=== PATIENT | female | born 1970 | race Caucasian/White ===

== ENCOUNTER 2016-05-02 13:21 | Emergency (ER) | payer BC ==
[2016-05-02 14:56] VITALS: BP 153/98
--- NOTE | 2016-05-02 15:05 | UC ---
Respiratory Complaint HPI - HPI Summary HPI Summary: The patient comes in today for: 1. Sinus pressure--mostly on the left. Onset: Over the last 3 days--getting worse each day. Palliative/provocative: Nothing makes her symptoms better or worse. Quality: Pressure. Region: Left forehead and left maxillary sinus. Severity: 10/10 though she looks more like 5/10 Time: Constant. Associated symptoms: Fever: None Upper tooth pain: Negative--she has an upper plate. Rhinitis: She has only gotten material out in the morning and she has not looked at it. Cough: "Just a little bit." She has not inspected this material either. She states that taking her Percocet and Celebrex once a day does not help her sinus pain. * - History of Current Complaint Chief Complaint: UCGeneralIllness Stated Complaint: SINUS COMPLAINT Time Seen by Provider: 05/02/16 14:59 Hx Obtained From: Patient Hx Last Menstrual Period: 04/10/16 ?: No - Allergies/Home Medications Allergies/Adverse Reactions: Allergies Allergy/AdvReac Type Severity Reaction Status Date / Time No Known Allergies Allergy Verified 05/02/16 14:56 Home Medications: Home Medications Tizanidine HCl 4 - 8 mg PO BEDTIME 05/02/16 [History Confirmed 05/02/16] celeCOXIB CAP* [Celebrex CAP*] 200 mg PO DAILY 05/02/16 [History Confirmed 05/02] PMH/Surg Hx/FS Hx/Imm Hx Previously Healthy: No - Degenerative joint disease, restless legs Endocrine History Of: Denies: Diabetes, Thyroid Disease, Hyperthyroidism, Hypothyroidism, Dyslipidemia Cardiovascular History Of: Denies: Cardiac Disorders, Hypertension, Pacemaker/ICD, Myocardial Infarction , Congestive Heart Failure, Atrial Fibrillation, Deep Vein Thrombosis, Bleeding Disorders Respiratory History Of: Reports: Asthma - Uses inhalers infrequently and episodically. Denies: COPD, Bronchitis, Pneumonia, Pulmonary Embolism GI/ History Of: Denies: Gastroesophageal Reflux, Ulcer, Gastrointestinal Bleed, Gall Bladder Disease, Kidney Stones, Diverticulitis, Renal Disease, Urosepsis Neurological History Of: Denies: TIA, CVA, Dementia, Seizures, Migraine Psychological History Of: Denies: Anxiety, Depression, Bipolar Disorder, Schizophrenia, Post Traumatic Stress Disorder Cancer History Of: Denies: Lung Cancer, Colorectal Cancer, Breast Cancer, Prostate Cancer, Cervical Cancer Other History Of: Negative For: HIV, Hepatitis B, Hepatitis C, Anticoagulant Therapy - Surgical History Surgical History: Yes Surgery Procedure, Year, and Place: APPY - Family History Known Family History: Negative: Cardiac Disease, Diabetes - Social History Occupation: Employed Full-time Alcohol Use: None Substance Use Type: None Smoking Status (MU): Light Every Day Tobacco Smoker Type: Cigarettes Amount Used/How Often: 3/3 ppd - Immunization History Most Recent Influenza Vaccination: [id number] Review of Systems Constitutional: Negative Skin: Negative Eyes: Negative ENT: Sore Throat, Nasal Discharge Respiratory: Cough Cardiovascular: Negative Gastrointestinal: Negative Genitourinary: Negative All Other Systems Reviewed And Are Negative: Yes Physical Exam Triage Information Reviewed: Yes Appearance: Well-Appearing, No Pain Distress, Well-Nourished Vital Signs: Initial Vital Signs Temp 97.8 F 05/02/16 14:49 Pulse 65 05/02/16 14:49 Resp 16 05/02/16 14:49 BP 153/98 05/02/16 14:49 Pulse Ox 100 05/02/16 14:49 Vital Signs Reviewed: Yes Eyes: Positive: Conjunctiva Clear. Negative: Discharge ENT: Positive: Hearing grossly normal, Other: - Frontal and maxillary sinus tenderness to palpation.. Negative: Pharyngeal erythema, Nasal congestion, Nasal drainage, TM bulging, TM dull, TM red, Tonsillar swelling, Tonsillar exudate Dental: Negative: Gross Decay/Caries @, Dental Fracture @ Neck: Positive: Supple, Nontender, No Lymphadenopathy. Negative: Nuchal Rigidity Respiratory: Positive: Lungs clear, No respiratory distress, No accessory muscle use. Negative: Crackles, Wheezing Cardiovascular: Positive: RRR, No Murmur Abdomen Description: Positive: Nontender, No Organomegaly, Soft. Negative: Distended, Guarding Musculoskeletal: Positive: Strength Intact, ROM Intact Neurological: Positive: Alert, Muscle Tone Normal Psychological: Positive: Age Appropriate Behavior, Consolable Skin: Negative: rashes, breakdown UC Diagnostic Evaluation - Laboratory O2 Sat by Pulse Oximetry: 100 Respiratory Course/Dx - Differential Dx/Diagnosis Differential Diagnosis/HQI/PQRI: Bronchitis, Laryngitis, Sinusitis Provider Diagnoses: High blood pressure. Sinusitis Discharge - Discharge Plan Condition: Stable Disposition: HOME Patient Education Materials: Sinusitis (ED) Referrals: Norma Herrera MD [Primary Care Provider] - 1 Week (Please see your primary care provider next week to see how well you are doing and how your blood pressure is doing. If you get worse, please go to the ER. Please use over-the- counter Flonase to help reduce the swelling in the sinuses to allow better drainage. These steroid nasal sprays used to be prescription, but they are now [id number]. )
== END 2016-05-02 15:25 | disposition home or self-care (01) ==
LOC: UCCORT 13:21
DX: J32.9 Chronic sinusitis, unspecified (principal); R03.0 Elevated blood-pressure reading, without diagnosis of hypertension; F17.210 Nicotine dependence, cigarettes, uncomplicated
CPT/HCPCS: 99212; G0463

== ENCOUNTER 2016-05-06 12:48 | Emergency (ER) | payer BC ==
[2016-05-06 13:51] VITALS: BP 153/112
--- NOTE | 2016-05-06 14:01 | UC ---
Throat Pain/Nasal Kamari HPI - HPI Summary HPI Summary: complaint of nasal congestion and sinus pressure that started approx 1 week ago seen 05/02/16 and started augmentin feels like she isn't getting better with the augmentin sinus pressure has been incereasing constant headache, productive cough constantly blowing her nose still has sore throat tried several nettipot treatments without relief taking OTC severe sinus medication with minimal relief. the last few days was taking acetaminophen with some relief of headache hasn't needed her albuterol inhaler - History of Current Complaint Chief Complaint: UCRespiratory Stated Complaint: SINUS-SEEN 05/02 Time Seen by Provider: 05/06/16 13:49 Hx Obtained From: Patient Hx Last Menstrual Period: 04/12/16 - Allergies/Home Medications Allergies/Adverse Reactions: Allergies Allergy/AdvReac Type Severity Reaction Status Date / Time No Known Allergies Allergy Verified 05/06/16 13:51 PMH/Surg Hx/FS Hx/Imm Hx Previously Healthy: Yes Endocrine History Of: Denies: Diabetes, Thyroid Disease, Hyperthyroidism, Hypothyroidism, Dyslipidemia Cardiovascular History Of: Denies: Cardiac Disorders, Hypertension, Pacemaker/ICD, Myocardial Infarction , Congestive Heart Failure, Atrial Fibrillation, Deep Vein Thrombosis, Bleeding Disorders Respiratory History Of: Reports: Asthma, Bronchitis Denies: COPD, Pneumonia, Pulmonary Embolism GI/ History Of: Denies: Gastroesophageal Reflux, Ulcer, Gastrointestinal Bleed, Gall Bladder Disease, Kidney Stones, Diverticulitis, Renal Disease, Urosepsis Neurological History Of: Denies: TIA, CVA, Dementia, Seizures, Migraine Psychological History Of: Denies: Anxiety, Depression, Bipolar Disorder, Schizophrenia, Post Traumatic Stress Disorder Cancer History Of: Denies: Lung Cancer, Colorectal Cancer, Breast Cancer, Prostate Cancer, Cervical Cancer Other History Of: Negative For: HIV, Hepatitis B, Hepatitis C, Anticoagulant Therapy - Surgical History Surgical History: Yes Surgery Procedure, Year, and Place: APPY - Family History Known Family History: Negative: Cardiac Disease, Diabetes - Social History Occupation: Employed Full-time Lives: With Family Alcohol Use: None Substance Use Type: None Smoking Status (MU): Heavy Every Day Tobacco Smoker Type: Cigarettes Amount Used/How Often: 1 ppd Length of Time of Smoking/Using Tobacco: started at age 16 Have You Smoked in the Last Year: Yes - Immunization History Most Recent Influenza Vaccination: [id number] Review of Systems Constitutional: Negative Skin: Negative Eyes: Negative ENT: Ear Ache, Nasal Discharge Respiratory: Cough Cardiovascular: Negative Gastrointestinal: Negative Genitourinary: Negative Motor: Negative Neurovascular: Negative Musculoskeletal: Negative Neurological: Negative Psychological: Negative All Other Systems Reviewed And Are Negative: Yes Physical Exam Triage Information Reviewed: Yes Appearance: No Pain Distress, Well-Nourished, Ill-Appearing Vital Signs: Initial Vital Signs Temp 98 F 05/06/16 13:44 Pulse 85 05/06/16 13:44 Resp 16 05/06/16 13:44 BP 153/112 05/06/16 13:44 Pulse Ox 99 05/06/16 13:44 Vital Signs Reviewed: Yes Eyes: Positive: Conjunctiva Clear ENT: Positive: Pharyngeal erythema, Nasal congestion, Nasal drainage, TM bulging , Other: - frontal and mxillary sinus tenderness. Negative: TM red Neck: Positive: No Lymphadenopathy Respiratory: Positive: Lungs clear, Normal breath sounds, No respiratory distress Cardiovascular: Positive: RRR, No Murmur, Pulses Normal Abdomen Description: Positive: Nontender, Soft Bowel Sounds: Positive: Present Musculoskeletal: Positive: No Edema Neurological: Positive: Alert Psychological Exam: Normal Skin Exam: Normal Throat Pain/Nasal Course/Dx - Course Course Of Treatment: exam completed. will chnage from augmentin to doxycylcine. followup with PCP for elevated blood pressure - Differential Dx/Diagnosis Differential Diagnosis/HQI/PQRI: Sinusitis Provider Diagnoses: elevated blood pressure, sinusitis Discharge - Discharge Plan Condition: Stable Disposition: HOME Prescriptions: DOXYcycline CAP(*) [DOXYcycline 100MG CAP(*)] 100 mg PO BID #20 cap Patient Education Materials: Sinusitis (ED) Referrals: Norma Herrera MD [Primary Care Provider] - Additional Instructions: Your blood pressure is elevated. Please contact your primary care provider for further evaluation Stop taking augmentin and start doxycycline SINUSITIS What is Sinusitis? Sinusitis is inflammation or infection of the lining of the sinuses behind the bones in your cheeks or forehead. Sinusitis may occur following a common cold, flu, or other infection; allergies; a tooth infection that spreads to the sinuses; swimming in contaminated water; pressure changes in airplanes at high altitudes; violent sneezing or nose blowing or smoking or breathing other peoples smoke. Symptoms Might Include: Nasal Congestion Sneezing Watery eyes, eye irritation, or eye itching Headaches Pressure in the cheeks Wheezing Trouble smelling Sore throat and coughing may occur Treatment Recommendations: Take medicines as prescribed until completely gone. Drink plenty of fluids. Use saline nose spray to thin the mucous and help the sinuses drain. Use a vaporizer or humidifier. Apply warm compresses to the face or forehead several times a day for 10 to 20 minutes. Call Your Doctor or Return Here IF: Your pain increases during treatment. You develop a high temperature. You develop unusual swelling around the eyes. You have difficulty with your vision. You develop a severe headache, earache, or toothache. You develop increased fever or fever that does not respond to medication such as Tylenol?. You have difficulty breathing or catching your breath. You begin to have any other new symptoms that worry you.
== END 2016-05-06 14:19 | disposition home or self-care (01) ==
LOC: UCCORT 12:48
DX: J32.9 Chronic sinusitis, unspecified (principal); R03.0 Elevated blood-pressure reading, without diagnosis of hypertension; F17.210 Nicotine dependence, cigarettes, uncomplicated
CPT/HCPCS: 99212; G0463

== ENCOUNTER 2018-05-15 14:06 | Emergency (ER) | payer OTHER ==
--- OUTSIDE RECORDS SUMMARY | 2018-05-15 14:27 | XMS REPORT | Continuity of Care Document ---
:1970 External Reference #:[id number] Author Name Avel Martinez FNP Address [address] [place] [address] Care Team Providers Name Role Phone Avel Martinez, EROSION CONTROL SPECIALIST Care Team Information Personal Support Worker Unavailable Avel Martinez, EROSION CONTROL SPECIALIST Primary Care Physician Unavailable Payers Date Identification Numbers Payment Provider Subscriber Policy Number: [id number] [place] Chinyere Chong PayID: [id number] [address] [address] [place] [address] Expires: 2016 Policy Number: [id number] Medicaid Chinyere Chong PayID: [id number] [address] [place] [address] Advance Directives Description No Information Available Problems Date Description Provider Status Onset: 02/10/2012 Idiopathic scoliosis AND/OR Andrew Gallegos MD, FACS Active kyphoscoliosis Onset: 03/23/2012 Displacement of lumbar Andrew Gallegos MD, FACS Active intervertebral disc without myelopathy Onset: 03/23/2012 Lumbosacral spondylosis without Andrew Gallegos MD, FACS Active myelopathy Onset: 10/10/2016 Skin sensation disturbance Avel Martinez FNP Active Onset: 10/10/2016 Mild persistent asthma Avel Martinez FNP Active Onset: 10/10/2016 Enthesopathy of hip region Avel Martinez FNP Active Onset: 10/10/2016 Nicotine dependence, cigarettes, Avel Martinez FNP Active with other nicotine-induced disorders Onset: 07/15/2017 Thyroid nodule Avel Martinez FNP Active Note: Document: 06/17/17 - Consult ENT - Domingo Haywood M. Onset: 02/10/2012 Arthralgia of the pelvic Andrew Gallegos MD, FACS Resolved region and thigh Resolved: 10/10/2016 Onset: 02/10/2012 Low back pain Andrew Gallegos MD, FACS Resolved Resolved: 10/10/2016 Onset: 02/10/2012 Sciatica Andrew Gallegos MD, FACS Resolved Resolved: 10/10/2016 Family History Date Family Member(s) Observation Comments Father due to Unknown Causes () Mother due to Cervical Cancer () Paternal Grandfather Unknown Paternal Grandmother Unknown Maternal Grandfather due to Unknown Causes () Maternal Grandmother due to Unknown Causes () Maternal Grandmother Alcoholism Social History Type Date Description Comments Sex Unknown Lives With Alone Diet Patient follows no dietary restrictions Occupation [employer] Tobacco Use Start: Unknown Current Cigarette Smoker 1 Pack Daily ETOH Use Rarely consumes alcohol Tobacco Use Reviewed: 05/05/18 Heavy tobacco smoker (more 1/2 - 1 PPD started age than 10 cigarettes/day) 16. Smoking Status Reviewed: 05/05/18 Heavy tobacco smoker (more 1/2 - 1 PPD started age than 10 cigarettes/day) 16. Allergies, Adverse Reactions, Alerts Date Description Reaction Status Severity Comments 10/10/2016 Penicillin Active 02/10/2012 NKDA Inactive Medications Medication Date Status Form Strength Qnty SIG Indications Ordering Provider Naproxen 05/06/19 Active Tablets 500mg 60tab take one G56.01 Clune, 19 s tablet by Jenniferl mouth twice eigh, [employer] a day Splint Wrist 05/06/19 Active Misc 1unit use on rt G56.01 Clune, Brace/Left-Ri 19 s wrist at Jenniferl ght/Reversibl night and eigh, [employer] e as needed for work Tizanidine 07/29/19 Active Capsules 4mg 90cap 1 by mouth Clune, HCL 18 s three times Jenniferl a day as eigh, [employer] needed mdd 3 Wellbutrin SR 06/21/19 Active Tablets ER 150mg 60tab take one Z76.0 Clune, 18 12HR s tablet by Jenniferl mouth twice eigh, [employer] a day for mood Oxybutynin 05/23/19 Active Tablets 5mg 60tab Take One N39.46 Clune, Chloride 18 s Tablet By Jenniferl Mouth Every eigh, [employer] Day For Bladder Leakage Ventolin HFA 10/11/19 Active Aerosol 108(90Bas 8gm 2 puffs by J45.30 Clune, 17 e) mouth every Jenniferl mcg/Act 4 hours as eigh, [employer] needed Benadryl Active Capsules 25mg 30cap using otc Clune, Allergy 00 s Jenniferl eigh, [employer] Montelukast Active Tablets 10mg 1 by mouth Unknown Sodium 00 every day Omeprazole Active Capsules DR 40mg 1 by mouth Unknown 00 every day Oxycodone HCL Active Tablets 15mg 1q6h for Unknown 00 pain Gabapentin Active Capsules 400mg 1-2 by Unknown 00 mouth three times a day Fluticasone 07/16/19 Hx Suspension 50mcg/Act 48gm 1 spray J34.2 Clune, Propionate 18 - each Jenniferl 05/06/19 nostril eigh, [employer] 19 twice a day Nasonex 12/28/19 Hx Suspension 50mcg/Act 34gm one spray J34.2 Clune, 17 - each Jenniferl 07/16/19 nostril one eigh, [employer] 18 to two times a day Claritin D 12/27/19 Hx Solution 2Bott one spray J34.2 Clune, Nasal [place] 17 - les each Jenniferl 12/28/19 nostril eigh, [employer] 17 once a day Flagyl 12/27/19 Hx Tablets 500mg 14tab one by A59.9 Clune, 17 - s mouth twice Jenniferl 01/03/20 a day x 7 eigh, [employer] 17 days Butalbital/Ac 11/14/19 Hx Capsules 50-325-40 9caps one at R51 Clune, etaminophen/C 17 - mg onset of Jenniferl affeine 07/29/19 headache, eigh, [employer] 18 may repeat dose 2 hours later Amoxicillin/C 11/12/19 Hx Tablets 875-125mg 20tab one by J01.90 Juan, lavulanate 17 - s mouth twice Jenniferl Potassium 11/22/19 a day x 10 eigh, [employer] 17 days Prednisone 11/12/19 Hx Tablets 20mg 10tab 1 tab by J01.90 Clune, 17 - s mouth twice Jenniferl 11/17/19 a day x 5 eigh, [employer] 17 days Singulair 11/05/19 Hx Tablets 10mg 90tab 1 by mouth Juan, 17 - s every Jenniferl 12/27/19 evening eigh, [employer] 17 Tolterodine 11/01/19 Hx Tablets 1mg 60tab one tablet N39.46 Clune, Tartrate 17 - s by mouth Jenniferl 05/23/19 twice a day eigh, [employer] 18 Chantix 11/01/19 Hx Tablets 0.5mg X 1tabs as per F17.218 Juan, Starting 17 - 11 & 1 mg package [facility] Month Cipriano 12/27/19 X 42 directions eigh, [employer] 17 - Zyban 10/11/19 Hx Tablets ER 150mg 60tab one by Z71.6 Clune, 17 - 12HR s mouth every Jenniferl 11/01/19 day x 7 eigh, [employer] 17 days then increase to twice a day, 8 hours apart, try to avoid bedtime Percocet 04/01/19 Hx Tablets 5-325mg 30tab 1 tab q4h Rosy 13 - s prn Andrew Reese 10/11/19 , FACS 17 Naproxen Kit 02/07/20 Hx Tablets 500mg 60tab 1 po bid Sharon 12 - s prn with Norma 10/11/19 obi , 17 Amoxicillin 02/07/20 Hx Tablets 500mg 20tab 1 po bid Sharon 12 - s Norma 02/16/19 MD 13 Naproxen Hx Tablets 40tab 1 po bid Unknown 00 - s 10/11/19 17 Amoxicillin Hx Capsules 1 tab po qd Unknown 00 - times 3 Unknown days Flexeril Hx Tablets 1 po prn Unknown - 10/11/19 17 Percocet Hx Tablets 30tab 1 tab q4h Rosy 00 - shelia Reese, 04/01/19 , FACS 13 Oxycodone HCL Hx Tablets 10mg 1 by mouth Unknown 00 - every 4-6 07/29/19 hour as 18 needed Tizanidine Hx Tablets 4mg Take One Unknown HCL 00 - Tablet By 12/27/19 Mouth Three 17 Times A Day as Directed Celecoxib Hx Capsules 200mg Take 1- 2 Unknown 00 - Capsules By 05/06/19 Mouth Once 19 Daily as Directed Tramadol HCL Hx Tablets 50mg Take Two Unknown 00 - Tablet By 05/06/19 Mouth AT 19 Night as Needed Gabapentin Hx Capsules 100mg Esteban - MD Sorin 07/29/19 18 Fexofenadine Hx Tablets 180mg 1 by mouth Unknown HCL 00 - at night 05/06/19 19 Gabapentin Hx Capsules 300mg 1 by mouth Unknown 00 - three times 05/06/19 a day 19 Immunizations CPT Code Status Date Vaccine Lot # 31078 Given 01/06/2018 Influenza Virus Vaccine, Quadrivalent, 36 Mos+, .5ML 45101 Given 10/31/2016 Influenza Virus Vaccine, Quadrivalent, Slit Virus, [id number] Im Use 31757 Given 10/10/2016 Tdap injection [id number] Vital Signs Date Vital Result Comment 05/05/2018 11:22am BP Systolic Sitting Left Arm 122 mmHg BP Diastolic Sitting Left Arm 76 mmHg Heart Rate 88 /min Respiratory Rate 18 /min Height 63 inches 5'3" Weight 175.00 lb BMI (Body Mass Index) 31.0 kg/m2 BSA (Body Surface Area) 1.83 m2 [place] body weight in kilograms 52 kg 07/28/2017 2:19pm BP Systolic Sitting Left Arm 128 mmHg BP Diastolic Sitting Left Arm 76 mmHg Heart Rate 78 /min Respiratory Rate 18 /min Height 63 inches 5'3" Weight 182.12 lb BMI (Body Mass Index) 32.3 kg/m2 BSA (Body Surface Area) 1.86 m2 [place] body weight in kilograms 52 kg 12/26/2016 1:03pm BP Systolic 128 mmHg BP Diastolic 82 mmHg Heart Rate 68 /min Respiratory Rate 16 /min Height 63 inches 5'3" Weight 178.00 lb BMI (Body Mass Index) 31.5 kg/m2 BSA (Body Surface Area) 1.84 m2 [place] body weight in kilograms 52 kg 11/11/2016 2:44pm BP Systolic Sitting Left Arm 120 mmHg BP Diastolic Sitting Left Arm 74 mmHg Body Temperature 98.6 F Heart Rate 80 /min Respiratory Rate 18 /min Height 63 inches 5'3" Weight 171.00 lb BMI (Body Mass Index) 30.3 kg/m2 BSA (Body Surface Area) 1.81 m2 [place] body weight in kilograms 52 kg 10/31/2016 2:26pm BP Systolic Sitting Left Arm 124 mmHg BP Diastolic Sitting Left Arm 76 mmHg Body Temperature 97.8 F Heart Rate 80 /min Respiratory Rate 18 /min Height 63 inches 5'3" Weight 168.00 lb BMI (Body Mass Index) 29.8 kg/m2 BSA (Body Surface Area) 1.80 m2 [place] body weight in kilograms 52 kg 10/10/2016 9:44am BP Systolic Sitting Left Arm 136 mmHg BP Diastolic Sitting Left Arm 82 mmHg Heart Rate 88 /min Respiratory Rate 20 /min Height 63 inches 5'3" Weight 175.12 lb BMI (Body Mass Index) 31.0 kg/m2 BSA (Body Surface Area) 1.83 m2 [place] body weight in kilograms 52 kg Last Menstrual Period [id number] 02/10/2012 8:59am BP Systolic Sitting Right Arm 112 mmHg BP Diastolic Sitting Right Arm 62 mmHg Height 64.5 inches 5'4.50" Weight 161.00 lb BMI (Body Mass Index) 27.2 kg/m2 02/07/2012 9:17am BP Systolic 122 mmHg BP Diastolic 82 mmHg Heart Rate 68 /min Respiratory Rate 18 /min Height 63 inches 5'3" Weight 159.00 lb Results Test Date Facility Test Result H/L Range Note Urine Dipstick 05/05/2018 [facility] Ua Leuko - Negative Ua Nitrite - Negative Ua Urobilinogen .2 0.2 - 1.0 E.U./dL Ua Protein - Negative Ua PH 5 Low 6.5-7.5 Ua Blood - Negative Ua Specific [place] 1.020 1.010-1.030 Ua Ketones - Negative Ua Bilirubin - Negative Ua Glucose - Negative Allergens,Zone 1 01/19/2018 [facility] mRast Class (Text (SEE NOTE) 1, [address] Only) [place] [address] [phone] D Pteronyssinus <0.10 kU/L Class 0 D Farinae Mite <0.10 kU/L Class 0 Cat Hair/Dander <0.10 kU/L Class 0 Dog Hair/Dander <0.10 kU/L Class 0 Bluegrass,Kentwellspan healthy 0.12 kU/L Class 0/I Bermuda Grass <0.10 kU/L Class 0 Bahia Grass <0.10 kU/L Class 0 Cockroach,Russian <0.10 kU/L Class 0 Penicillium Not <0.10 kU/L Class 0 Cladosporium Herbarum <0.10 kU/L Class 0 Apergillis Fumigatus Ige <0.10 kU/L Class 0 Mucor Racemosus <0.10 kU/L Class 0 Alternaria Alternata <0.10 kU/L Class 0 Stemphylium Bot <0.10 kU/L Class 0 Birch,White <0.10 kU/L Class 0 Pledger,White <0.10 kU/L Class 0 Elm,Russian (White) <0.10 kU/L Class 0 Zheng,White <0.10 kU/L Class 0 Hazelnut Tree T004 Ige <0.10 kU/L Class 0 Davison,White <0.10 kU/L Class 0 [place],White <0.10 kU/L Class 0 [place],Mountain <0.10 kU/L Class 0 Ragweed,Short/ <0.10 kU/L Class 0 Mugwort <0.10 kU/L Class 0 Plantain,Andorran <0.10 kU/L Class 0 Pigweed,Rough <0.10 kU/L Class 0 Sheep [place] (DO <0.10 kU/L Class 0 Nettle <0.10 kU/L Class 0 3 Maple/[place] Ige T001 <0.10 kU/L Class 0 Urine Culture 10/31/[address] Urine NO GROWTH: 4, 5 [address] [facility] Culture FINAL <[place] [address] NOTE> [phone] Comprehensive 10/11/[address] [address] Glucose 78 mg/dL N 74-10 6 Metabolic Panel [address] [facility] 6 [place] [address] [phone] BUN 13 mg/dL N 7-18 Creatinine 0.9 mg/dL N 0.6-1.3 Glom Filtration Rate, Estimate >60 mL/min >60 If >60 mL/min >60 7 BUN/Creat 14.4 ratio Sodium 138 mmol/L N 136-145 Potassium 4.1 mmol/L N 3.5-5.1 Chloride 105 mmol/L N 98-107 Carbon Dioxide 30 mmol/L N 21-32 Anion Gap 3 mEq/L Low 8-16 Calcium 8.9 mg/dL N 8.5-10.1 Total Protein 7.7 g/dL N 6.4-8.2 Albumin 3.8 g/dL N 3.4-5.0 Globulin 3.9 g/dL N 1.9-4.3 Alb/Glob 1.0 ratio Bilirubin,Total 0.3 mg/dL N 0.2-1.0 Sgot/Ast 17 U/L N 15-37 SGPT/Alt 29 U/L N 12-78 Alkaline Phosphatase 86 U/L N 45-117 Glycohemoglobin A1c 10/11/[address] Glycohemoglobin 5.8 % N 4.2-6.[address] (A1c) [place], [place] [id number] [phone] eAG 120 mg/dL Laboratory test 10/11/[address] Thyroid Stim 1.16 N 0.30- 4.[address] Hormone uIU/mL [place], [place] [address] [phone] LDL Cholesterol 10/11/[address] Cholesterol 243 mg/dL High < 200 [address] [place], [place] [address] [phone] Triglycerides 182 mg/dL High <150 10 HDL Cholesterol 54 mg/dL >40 11 LDL-Cholesterol 153 mg/dL < 100 12 CBS W/Automated Diff 10/11/[address] White Blood 9.0 K/uL N 3.1-10.[address] Count [place], [place] [address] [phone] Red Blood Count 5.26 M/uL N 3.90-5.40 Hemoglobin 16.5 gm/dL High 11.6-15.8 Hematocrit 49.3 % High 36.0-46.1 Mean Cell Volume 93.7 fl N 80.9-99.0 Mean Corpuscular HGB 31.4 pg N 25.9-32.7 Mean Corpuscular HGB Conc 33.5 g/dL N 30.8-34.3 Platelet Count 262 K/uL N 150-400 Red Cell Distri Width SD 47.7 fl High 3-47 Red Cell Distri Width %CV 14.0 % N 11.7-14.4 Mean Platelet Volume 10.1 fL N 8.9-12.4 Neut% 61.6 % N 40.4-72.8 Lymph % 28.5 % N 20.0-42.0 Merrick % 8.6 % N 4.3-13.2 Eo% 1.1 % N 0.0-6.6 Bas% 0.2 % N 0.0-1.1 Neut# 5.54 K/uL N 1.8-7.0 Lymph # 2.56 K/uL N 1.0-4.0 Merrick # 0.77 K/uL N 0.3-0.9 Eos # 0.10 K/uL N 0.0-0.5 Baso # 0.02 K/uL N 0.0-0.1 Basic Metabolic Panel 04/19/2015 [facility] Glucose 100 mg/dL 74-106 [address] [place] [address] [phone] BUN 8 mg/dL 7-18 Creatinine 0.8 mg/dL 0.6-1.3 Glom Filtration Rate, Estimate >60 mL/min >60 If >60 mL/min >60 13 BUN/Creat 10.0 ratio Sodium 138 mmol/L 136-145 Potassium 3.7 mmol/L 3.5-5.1 Chloride 101 mmol/L 98-107 Carbon Dioxide 32 mmol/L 21-32 Anion Gap 5 mEq/L Low 8-16 Calcium 8.9 mg/dL 8.5-10.1 CBC 04/19/2015 [facility] White Blood Count 9.0 K/uL 3.1-10.7 [address] [place] [address] [phone] Red Blood Count 4.82 M/uL 3.90-5.40 Hemoglobin 15.5 gm/dL 11.6-15.8 Hematocrit 45.9 % 36.0-46.1 Mean Cell Volume 95.2 fl 80.9-99.0 Mean Corpuscular HGB 32.2 pg 25.9-32.7 Mean Corpuscular HGB Conc 33.8 g/dL 30.8-34.3 Platelet Count 239 K/uL 155-360 Red Cell Distri Width %CV 14.9 % High 11.7-14.4 Mean Platelet Volume 9.5 fL 8.9-12.4 Lipid Profile 02/07/2012 N2N/CCD Import Cholesterol 198 mg/dL Less than (Trig/Chol/HDL) 200 Cholesterol/HDL Ratio 4.2 Average 1-4.44 HDL Cholesterol 47 mg/dL 40-60 14 LDL Cholesterol 132.0 mg/dL High Less Than 100 15 Triglycerides 95 mg/dL 40-200 Basic Metabolic Panel 02/07/2012 N2N/CCD Import Anion Gap 5.0 mmol/L 2- 11 BUN/Creatinine Ratio 18.8 8-20 Blood Urea Nitrogen 15 mg/dL 6-24 Calcium 9.4 mg/dL 8.1-9.9 Chloride 104 mmol/L 101-111 Co2 Carbon Dioxide 31.0 mmol/L 22-32 Creatinine 0.80 mg/dL 0.50-1.40 Egfr 101.7 >60 16 Egfr Non- 79.0 >60 Glucose 96 mg/dL 70-100 Potassium 4.0 mmol/L 3.5-5.0 Sodium 140 mmol/L 133-145 Laboratory test 02/07/2012 N2N/CCD Import TSH (Thyroid 1.71 miu/mL 0.34- 5.60 finding Stimulating Horm) Laboratory test 02/06/2012 N2N/CCD Import Cytology Pap See Note 17 finding 1 J32.9 J31.0 2 Levels of Specific IgE Class Description of Class ----- < 0.10 0 Negative 0.10 - 0.31 0/I Equivocal/Low 0.32 - 0.55 I Low 0.56 - 1.40 II Moderate 1.41 - 3.90 III High 3.91 - 19.00 IV Very High 19.01 - 100.00 V Very High >100.00 Very High 3 Test(s) [id number]-ZhB Alison Box; [id number]- Y418-PsB Amber Pennington were developed and had performance characteristics determined by [employer]. These tests have not been cleared or approved by the U.S. Food and Drug Administration. The FDA has determined that such clearance or approval is not necessary. These tests are used for clinical purposes. These should not be regarded as investigational or for research. Performed at: - [facility] [id number] Electronic Repair Troubleshooter: Arnol Ellison MD, Phone: [phone] 4 N39.46 Z01.411 5 NO GROWTH: FINAL REPORT 6 Z13.6 R20.0 Z00.01 7 Note: Persistent reduction for 3 months or more in an eGFR <60 mL/min/1.73 m2 defines CKD. Patients with eGFR values >/=60 mL/min/1.73 m2 may also have CKD if evidence of persistent proteinuria is present. The original MDRD equation for estimated GFR is not valid for patients less than 18 years of age. Additional information may be found at www.kdoqi.org. 8 Elevated levels of HbA1c suggest the need for more aggressive treatment of glycemia. The [place] Diabetes Association recommends that a primary goal of therapy should be a HbA1c of <7% and that physicians should re-evaluate the treatment regimen in patients with HbA1c values consistently >8%. 9 Reference Guidelines*: Desirable: ........... < 200 mg/dL Borderline High: ..... 200-239 mg/dL High: ................ >=240 mg/dL * The National Cholesterol Education Program (NCEP) 10 Reference Guidelines*: Normal: ............. < 150 mg/dL Borderline High: .... 150-199 mg/dL High: ............... 200-499 mg/dL Very High: .......... > 500 mg/dL * Source: National Cholesterol Education Program (NCEP) 11 Reference Guidelines*: Low HDL: ..... < 40 mg/dL Normal: ..... 40-60 mg/dL Desirable: ... > 60 mg/dL *The National Cholesterol Education Program(NCEP) 12 Reference Guidelines*: Optimal:........... <100 mg/dL Near Optimal....... 100-129 mg/dL Borderline High.... 130-159 mg/dL High............... 160-189 mg/dL Very High.......... >=190 mg/dL * Source: National Cholesterol Education Program (NCEP) 13 Note: Persistent reduction for 3 months or more in an eGFR <60 mL/min/1.73 m2 defines CKD. Patients with eGFR values >/=60 mL/min/1.73 m2 may also have CKD if evidence of persistent proteinuria is present. The original MDRD equation for estimated GFR is not valid for patients less than 18 years of age. Additional information may be found at www.kdoqi.org. 14 HDL Interpretation: Undesirable: High Risk: Less than 40 MG/DL Desirable: Low Risk: Greater than 60 MG/DL 15 LDL Interpretation: Low Risk Optimal Level: LDL Less than 100 MG/DL Near or Above Optimal: LDL 100-129 MG/DL Borderline High Risk: LDL 130-159 MG/DL High Risk : LDL 160-189 MG/DL Very High Risk: LDL Greater than 189 MG/DL 16 Because ethnic data is not always readily available, this report includes an eGFR for both -Americans and non- Americans. The National Kidney Disease Education Program (NKDEP) does not endorse the use of the MDRD equation for patients that are not between the ages of 18 and 70, are , have extremes of body size, muscle mass, or nutritional status, or are non- or non-. According to the National Kidney Foundation, irrespective of diagnosis, the stage of the disease is based on the level of kidney function: Stage Description GFR(mL/min/1.73 m(2)) 1 Kidney damage with normal or decreased GFR 90 2 Kidney damage with mild decrease in GFR 60- 89 3 Moderate decrease in GFR 30-59 4 Severe decrease in GFR 15-29 5 Kidney failure <15 (or dialysis) 17 Cytology Laboratory [address] [place] [address] CYTOLOGY REPORT Name: Chinyere Chong Accession # : [id number] : 1970 (Age: 41) Sex: F Location: [facility] Med. Rec. # Date Collected: 02/06/2012 Billing #: [id number] Date Received: 02/06 Physician(s): NORMA BROWN MD Source of Specimen: ENDOCERVICAL/ ECTOCERVICAL THIN PREP Clinical Information: Date of Last Menstrual Period: 02/03/12 Menstrual History: Regular Specimen Adequacy: SATISFACTORY FOR EVALUATION. ADEQUATE ENDOCERVICAL/TRANSFORMATION ZONE. General Categorization: NEGATIVE FOR INTRAEPITHELIAL LESION OR MALIGNANCY. Descriptive Evaluation: SHIFT IN CHELE SUGGESTIVE OF BACTERIAL VAGINOSIS. [email or web address] Electronic Signature Jamie Villagran MD Reported: 02/10/2012 Also seen by: DILIA Coughlin (ASCP) Cytology Outreach [facility] ICD-9 Code(s) V72.31 A: 616.10 Procedures Date Code Description Status 10/30/2016 35060 Bronchospasm Provocation Evaluation Multi Spirometric Completed Determinati 10/30/2016 11324 Spirometry Completed 10/30/2016 [id number] Mammogram Completed 03/23/2012 51562 Radiology, L-S Spine Complete Completed 02/10/2012 49875 Radiology, Hip Complete 2 Views Completed 02/10/2012 74721 Radiology, Hip Complete 2 Views Completed 10/15/2006 86698 EKG-Tracing And Report Completed 21468 Mammography Unilateral Completed Encounters Type Date Location Provider Dx Diagnosis Office Visit 05/05/2018 [facility] Juan, Z00.01 Encounter for 11:[address]a [address] Avel, general adult SIZING SPONGER medical exam w abnormal findings Z12.31 Encntr screen mammogram for malignant neoplasm of breast Z76.0 Encounter for issue of repeat prescription G56.01 Carpal tunnel syndrome, right upper limb M65.311 Trigger thumb, right thumb Z13.6 Encounter for screening for cardiovascular disorders F17.210 Nicotine dependence, cigarettes, uncomplicated Z71.6 Tobacco abuse counseling Office Visit 07/28/2017 Family Martinez M54.16 Radiculopathy, 2:15p [facility] [place] CASSIA Vallecillo lumbar region RD Office Visit 12/26/2016 [facility] Juan, N39.46 Mixed incontinence 1:00p [facility] [place] [address] J34.2 Deviated nasal septum R51 Headache A59.9 Trichomoniasis, unspecified Z72.0 Tobacco use Office Visit 11/11/2016 Family Martinez N39.46 Mixed 2:15p [facility] [place] CASSIA Vallecillo incontinence RD F17.210 Nicotine dependence, cigarettes, uncomplicated J01.90 Acute sinusitis, unspecified Office Visit 10/31/2016 [facility] Juan, Z01.419 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 2: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 [facility] CASSIA Vallecillo exam (general) RD (routine) w/o abn findings F17.218 Nicotine dependence, cigarettes, w oth disorders N39.46 Mixed incontinence Z23 Encounter for immunization R10.814 Left lower quadrant abdominal tenderness Office Visit 10/10/2016 Family Martinez, M47.26 Other spondylosis 9:30a [facility] [place] CASSIA Vallecillo with radiculopathy, RD lumbar region M70.72 Other bursitis of hip, left hip N92.6 Irregular menstruation, unspecified R20.0 Anesthesia of skin Z13.6 Encounter for screening for cardiovascular disorders J45.30 Mild persistent asthma, uncomplicated F17.218 Nicotine dependence, cigarettes, w oth disorders Z71.6 Tobacco abuse counseling Z12.31 Encntr screen mammogram for malignant neoplasm of breast Z23 Encounter for immunization Office Visit 03/23/2012 8:45a Orthopaedic Office Andrew Gallegos, 724.2 Last MERCADO, FACS 722.10 Intervertebral Disc Displacement Lumbar W/O Myelopathy 724.3 Sciatica 721.3 Spondylosis Lumbar W/O Myelopathy Office Visit 02/10/2012 9:00a Orthopaedic Office Andrew Gallegos 719.45 Pain Joint MD Mary Ann, FACS Pelvic Region & Thigh 724.2 Lumbago 724.3 Sciatica 737.30 Scoliosis & Kyphoscoliosis Idiopathic Plan of Treatment Future Appointment(s):05/18/2018 3:00 pm - Avel Martinez FNP at [facility] RD05/05/2018 - Avel Martinez, FNPZ00.01 Encounter for general adult medical examination with abnormaComments:depression screening negative Immunizations reviewed - recommend pneumococcal Mammogram overdue, orderedPap not indicated as last in 2017 and normal. Needs next year.STI testing not indicated. Colonoscopy starting age 50. Low dose [address] scan for lung cancer screening beginning age 55Z12.31 Encounter for screening mammogram for malignant neoplasm ofNew Xrays:Mammography, Screening Bilateral Mammogram, Ordered: 05/05/18Comments:Clinical breast exam normal today. We encourage monthly self breast examsyearly mammogram to be eghkzegiZ46.0 Encounter for issue of repeat mzfokpikfrbtB96.01 Carpal tunnel syndrome, right upper limbNew Medication:Naproxen 500 mg - take one tablet by mouth twice a daySplint Wrist Brace/Left-Right/Reversible - use on rt wrist at night and as needed for workComments:Discussed use of wrist brace Start with NSAID useFollow up:2 - 3 weeks recheck RT wrist CTSM65.311 Trigger thumb, right thumbComments:as zljfeB98.6 Encounter for screening for cardiovascular disordersNew Labs: Comprehensive Metabolic Panel, Ordered: 05/05/18LDL Cholesterol Profile, Ordered : 05/05/18CBC W/Automated Diff, Ordered: 05/05/18Thyroid Stim Hormone, Ordered: 05/05/18F17.210 Nicotine dependence, cigarettes, uncomplicatedComments:Have tried Wellbutrin but not being as effectiveAs your readiness to quit is 5/10, no medication additions at this time. When your desire and readiness to quit becomes more set, please contact the office for an appointment and we cn discuss further options.Z71.6 Tobacco abuse counseling
--- OUTSIDE RECORDS SUMMARY | 2018-05-15 14:27 | XMS REPORT | Continuity of Care Document ---
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 Avel Martinez FNP Primary Care Physician Unavailable Payers Date Identification Numbers Payment Provider Subscriber Policy Number: [id number] Darrel Chong PayID: [id number] [place] [address] Expires: 2016 Policy Number: [id number] CRISTA Chinyere Chong PayID: [id number] [address] [address] [place] [address] Advance Directives Description No Information Available Problems Description No Information Family History Date Family Member(s) Observation Comments Mother due to Cervical Cancer () Social History Type Date Description Comments Sex Unknown Occupation [employer] Tobacco Use Start: Unknown currently smokes 1/2 Pack Daily ETOH Use Rare Use Of Alcohol Recreational Drug Use Never Used Drugs Allergies, Adverse Reactions, Alerts Description No Known Drug Allergies Medications Medication Date Status Form Strength Qnty SIG Indications Ordering Provider Proair HFA 11/14/ Active Aerosol 108(90Bas 17gm 2 puffs Yobany 2018 e) four times Domingo, mcg/Act a day as M.D. needed for sob Nasacort Allergy 06/17/ Active Aerosol 55mcg/Act 10.80 2 squirts Yobany , 24HR 2017 0ml each Domingo, nostril M.D. every day Omeprazole 06/17/ Active Capsules 40mg 60cap 1 by mouth [address] every day [address] Oxycodone HCL / Active Tablets 10mg 1 tab Unknown 0000 every 4 hours as needed for back pain Celebrex / Active Capsules Unknown 0000 Tizanidine HCL 0000/ Active Capsules 4mg 1 by mouth Unknown 0000 every 8 hours as needed Gabapentin 0000/ Active Capsules 100mg 1 by mouth Unknown 0000 twice daily for 15 days Singulair 0000/ Active Tablets 10mg 30tab 1 by mouth Haywood, 0000 s every day Domingo, M.D. Prednisone 04/01/ Hx Tablets 5mg 14tab 1 by mouth Yobany, 2018 - s every day Domingo, M.D. 2018 Augmentin 01/07/ Hx Tablets 875-125mg 20tab twice a Yobany, 2017 - s day 10 Domingo, days M.D. 2018 Dexamethasone 01/07/ Hx Tablets 4mg 5tabs one tab Yobany, 2017 - daily for Domingo, days M.D. 2018 Augmentin 11/14/ Hx Tablets 875-125mg 14tab twice a Yobany, 2017 - s day 1 week Domingo, M.D. 2018 Dexamethasone 11/14/ Hx Tablets 4mg 5tabs one tab Yobany, 2017 - daily for Domingo, days M.D. 2018 Fexofenadine HCL 07/02/ Hx Tablets 180mg 30tab 1 by mouth Yobany, 2017 - s every day Domingo, M.D. 2018 Dexamethasone 06/27/ Hx Tablets 4mg 5tabs one tab Yobany, 2017 - daily for Domingo, days M.D. 2018 Augmentin 15/ Hx Tablets 875-125mg 14tab twice a Yobany, 2017 - s day 1 week Domingo, M.D. 2018 Levocetirizine 06/17/ Hx Tablets 5mg 90tab 1 by mouth Yobany, Dihydrochloride 2017 - s every day Domingo, M.D. 2018 Augmentin 16/ Hx Tablets 875-125mg 14tab twice a Yobany, 2017 - s day 1 week Domingo, M.D. 2018 Prednisone 03/26/ Hx Tablets 10mg 3tabs 1 by mouth Yobany, 2018 - every Domingo, 06/16/ morning M.D. 2018 Dexamethasone 01/13/ Hx Tablets 4mg 3tabs one tab Yobany, 2017 - daily for Domingo, 02/25/ 3 days M.D. 2018 Celecoxib 01/13/ Hx Capsules 100mg 30cap 1 by mouth Yobany, 2017 - s twice a Domingo, 02/25/ day M.D. 2018 Azelastine HCL 01/13/ Hx Solution 0.15% 1unit 2 sprays Yobany, (Nasal) 2017 - s each Domingo, 06/16/ nostril M.D. 2018 once a day Cyclobenzaprine / Hx Tablets 10mg 1 by mouth Unknown HCL 0000 - every 8 11/13/ hours for 2018 sinus infection Tizanidine HCL / Hx Tablets 4mg 1 twice Unknown 0000 - daily as needed 2018 [place] Plus / Hx Capsules 5-6.25-10 Unknown Severe Sinus 0000 - -325mg Congestion/Allerg & Cough 2018 Singulair / Hx Tablets 10mg 90tab 1 by mouth Yobany, 0000 - s every day Domingo, 11/13/ M.D. 2018 Wellbutrin SR / Hx Tablets ER 100mg 1 by mouth Unknown 0000 - 12HR every day 2017 Immunizations Description No Information Available Vital Signs Date Vital Result Comment 04/29/2018 2:55pm Weight 175.00 lb Height 63 inches 5'3" BMI (Body Mass Index) 31.0 kg/m2 BP Systolic 150 mmHg BP Diastolic 91 mmHg Heart Rate 69 /min O2 % BldC Oximetry 100 % Body Temperature 97.4 F Pain Level 8 04/01/2018 3:09pm Weight 171.00 lb Height 63 inches 5'3" BMI (Body Mass Index) 30.3 kg/m2 BP Systolic 134 mmHg BP Diastolic 93 mmHg Heart Rate 76 /min O2 % BldC Oximetry 100 % Body Temperature 96.9 F Pain Level 8 01/07/2018 11:40am Weight 162.00 lb Height 63 inches 5'3" BMI (Body Mass Index) 28.7 kg/m2 BP Systolic 125 mmHg BP Diastolic 85 mmHg Heart Rate 87 /min O2 % BldC Oximetry 97 % Body Temperature 96.2 F Pain Level 8 11/14/2017 8:56am Weight 166.38 lb Height 63 inches 5'3" BMI (Body Mass Index) 29.5 kg/m2 BP Systolic 152 mmHg BP Diastolic 91 mmHg Heart Rate 88 /min O2 % BldC Oximetry 96 % Body Temperature 97.6 F Pain Level 0 08/07/2017 10:52am Weight 175.00 lb Height 63 inches 5'3" BMI (Body Mass Index) 31.0 kg/m2 BP Systolic 137 mmHg BP Diastolic 88 mmHg Heart Rate 81 /min O2 % BldC Oximetry 100 % Body Temperature 97.8 F Pain Level 0 06/17/2017 11:06am Weight 177.00 lb Height 63 inches 5'3" BMI (Body Mass Index) 31.4 kg/m2 BP Systolic 125 mmHg BP Diastolic 85 mmHg Heart Rate 84 /min O2 % BldC Oximetry 99 % Body Temperature 98.6 F Pain Level 0 05/14/2017 10:28am Weight 172.00 lb Height 63 inches 5'3" BMI (Body Mass Index) 30.5 kg/m2 BP Systolic 130 mmHg BP Diastolic 88 mmHg Heart Rate 82 /min O2 % BldC Oximetry 99 % Body Temperature 98.1 F Pain Level 5 right ear 03/26/2017 1:19pm Weight 173.00 lb Height 63 inches 5'3" BMI (Body Mass Index) 30.6 kg/m2 BP Systolic 148 mmHg right arm BP Diastolic 89 mmHg right arm Heart Rate 102 /min O2 % BldC Oximetry 98 % room air Body Temperature 98.6 F Pain Level 0 02/26/2017 10:51am Weight 176.25 lb Height 63 inches 5'3" BMI (Body Mass Index) 31.2 kg/m2 BP Systolic 110 mmHg BP Diastolic 72 mmHg Heart Rate 91 /min O2 % BldC Oximetry 97 % Body Temperature 96.3 F Pain Level 0 12/04/2016 2:21pm Weight 176.12 lb Height 63 inches 5'3" BMI (Body Mass Index) 31.2 kg/m2 BP Systolic 165 mmHg recheck was 140/85 BP Diastolic 114 mmHg recheck was 140/85 Heart Rate 79 /min O2 % BldC Oximetry 96 % Body Temperature 98.0 F Pain Level 0 04/21/2015 11:08am Weight 196.50 lb Height 63 inches 5'3" BMI (Body Mass Index) 34.8 kg/m2 BP Systolic 126 mmHg BP Diastolic 100 mmHg Heart Rate 73 /min O2 % BldC Oximetry 100 % Body Temperature 98.2 F Results Test Date Facility Test Result H/L Range Note Allergens,Zone 01/19/2018 [facility] mRast Class (SEE NOTE) 1, 2 1 [address] (Text Only) [place] [address] [phone] D Pteronyssinus <0.10 kU/L Class 0 D Farinae Mite <0.10 kU/L Class 0 Cat Hair/Dander <0.10 kU/L Class 0 Dog Hair/Dander <0.10 kU/L Class 0 Bluegrass,[place] 0.12 kU/L Class 0/I Bermuda Grass <0.10 kU/L Class 0 Bahia Grass <0.10 kU/L Class 0 Cockroach,Ecuadorean <0.10 kU/L Class 0 Penicillium Not <0.10 kU/L Class 0 Cladosporium Herbarum <0.10 kU/L Class 0 Apergillis Fumigatus Ige <0.10 kU/L Class 0 Mucor Racemosus <0.10 kU/L Class 0 Alternaria Alternata <0.10 kU/L Class 0 Stemphylium Bot <0.10 kU/L Class 0 Birch,White <0.10 kU/L Class 0 [place],White <0.10 kU/L Class 0 Elm,Ecuadorean (White) <0.10 kU/L Class 0 Zheng,White <0.10 kU/L Class 0 Hazelnut Tree T004 Ige <0.10 kU/L Class 0 Mcdonald,White <0.10 kU/L Class 0 [place],White <0.10 kU/L Class 0 [place]ountain <0.10 kU/L Class 0 Ragweed,Short/ <0.10 kU/L Class 0 Mugwort <0.10 kU/L Class 0 Plantain,Hebrew <0.10 kU/L Class 0 Pigweed,Rough <0.10 kU/L Class 0 Sheep [place] (DO <0.10 kU/L Class 0 Nettle <0.10 kU/L Class 0 3 Maple/[place] Ige T001 <0.10 kU/L Class 0 1 J32.9 J31.0 2 Levels of Specific IgE Class Description of Class ----- < 0.10 0 Negative 0.10 - 0.31 0/I Equivocal/Low 0.32 - 0.55 I Low 0.56 - 1.40 II Moderate 1.41 - 3.90 III High 3.91 - 19.00 IV Very High 19.01 - 100.00 V Very High >100.00 Very High 3 Test(s) [id number] Cockroach, Ecuadorean; [id number]- [id number] Amber Pen[place] were developed and had performance characteristics determined by [employer]. These tests have not been cleared or approved by the U.S. Food and Drug Administration. The FDA has determined that such clearance or approval is not necessary. These tests are used for clinical purposes. These should not be regarded as investigational or for research. Performed at: [address] [id number] Desk Director: Arnol Ellison MD, Phone: [phone] Procedures Date Code Description Status 04/01/2018 91161 Ultrasound Head/Neck Completed 04/01/2018 92189 Fiberoptic Laryngoscopy,Diag. Completed 01/16/2018 85319 Cat Scan Maxillofacial W/O Contrast,computed Completed tomography 01/16/2018 45489 Cat Scan Maxillofacial W/O Contrast,computed Completed tomography 01/07/2018 15097 Nasal Endoscopy, Diag. Completed 11/14/2017 55240 Fiberoptic Laryngoscopy,Diag. Completed 08/07/2017 14476 Ultrasound Head/Neck Completed 08/07/2017 91602 Fiberoptic Laryngoscopy,Diag. Completed 06/17/2017 68553 Ultrasound Head/Neck Completed 06/17/2017 48710 Fiberoptic Laryngoscopy,Diag. Completed 05/14/2017 43307 Fiberoptic Laryngoscopy,Diag. Completed 02/19/2017 17304 Anesthesia, Nose & Accessory Sinus Surgery Not Completed Otherwise Spec 02/19/2017 41098 Submucous Resect.Turb.Par Or Comp Completed 02/19/2017 64541 Septoplasty Completed 02/19/2017 75552 Nasal/Sinus Endo Inc Sphenoido Completed 02/19/2017 61605 Nasal/Sinus Endosc.W.Explor. Completed 02/19/2017 34402 Stereotactic Computer-Assisted, Cranial, Extradural Completed 12/04/2016 36646 Nasal Endoscopy, Diag. Completed 02/27/2016 [id number] Bone Mineral Density Test Completed 02/27/2016 [id number] Diabetic Retinal Eye Exam Completed 02/27/2016 [id number] Diabetic Foot Exam Completed 04/21/2015 65250 Fiberoptic Laryngoscopy,Diag. Completed 09/16/2011 [id number] Bone Mineral Density Test Completed 09/16/2011 [id number] Diabetic Retinal Eye Exam Completed 09/16/2011 [id number] Diabetic Foot Exam Completed Encounters Type Date Location Provider Dx Diagnosis Office Visit 04/01/2018 Main Office Domingo Haywood M.D. J32.9 Chronic sinusitis, 3:00p unspecified E04.1 Nontoxic single thyroid nodule K21.9 Gastro-esophageal reflux disease without esophagitis Office Visit 01/07/2018 11:30a Main Office Domingo Haywood J32.9 Chronic sinusitis, M.D. unspecified J35.01 Chronic tonsillitis J31.0 Chronic rhinitis Office Visit 11/14/2017 8:45a Main Office Domingo Haywood, R06.02 Shortness of breath M.D. J04.0 Acute laryngitis J02.9 Acute pharyngitis, unspecified Office Visit 08/07/2017 10:45a Main Office Domingo Haywood K21.9 Gastro- esophageal reflux M.D. disease without esophagitis R13.10 Dysphagia, unspecified E04.1 Nontoxic single thyroid nodule K11.20 Sialoadenitis, unspecified Office Visit 06/17/2017 10:45a Main Office Domingo Haywood K21.9 Gastro- esophageal reflux M.D. disease without esophagitis J31.0 Chronic rhinitis E04.1 Nontoxic single thyroid nodule Office Visit 05/14/2017 10:15a Main Office Domingo Haywood J02.9 Acute pharyngitis, M.D. unspecified J04.0 Acute laryngitis K21.9 Gastro-esophageal reflux disease without esophagitis Office Visit 03/26/2017 1:15p Main Office Safia Franco R07.0 Pain in throat Angel, OCCUP THER Office Visit 01/13/2017 8:00a Main Office Domingo Haywood J32.9 Chronic sinusitis, M.D. unspecified J34.2 Deviated nasal septum J34.3 Hypertrophy of nasal turbinates Office Visit 12/04/2016 2:30p Main Office Domingo Haywood J32.9 Chronic sinusitis, MMalcomDMalcom unspecified J34.2 Deviated nasal septum J34.3 Hypertrophy of nasal turbinates Office Visit 04/21/2015 11:15a Main Office Domingo Haywood M.D. R07.0 Pain in throat J04.0 Acute laryngitis K21.9 Gastro-esophageal reflux disease without esophagitis E66.9 Obesity, unspecified Z72.0 Tobacco use Plan of Treatment No Information Available
--- OUTSIDE RECORDS SUMMARY | 2018-05-15 14:27 | XMS REPORT | Continuity of Care Document ---
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 [address] [place] [address] Effective: 2017 Policy Number: [id number] Medicaid MAKENZIE Chong Expires: 2017 PayID: [id number] [address] [place] [id number] Effective: 2017 Policy Number: [id number] [facility] Chinyere Chong PayID: [id number] [address] [address] [place] [address] Advance Directives Description No Information Available Problems Description No Information Family History Date Family Member(s) Observation Comments Father due to Stroke () Mother due to Cervical Cancer () Children 1 Social History Type Date Description Comments Sex Unknown Marital Status Cigarette Use Current Cigarette Smoker 1 Pack Daily ETOH Use Occasionally consumes alcohol Recreational Drug Use Denies Drug Use Tobacco Use Start: Unknown Patient is a current smoker, smokes every day Smoking Status Reviewed: 05/08/18 Patient is a current smoker, smokes every day Allergies, Adverse Reactions, Alerts Date Description Reaction Status Severity Comments 06/26/2012 Penicillin Active Medications Medication Date Status Form Strength Qnty SIG Indications Ordering Provider Gabapentin 03/05/ Active Capsules 400mg 90cap si by Janice Orellana s mouth Sorin, every 8 as WALI HORNE directed chronic pain. Oxycodone HCL 12/22/ Active Tablets 15mg 120ta si by Dmitry Orellana bs mouth Sorin, every 4 to DO, MPH 6 hours as directed chronic pain patient Zanaflex 07/12/ Active Tablets 4mg 90tab si by Dmitry Orellana s mouth Sorin, three a DO, MPH day as directed chronic pain patient Aleve / Active Capsules 220mg Unknown 0000 Singulair / Active Tablets 10mg 1 by mouth Unknown 0000 every day Omeprazole / Active Capsules 20mg 1 by mouth Unknown 0000 DR every day Wellbutrin SR / Active Tablets ER 150mg si by Unknown 0000 12HR mouth twice a day as directed Oxybutynin / Active Tablets 5mg Unknown Chloride 0000 Ventolin HFA / Active Aerosol 108(90Bas 1-2 puffs Unknown 0000 e) as needed mcg/Act every 4-6 hours for shortness for breath Benadryl Allergy / Active Tablets 25mg 1/2-1 by Unknown 0000 mouth three times a day as directed Gabapentin 04/23/ Hx Capsules 300mg 90cap si by Esteban 2018 - s mouth Sorin, 03/05/ three DO, MPH 2019 times a day as directed Gabapentin 12/23/ Hx Capsules 100mg 60cap take 1-2 Esteban 2017 - s capsules Sorin, 04/23/ by mouth DO, MPH 2018 at night Celebrex 07/05/ Hx Capsules 200mg 60cap si-2 by Esteban 2017 - s mouth Sorin, 09/10/ daily as DO, MPH 2016 directed chronic pain patient Oxycodone HCL 06/10/ Hx Tablets 10mg 120ta si by Darci Orellana - bs mouth Sorin, 10/24/ every 4 to DO, MPH 2016 6 hours as directed chronic pain patient Oxycodone HCL 06/06/ Hx Tablets 5mg 150ta si by Darci Orellana - bs mouth Sorin, 06/10/ every 4 to DO, MPH 2017 6 hours as directed chronic pain patient Celebrex 03/08/ Hx Capsules 200mg 30cap si by Esteban 2017 - s mouth Sorin, 07/05/ daily as DO, MPH 2016 directed chronic pain patient take with food and water. Gabapentin 02/07/ Hx Capsules 100mg 90cap take 1 Esteban 2015 capsules Sorin, 03/08/ by mouth DO, MPH 2016 every 8 hours ud. chronic pain. Cane 02/07/ Hx Misc 1unit use as Esteban 2015 - s directed Sorin, 04/08/ DO, MPH 2016 Meloxicam 01/08/ Hx Tablets 7.5mg 30tab si by Esteban 2015 - mouth Sorin, 03/08/ every DO, MPH 2016 morning as directed chronic pain. take with food. Tramadol HCL 07/12/ Hx Tablets 50mg 30tab si by Esteban 2015 mouth Sorin, 10/23/ every 8 DO, MPH 2018 hours as needed pain Zanaflex 03/16/ Hx Tablets 4mg 60tab sig:-1 by Esteban 2015 s mouth Sorin, 07/12/ every 8 to DO, MPH 2015 12 hours as directed chronic pain patient dose increase Zanaflex 11/14/ Hx Tablets 4mg 30tab si/2-1 Esteban 2014 s by mouth Sorin, 03/16/ at night DO, MPH 2015 as directed chronic pain patient Tramadol HCL 09/15/ Hx Tablets 50mg 60tab si-2 Esteban 2014 s by mouth Sorin, 07/12/ every DO, MPH 2015 night at bedtime as directed chronic pain. Cyclobenzaprine 09/15/ Hx Tablets 10mg 45tab si by TIANA Orellana 2014 mouth Sorin, 10/08/ every 8 DO, MPH 2016 hours as directed chronic pain Tramadol HCL 08/01/ Hx Tablets 50mg 90tab si by Esteban 2014 - s mouth Sorin, 09/15/ every 6 to DO, MPH 2014 8 hours as directed dosage change Gralise 07/18/ Hx Tablets 300mg 30tab si by Esteban 2014 - s mouth Sorin, 08/01/ every at DO, MPH 2014 night. take with food. Gabapentin 06/21/ Hx Capsules 100mg 30cap take 1 Esteban 2014 s capsules Sorin, 02/07/ by mouth DO, MPH 2016 every evening ud. chronic pain. Oxycodone HCL 06/02/ Hx Tablets 10mg 120ta si by Esteban 2014 - bs mouth Sorin, 06/06/ every 4 to DO, MPH 2016 6 hours as directed chronic pain patient Oxycodone HCL 02/14/ Hx Tablets 5mg 180ta si-2 by Esteban 2014 - bs mouth Sorin, 06/02/ every 4 to DO, MPH 2014 6 hours as directed chronic pain patient Oxycodone HCL 12/16/ Hx Capsules 5mg 150ca si-2 Esteban, 2013 - ps po q4-6h Sorin, 02/14/ ud DO, MPH 2014 chronic pain patient Chlorzoxazone 10/18/ Hx Tablets 500mg 90tab si by Esteban, 2013 - s mouth Sorin, 06/21/ three DO, MPH 2015 times a day chronic pain patient Lorzone 10/14/ Hx Tablets 375mg 90tab 1 po tid Orellana, 2013 - s Sorin, DO, MPH 2013 Medrol Dosepak 08/09/ Hx Tablets 4mg 21tab sig: ud Orellana, 2013 - s Sorin, 11/11/ DO, MPH 2013 Ketamine 10% Vicente 08/09/ Hx Cream 240un sig: apply Orellana, 2% Cyclo 2% Diclo 2013 - 1-2 gm to Sorin, 3% Rock 6% 01/12/ affected DO, MPH Tetracaine 2% 2014 area 3-4 times daily Oxycodone HCL 04/12/ Hx Tablets 5mg 120ta si po Orellana, 2013 - bs q4h ud Sorin, 12/16/ DO, MPH 2013 chronic pain patient Flexeril 04/07/ Hx Tablets 10mg 60tab si po Orellana, 2013 - s bid ud Sorin, 04/07/ DO, MPH 2013 chronic pain patient Cyclobenzaprine 04/07/ Hx Tablets 5mg 90tab 1 po tid Orellana, HCL 2013 - s Sorin, DO, MPH 2013 Opana ER (Crush 04/07/ Hx T12a 10mg 60uni si po Orellana, Resistant) 2013 - ts q12h ud Sorin, DO, MPH 2013 Opana ER (Crush 03/09/ Hx T12a 5mg 60uni take 1 po Orellana, Resistant) 2014 - ts q 12 hrs Sorin, 04/07/ ud chronic DO, MPH 2013 pain patient Analgesic Cream 01/05/ Hx Cream BP1 1unit sig: apply Orellana, (Jim) 2012 - s 1-2 grams Sorin, 01/12/ to the DO, MPH 2014 affected area 3-4 times daily Amrix 12/15/ Hx Caps ER 15mg 30cap si po Orellana, 2012 - 24HR s qpm ud Sorin, 04/07/ DO, MPH 2013 Zanaflex 12/09/ Hx Capsules 4mg 60cap si/2-1 Orellana, 2012 - s po bid Sorin, 12/15/ ud DO, MPH 2012 brand medically necessary chronic pain patient Opana 09/09/ Hx Tablets 5mg 120ta si po Orellana, 2012 - bs q4-6h ud Sorin, 03/09/ DO, MPH 2013 chronic pain patient Morphine Sulfate 08/11/ Hx Tablets 15mg 60tab si/2-1 Orellana, Ir 2012 - s po bid ud Sorin, 09/09/ DO, MPH 2012 chronic pain patient Morphine Sulfate 07/14/ Hx Tablets 15mg 60tab si/2-1 Orellana, 2012 - s po bid ud Sorin, 08/11/ DO, MPH 2012 chronic pain patient Tramadol HCL 07/14/ Hx Tablets 50mg 60tab si-2 Orellana, 2012 - s by mouth Sorin, 08/01/ every DO, MPH 2015 night at bedtime as directed Oxycontin 07/10/ Hx Tablets ER 10mg 30tab si po Orellana, 2012 - 12HR s q12h ud Sorin, 07/14/ DO, MPH 2012 chronic pain patient Oxycodone HCL 06/26/ Hx Tablets 5mg 45tab si po Orellana, 2012 - s q8h ud Sorin, 07/10/ DO, MPH 2012 chronic pain patient Tramadol / Hx Tablets 37.5-325m Unknown Hydrochloride/Fer 0000 - g taminophen 2012 Cyclobenzaprine / Hx Tablets 10mg 90tab si po Unknown HCL 0000 - s tid ud 2012 Allergy & Sinus 00/ Hx Tablets 25-10-650 Unknown Intense Strength 0000 - mg 2018 Amitriptyline HCL / Hx Tablets 10mg si by Unknown 0000 - mouth 11/10/ every 2014 night Pramipexole / Hx Tablets 0.25mg Unknown Dihydrochloride 0000 - 2014 Potassimin / Hx Tablets 75mg 1 daily Unknown - 2016 Gabapentin / Hx Capsules 100mg take 1 Unknown 0000 - capsules 11/20/ by mouth 2016 every 8 hours ud. chronic pain. Celebrex / Hx Capsules 200mg 60cap si-2 by Esteban, 0000 - s mouth Sorin, 03/05/ daily as DO, MPH 2018 directed chronic pain patient Fioricet / Hx Capsules 50-300-40 si by Unknown 0000 - mg mouth every to 2018 6 hours as needed as directed chronic pain patient Tolterodine / Hx Tablets 1mg one a day Unknown Tartrate - 2018 Amoxicillin/Clavu / Hx Tablets 875-125mg 1 by mouth Unknown lanate Potassium 0000 - twice a 03/05/ day for 10 2018 days Albuterol / Hx Aerosol 90mcg/Dos Unknown Inhalation 0000 - e 2018 Tumeric / Hx Unknown - 2018 Immunizations Description No Information Available Vital Signs Date Vital Result Comment 05/08/2018 12:59pm BP Systolic 128 mmHg BP Diastolic 82 mmHg Heart Rate 84 /min Respiratory Rate 20 /min Height 63 inches 5'3" Weight 172.00 lb Pain Level 9 Pain at this time. Pain Level With Medicine 9 on average with meds Pain Level Without Medicine 10 11/19 without meds BMI (Body Mass Index) 30.5 kg/m2 04/21/2018 9:04am BP Systolic 128 mmHg BP Diastolic 84 mmHg Heart Rate 80 /min Respiratory Rate 20 /min Height 63 inches 5'3" Weight 172.00 lb Pain Level 8 Pain at this time. Pain Level With Medicine 7 on average with meds Pain Level Without Medicine 10 11/19 without meds BMI (Body Mass Index) 30.5 kg/m2 04/06/2018 9:56am BP Systolic 144 mmHg BP Diastolic 86 mmHg Heart Rate 82 /min Respiratory Rate 20 /min Height 63 inches 5'3" Weight 173.00 lb Pain Level 8 Pain at this time. Pain Level With Medicine 7 on average with meds Pain Level Without Medicine 10 11/19 without meds BMI (Body Mass Index) 30.6 kg/m2 03/05/2018 2:38pm BP Systolic 126 mmHg BP Diastolic 78 mmHg Heart Rate 74 /min Respiratory Rate 20 /min Height 63 inches 5'3" Weight 173.00 lb Pain Level 6 Pain at this time. Pain Level With Medicine 5 on average with meds Pain Level Without Medicine 10 11/19 without meds BMI (Body Mass Index) 30.6 kg/m2 02/05/2018 9:46am BP Systolic 130 mmHg BP Diastolic 84 mmHg Heart Rate 82 /min Respiratory Rate 20 /min Height 63 inches 5'3" Weight 164.00 lb Pain Level 7 Pain at this time. Pain Level With Medicine 6 on average with meds Pain Level Without Medicine 10 11/19 without meds BMI (Body Mass Index) 29.0 kg/m2 01/19/2018 3:16pm BP Systolic 144 mmHg BP Diastolic 82 mmHg Heart Rate 86 /min Respiratory Rate 20 /min Height 63 inches 5'3" Weight 162.00 lb Pain Level 8 Pain at this time. Pain Level With Medicine 7 on average with meds Pain Level Without Medicine 10 11/19 without meds Pain Level After Procedure 6 BP Systolic Recheck 136 mmHg Pulse: 84 BP Diastolic Recheck 82 mmHg Pulse: 84 BMI (Body Mass Index) 28.7 kg/m2 01/13/2018 3:18pm BP Systolic 148 mmHg BP Diastolic 86 mmHg Heart Rate 84 /min Body Temperature 20.0 F Height 63 inches 5'3" Weight 162.00 lb Pain Level 7 Pain at this time. Pain Level With Medicine 7 on average with meds Pain Level Without Medicine 10 11/19 without meds Pain Level After Procedure 5 BP Systolic Recheck 136 mmHg Pulse: 80 BP Diastolic Recheck 80 mmHg Pulse: 80 BMI (Body Mass Index) 28.7 kg/m2 01/06/2018 9:13am BP Systolic 128 mmHg BP Diastolic 84 mmHg Heart Rate 80 /min Respiratory Rate 20 /min Height 63 inches 5'3" Weight 162.00 lb Pain Level 7 Pain at this time. Pain Level With Medicine 6 on average with meds Pain Level Without Medicine 10 11/19 without meds BMI (Body Mass Index) 28.7 kg/m2 12/03/2017 11:16am BP Systolic 128 mmHg BP Diastolic 72 mmHg Heart Rate 74 /min Respiratory Rate 20 /min Height 63 inches 5'3" Weight 161.00 lb Pain Level 8 Pain at this time. Pain Level With Medicine 7 on average with meds Pain Level Without Medicine 10 11/19 without meds BMI (Body Mass Index) 28.5 kg/m2 11/06/2017 9:39am BP Systolic 128 mmHg BP Diastolic 80 mmHg Heart Rate 76 /min Respiratory Rate 20 /min Height 63 inches 5'3" Weight 168.00 lb Pain Level 8 Pain at this time. Pain Level With Medicine 7 on average with meds Pain Level Without Medicine 11/19 without meds BMI (Body Mass Index) 29.8 kg/m2 10/23/2017 10:35am BP Systolic 140 mmHg BP Diastolic 86 mmHg Heart Rate 84 /min Respiratory Rate 20 /min Height 63 inches 5'3" Weight 167.00 lb Pain Level 8 Pain at this time. Pain Level With Medicine 7 on average with meds Pain Level Without Medicine 11/19 without meds BMI (Body Mass Index) 29.6 kg/m2 09/23/2017 11:14am BP Systolic 144 mmHg BP Diastolic 86 mmHg Heart Rate 82 /min Respiratory Rate 20 /min Height 63 inches 5'3" Weight 167.00 lb Pain Level 8 Pain at this time. Pain Level With Medicine 7 on average with meds Pain Level Without Medicine 11/19 without meds BMI (Body Mass Index) 29.6 kg/m2 08/22/2017 2:08pm BP Systolic 134 mmHg BP Diastolic 84 mmHg Heart Rate 86 /min Respiratory Rate 20 /min Height 63 inches 5'3" Weight 175.00 lb Pain Level 7 Pain at this time. Pain Level With Medicine 6 on average with meds Pain Level Without Medicine 11/19 without meds BMI (Body Mass Index) 31.0 kg/m2 07/23/2017 10:50am BP Systolic 148 mmHg BP Diastolic 86 mmHg Heart Rate 84 /min Respiratory Rate 20 /min Height 63 inches 5'3" Weight 182.00 lb Pain Level 8 Pain at this time. Pain Level With Medicine 7 on average with meds Pain Level Without Medicine 10 11/19 without meds BMI (Body Mass Index) 32.2 kg/m2 06/23/2017 10:42am BP Systolic 144 mmHg BP Diastolic 96 mmHg Heart Rate 88 /min Respiratory Rate 20 /min Height 63 inches 5'3" Weight 176.00 lb Pain Level 8 Pain at this time. Pain Level With Medicine 7 on average with meds Pain Level Without Medicine 10 11/19 without meds Pain Level After Procedure 6 BP Systolic Recheck 140 mmHg Pulse: 112 BP Diastolic Recheck 86 mmHg Pulse: 112 BMI (Body Mass Index) 31.2 kg/m2 05/23/2017 11:08am BP Systolic 136 mmHg BP Diastolic 82 mmHg Heart Rate 80 /min Respiratory Rate 20 /min Height 63 inches 5'3" Weight 172.00 lb Pain Level 7 Pain at this time. Pain Level With Medicine 6 on average with meds Pain Level Without Medicine 10 11/19 without meds Pain Level After Procedure 3 BP Systolic Recheck 144 mmHg Pulse: 86 BP Diastolic Recheck 92 mmHg Pulse: 86 BMI (Body Mass Index) 30.5 kg/m2 05/06/2017 11:10am BP Systolic 122 mmHg BP Diastolic 82 mmHg Heart Rate 80 /min Respiratory Rate 20 /min Height 63 inches 5'3" Weight 172.00 lb Pain Level 7 Pain at this time. Pain Level With Medicine 7 on average with meds Pain Level Without Medicine 10 11/19 without meds Pain Level After Procedure 3 BP Systolic Recheck 124 mmHg Pulse: 78 BP Diastolic Recheck 76 mmHg Pulse: 78 BMI (Body Mass Index) 30.5 kg/m2 04/23/2017 3:14pm BP Systolic 128 mmHg BP Diastolic 84 mmHg Heart Rate 78 /min Respiratory Rate 20 /min Height 63 inches 5'3" Weight 172.00 lb Pain Level 8 Pain at this time. Pain Level With Medicine 7 on average with meds Pain Level Without Medicine 10 11/19 without meds BMI (Body Mass Index) 30.5 kg/m2 03/25/2017 10:22am BP Systolic 140 mmHg BP Diastolic 82 mmHg Heart Rate 84 /min Respiratory Rate 20 /min Height 63 inches 5'3" Weight 172.00 lb Pain Level 8 Pain at this time. Pain Level With Medicine 7 on average with meds Pain Level Without Medicine 10 11/19 without meds Pain Level After Procedure 6 BP Systolic Recheck 144 mmHg Pulse: 96 BP Diastolic Recheck 88 mmHg Pulse: 96 BMI (Body Mass Index) 30.5 kg/m2 02/18/2017 10:36am BP Systolic 130 mmHg BP Diastolic 84 mmHg Heart Rate 82 /min Respiratory Rate 20 /min Height 63 inches 5'3" Weight 175.00 lb Pain Level 8 Pain at this time. Pain Level With Medicine 7 on average with meds Pain Level Without Medicine 10 11/19 without meds BMI (Body Mass Index) 31.0 kg/m2 01/22/2017 2:03pm BP Systolic 128 mmHg BP Diastolic 74 mmHg Heart Rate 72 /min Respiratory Rate 20 /min Height 63 inches 5'3" Weight 182.00 lb Pain Level 5 Pain at this time. Pain Level With Medicine 4 on average with meds Pain Level Without Medicine 10 11/19 without meds BMI (Body Mass Index) 32.2 kg/m2 12/23/2016 2:11pm BP Systolic 128 mmHg BP Diastolic 86 mmHg Heart Rate 84 /min Respiratory Rate 20 /min Height 63 inches 5'3" Weight 177.00 lb Pain Level 8 Pain at this time. Pain Level With Medicine 7 on average with meds Pain Level Without Medicine 10 11/19 without meds Pain Level After Procedure 5 BP Systolic Recheck 128 mmHg Pulse: 80 BP Diastolic Recheck 72 mmHg Pulse: 80 BMI (Body Mass Index) 31.4 kg/m2 11/20/2016 4:04pm BP Systolic 132 mmHg BP Diastolic 84 mmHg Heart Rate 76 /min Respiratory Rate 20 /min Height 63 inches 5'3" Weight 171.00 lb Pain Level 6 Pain at this time. Pain Level With Medicine 5 on average with meds Pain Level Without Medicine 10 11/19 without meds BMI (Body Mass Index) 30.3 kg/m2 10/24/2016 10:37am BP Systolic 136 mmHg BP Diastolic 84 mmHg Heart Rate 80 /min Respiratory Rate 20 /min Height 63 inches 5'3" Weight 178.00 lb Pain Level 7 Pain at this time. Pain Level With Medicine 7 on average with meds Pain Level Without Medicine 10 11/19 without meds Pain Level After Procedure 3 BP Systolic Recheck 140 mmHg Pulse: 84 BP Diastolic Recheck 80 mmHg Pulse: 84 BMI (Body Mass Index) 31.5 kg/m2 09/24/2016 10:00am BP Systolic 136 mmHg BP Diastolic 80 mmHg Heart Rate 74 /min Respiratory Rate 20 /min Height 63 inches 5'3" Weight 183.00 lb Pain Level 8 Pain at this time. Pain Level With Medicine 7 on average with meds Pain Level Without Medicine 10 11/19 without meds Pain Level After Procedure 4 BP Systolic Recheck 146 mmHg Pulse: 88 BP Diastolic Recheck 90 mmHg Pulse: 88 BMI (Body Mass Index) 32.4 kg/m2 09/10/2016 10:36am BP Systolic 138 mmHg BP Diastolic 84 mmHg Heart Rate 80 /min Respiratory Rate 20 /min Height 63 inches 5'3" Weight 181.00 lb Pain Level 8 Pain at this time. Pain Level With Medicine 5 on average with meds Pain Level Without Medicine 11/19 without meds BMI (Body Mass Index) 32.1 kg/m2 08/05/2016 10:41am BP Systolic 130 mmHg BP Diastolic 72 mmHg Heart Rate 76 /min Respiratory Rate 18 /min Height 63 inches 5'3" Weight 181.00 lb Pain Level 5 Pain at this time. Pain Level With Medicine 4 on average with meds Pain Level Without Medicine 11/19 without meds BMI (Body Mass Index) 32.1 kg/m2 07/05/2016 10:42am BP Systolic 126 mmHg BP Diastolic 74 mmHg Heart Rate 72 /min Respiratory Rate 20 /min Height 63 inches 5'3" Weight 184.00 lb Pain Level 6 Pain at this time. Pain Level With Medicine 5 on average with meds Pain Level Without Medicine 11/19 without meds BMI (Body Mass Index) 32.6 kg/m2 06/06/2016 10:51am BP Systolic 128 mmHg BP Diastolic 80 mmHg Heart Rate 76 /min Respiratory Rate 20 /min Height 63 inches 5'3" Weight 184.00 lb Pain Level 5 Pain at this time. Pain Level With Medicine 5 on average with meds Pain Level Without Medicine 10 11/19 without meds BMI (Body Mass Index) 32.6 kg/m2 05/08/2016 10:28am BP Systolic 160 mmHg BP Diastolic 94 mmHg Heart Rate 112 /min Respiratory Rate 20 /min Height 63 inches 5'3" Weight 184.00 lb Pain Level 8 Pain at this time. Pain Level With Medicine 6 on average with meds Pain Level Without Medicine 10 11/19 without meds BMI (Body Mass Index) 32.6 kg/m2 04/08/2016 2:38pm BP Systolic 128 mmHg BP Diastolic 80 mmHg Heart Rate 76 /min Respiratory Rate 20 /min Height 63 inches 5'3" Weight 189.00 lb Pain Level 7 Pain at this time. Pain Level With Medicine 7 on average with meds Pain Level Without Medicine 10 10/10 without meds BMI (Body Mass Index) 33.5 kg/m2 03/08/2016 10:01am BP Systolic 128 mmHg BP Diastolic 80 mmHg Heart Rate 76 /min Respiratory Rate 16 /min Height 63 inches 5'3" Weight 179.00 lb Pain Level 9 9/10, Pain at this time. Pain Level With Medicine 6 6/10, on average with meds Pain Level Without Medicine 10 10/10 without meds Pain Level After Procedure 6 BP Systolic Recheck 132 mmHg Pulse: 88 BP Diastolic Recheck 84 mmHg Pulse: 88 BMI (Body Mass Index) 31.7 kg/m2 02/08/2016 10:11am BP Systolic 136 mmHg BP Diastolic 76 mmHg Heart Rate 80 /min Respiratory Rate 16 /min Height 63 inches 5'3" Weight 180.00 lb Pain Level 8 8/10, Pain at this time. Pain Level With Medicine 8 8/10, on average with meds Pain Level Without Medicine 10 1010 without meds BMI (Body Mass Index) 31.9 kg/m2 01/09/2016 10:06am BP Systolic 130 mmHg BP Diastolic 80 mmHg Heart Rate 82 /min Respiratory Rate 18 /min Height 63 inches 5'3" Weight 190.00 lb Pain Level 7 7/10, Pain at this time. Pain Level With Medicine 7 7/10, on average with meds Pain Level Without Medicine 10 10 without meds BMI (Body Mass Index) 33.7 kg/m2 12/07/2015 9:50am BP Systolic 134 mmHg BP Diastolic 80 mmHg Heart Rate 76 /min Respiratory Rate 18 /min Height 63 inches 5'3" Weight 184.00 lb Pain Level 8 8/10, Pain at this time. Pain Level With Medicine 8 8/10, on average with meds Pain Level Without Medicine 10 10 without meds BMI (Body Mass Index) 32.6 kg/m2 11/09/2015 10:42am BP Systolic 130 mmHg BP Diastolic 78 mmHg Heart Rate 82 /min Respiratory Rate 18 /min Height 63 inches 5'3" Weight 184.00 lb Pain Level 7 Pain at this time. Pain Level With Medicine 6 on average with meds Pain Level Without Medicine 10 10 without meds BMI (Body Mass Index) 32.6 kg/m2 10/23/2015 10:42am BP Systolic 128 mmHg BP Diastolic 76 mmHg Heart Rate 74 /min Respiratory Rate 18 /min Height 63 inches 5'3" Weight 184.00 lb Pain Level 7 Pain at this time. Pain Level With Medicine 6 on average with meds Pain Level Without Medicine 10 11/19 without meds Pain Level After Procedure 6 BP Systolic Recheck 122 mmHg Pulse:76 BP Diastolic Recheck 74 mmHg Pulse:76 BMI (Body Mass Index) 32.6 kg/m2 10/09/2015 10:05am BP Systolic 128 mmHg BP Diastolic 80 mmHg Heart Rate 76 /min Respiratory Rate 18 /min Height 63 inches 5'3" Weight 184.00 lb Pain Level 9 9/10, Pain at this time. Pain Level With Medicine 7 7/10, on average with meds Pain Level Without Medicine 10 1010 without meds BMI (Body Mass Index) 32.6 kg/m2 09/25/2015 2:23pm BP Systolic 134 mmHg BP Diastolic 80 mmHg Heart Rate 76 /min Respiratory Rate 18 /min Height 63 inches 5'3" Weight 186.00 lb Pain Level 9 9/10, Pain at this time. Pain Level With Medicine 7 7/10, on average with meds Pain Level Without Medicine 10 11/19 without meds BMI (Body Mass Index) 32.9 kg/m2 09/14/2015 8:23am BP Systolic 142 mmHg BP Diastolic 80 mmHg Heart Rate 82 /min Respiratory Rate 18 /min Height 63 inches 5'3" Weight 186.00 lb Pain Level 8 Pain at this time. Pain Level With Medicine 7 on average with meds Pain Level Without Medicine 10 11/19 without meds BMI (Body Mass Index) 32.9 kg/m2 08/25/2015 2:40pm BP Systolic 124 mmHg BP Diastolic 76 mmHg Heart Rate 76 /min Respiratory Rate 18 /min Height 63 inches 5'3" Weight 184.00 lb Pain Level 4 4/10, Pain at this time. Pain Level With Medicine 4 4/10, on average with meds Pain Level Without Medicine 10 1010 without meds BMI (Body Mass Index) 32.6 kg/m2 08/11/2015 2:22pm BP Systolic 128 mmHg BP Diastolic 80 mmHg Heart Rate 76 /min Respiratory Rate 18 /min Height 63 inches 5'3" Weight 184.00 lb Pain Level 8 8/10, Pain at this time. Pain Level With Medicine 5 5/10, on average with meds Pain Level Without Medicine 10 10/10 without meds BMI (Body Mass Index) 32.6 kg/m2 07/13/2015 10:25am BP Systolic 132 mmHg BP Diastolic 80 mmHg Heart Rate 78 /min Respiratory Rate 18 /min Height 63 inches 5'3" Weight 189.00 lb Pain Level 5 5/10, Pain at this time. Pain Level With Medicine 5 5/10, on average with meds Pain Level Without Medicine 10 10/10 without meds BMI (Body Mass Index) 33.5 kg/m2 06/15/2015 9:08am BP Systolic 140 mmHg BP Diastolic 84 mmHg Heart Rate 82 /min Respiratory Rate 18 /min Height 63 inches 5'3" Weight 189.00 lb Pain Level 8 Pain at this time. Pain Level With Medicine 7 on average with meds Pain Level Without Medicine 10 10 without meds Pain Level After Procedure 4 BP Systolic Recheck 126 mmHg Pulse: 80 BP Diastolic Recheck 74 mmHg Pulse: 80 BMI (Body Mass Index) 33.5 kg/m2 05/15/2015 10:19am BP Systolic 132 mmHg BP Diastolic 76 mmHg Heart Rate 76 /min Respiratory Rate 18 /min Height 63 inches 5'3" Weight 194.00 lb Pain Level 8 8/10, Pain at this time. Pain Level With Medicine 5 5/10, on average with meds Pain Level Without Medicine 10 10/10 without meds Pain Level After Procedure 5 BP Systolic Recheck 124 mmHg Pulse:82 BP Diastolic Recheck 72 mmHg Pulse:82 BMI (Body Mass Index) 34.4 kg/m2 04/13/2015 9:07am BP Systolic 132 mmHg BP Diastolic 80 mmHg Heart Rate 76 /min Respiratory Rate 18 /min Height 63 inches 5'3" Weight 194.00 lb Pain Level 7 7/10, Pain at this time. Pain Level With Medicine 7 7/10, on average with meds Pain Level Without Medicine 10 10/10 without meds BMI (Body Mass Index) 34.4 kg/m2 03/16/2015 11:19am BP Systolic 126 mmHg BP Diastolic 76 mmHg Respiratory Rate 18 /min Height 63 inches 5'3" Weight 194.00 lb Pain Level 5 5/10, Pain at this time. Pain Level With Medicine 5 5/10, on average with meds Pain Level Without Medicine 10 10/10 without meds BMI (Body Mass Index) 34.4 kg/m2 02/23/2015 3:38pm BP Systolic 130 mmHg BP Diastolic 78 mmHg Heart Rate 80 /min Respiratory Rate 20 /min Height 63 inches 5'3" Weight 194.00 lb Pain Level 7 Pain at this time. Pain Level With Medicine 6 on average with meds Pain Level Without Medicine 10 10/10 without meds Pain Level After Procedure 5 BP Systolic Recheck 128 mmHg Pulse: 88 BP Diastolic Recheck 82 mmHg Pulse: 88 BMI (Body Mass Index) 34.4 kg/m2 02/13/2015 10:06am BP Systolic 118 mmHg BP Diastolic 70 mmHg Heart Rate 74 /min Respiratory Rate 20 /min Height 63 inches 5'3" Weight 190.00 lb Pain Level 7 7/10, Pain at this time. Pain Level With Medicine 6 6/10, on average with meds Pain Level Without Medicine 10 10 without meds Pain Level After Procedure 5 BP Systolic Recheck 150 mmHg Pulse: 112 BP Diastolic Recheck 88 mmHg Pulse: 112 BMI (Body Mass Index) 33.7 kg/m2 01/25/2015 3:53pm BP Systolic 120 mmHg BP Diastolic 70 mmHg Heart Rate 74 /min Respiratory Rate 20 /min Height 63 inches 5'3" Weight 190.00 lb Pain Level 9 Pain at this time. Pain Level With Medicine 8 on average with meds Pain Level Without Medicine 10 10/10 without meds Pain Level After Procedure 4 BP Systolic Recheck 126 mmHg 80 BP Diastolic Recheck 78 mmHg 80 BMI (Body Mass Index) 33.7 kg/m2 01/12/2015 9:34am BP Systolic 114 mmHg BP Diastolic 76 mmHg Heart Rate 74 /min Respiratory Rate 18 /min Height 63 inches 5'3" Weight 179.00 lb Pain Level 7 7/10, Pain at this time. Pain Level With Medicine 5 5/10, on average with meds Pain Level Without Medicine 10 10/10 without meds BMI (Body Mass Index) 31.7 kg/m2 2014 9:45am BP Systolic 126 mmHg BP Diastolic 78 mmHg Heart Rate 84 /min Respiratory Rate 20 /min Height 63 inches 5'3" Weight 180.00 lb Pain Level 7 7/10, Pain at this time. Pain Level With Medicine 7 7/10, on average with meds Pain Level Without Medicine 10 10/10 without meds BMI (Body Mass Index) 31.9 kg/m2 11/10/2014 3:20pm BP Systolic 128 mmHg BP Diastolic 78 mmHg Heart Rate 74 /min Respiratory Rate 20 /min Height 63 inches 5'3" Weight 180.00 lb Pain Level 10 1010, Pain at this time. Pain Level With Medicine 5 5, on average with meds Pain Level Without Medicine 10 11/19 without meds Pain Level After Procedure 7 BP Systolic Recheck 136 mmHg Pulse:84 BP Diastolic Recheck 82 mmHg Pulse:84 BMI (Body Mass Index) 31.9 kg/m2 10/13/2014 9:50am BP Systolic 128 mmHg BP Diastolic 80 mmHg Heart Rate 84 /min Respiratory Rate 20 /min Height 63 inches 5'3" Weight 182.00 lb Pain Level 7 7, Pain at this time. Pain Level With Medicine 6 07/20, on average with meds Pain Level Without Medicine 10 11/19 without meds BMI (Body Mass Index) 32.2 kg/m2 09/15/2014 9:53am BP Systolic 126 mmHg BP Diastolic 72 mmHg Heart Rate 74 /min Respiratory Rate 18 /min Height 63 inches 5'3" Weight 182.00 lb Pain Level 6 610, Pain at this time. Pain Level With Medicine 6 10, on average with meds Pain Level Without Medicine 10 11/19 without meds BMI (Body Mass Index) 32.2 kg/m2 08/18/2014 9:36am BP Systolic 126 mmHg BP Diastolic 78 mmHg Heart Rate 74 /min Respiratory Rate 20 /min Height 63 inches 5'3" Weight 182.00 lb Pain Level 9 Pain at this time. Pain Level With Medicine 7 on average with meds Pain Level Without Medicine 10 11/19 without meds Pain Level After Procedure 7 BP Systolic Recheck 124 mmHg Pulse:80 BP Diastolic Recheck 76 mmHg Pulse:80 BMI (Body Mass Index) 32.2 kg/m2 08/01/2014 10:02am BP Systolic 122 mmHg BP Diastolic 74 mmHg Heart Rate 76 /min Respiratory Rate 18 /min Height 63 inches 5'3" Weight 189.00 lb Pain Level 8 810, Pain at this time. Pain Level With Medicine 7 08/19, on average with meds Pain Level Without Medicine 10 11/19 without meds BMI (Body Mass Index) 33.5 kg/m2 07/18/2014 3:15pm BP Systolic 138 mmHg BP Diastolic 82 mmHg Heart Rate 84 /min Respiratory Rate 20 /min Height 63 inches 5'3" Weight 189.00 lb Pain Level 8 Pain at this time. Pain Level With Medicine 7 on average with meds Pain Level Without Medicine 10 11/19 without meds BMI (Body Mass Index) 33.5 kg/m2 06/21/2014 10:20am BP Systolic 136 mmHg BP Diastolic 84 mmHg Heart Rate 80 /min Respiratory Rate 20 /min Height 63 inches 5'3" Weight 188.00 lb Pain Level 8 Pain at this time. Pain Level With Medicine 7 on average with meds Pain Level Without Medicine 10 11/19 without meds Pain Level After Procedure 6 BP Systolic Recheck 132 mmHg Pulse: 94 BP Diastolic Recheck 88 mmHg Pulse: 94 BMI (Body Mass Index) 33.3 kg/m2 06/02/2014 2:05pm BP Systolic 130 mmHg BP Diastolic 78 mmHg Heart Rate 76 /min Respiratory Rate 18 /min Height 63 inches 5'3" Weight 190.00 lb Pain Level 9 10/20, Pain at this time. Pain Level With Medicine 5 06/19, on average with meds Pain Level Without Medicine 10 11/19 without meds BMI (Body Mass Index) 33.7 kg/m2 05/13/2014 9:09am BP Systolic 142 mmHg BP Diastolic 86 mmHg Heart Rate 84 /min Respiratory Rate 20 /min Height 63 inches 5'3" Weight 192.00 lb Pain Level 5 Pain at this time. Pain Level With Medicine 4 on average with meds Pain Level Without Medicine 10 11/19 without meds BMI (Body Mass Index) 34.0 kg/m2 04/12/2014 9:06am BP Systolic 138 mmHg BP Diastolic 86 mmHg Heart Rate 110 /min Respiratory Rate 22 /min Height 63 inches 5'3" Weight 185.00 lb O2 % BldC Oximetry 100 % Pain Level 9 Pain at this time. Pain Level With Medicine 7 on average with meds Pain Level Without Medicine 10 11/19 without meds BMI (Body Mass Index) 32.8 kg/m2 03/17/2014 3:12pm BP Systolic 124 mmHg BP Diastolic 78 mmHg Heart Rate 76 /min Respiratory Rate 18 /min Height 63 inches 5'3" Weight 188.00 lb Pain Level 5-6 Pain at this time. Pain Level With Medicine 4 on average with meds Pain Level Without Medicine 10 11/19 without meds BMI (Body Mass Index) 33.3 kg/m2 02/14/2014 3:12pm BP Systolic 126 mmHg BP Diastolic 72 mmHg Heart Rate 74 /min Respiratory Rate 18 /min Height 63 inches 5'3" Weight 186.00 lb Pain Level 6 6/10, Pain at this time. Pain Level With Medicine 5 06/19, on average with meds Pain Level Without Medicine 10 11/19 without meds BMI (Body Mass Index) 32.9 kg/m2 01/14/2014 2:20pm BP Systolic 120 mmHg BP Diastolic 76 mmHg Heart Rate 74 /min Respiratory Rate 18 /min Height 63 inches 5'3" Weight 186.00 lb Pain Level 5 Pain at this time. Pain Level With Medicine 4 on average with meds Pain Level Without Medicine 11/19 without meds BMI (Body Mass Index) 32.9 kg/m2 12/16/2013 2:46pm BP Systolic 126 mmHg BP Diastolic 76 mmHg Heart Rate 74 /min Respiratory Rate 18 /min Height 63 inches 5'3" Weight 182.00 lb Pain Level 8 810, Pain at this time. Pain Level With Medicine 7 08/19, on average with meds Pain Level Without Medicine 10 11/19 without meds BMI (Body Mass Index) 32.2 kg/m2 11/11/2013 10:43am BP Systolic 124 mmHg BP Diastolic 76 mmHg Heart Rate 74 /min Respiratory Rate 18 /min Height 63 inches 5'3" Weight 180.00 lb Pain Level 7-8 Pain at this time. Pain Level With Medicine 6 on average with meds Pain Level Without Medicine 10 11/19 without meds BMI (Body Mass Index) 31.9 kg/m2 10/14/2013 1:35pm BP Systolic 128 mmHg BP Diastolic 72 mmHg Heart Rate 80 /min Respiratory Rate 18 /min Height 63 inches 5'3" Weight 183.00 lb Pain Level 8 8/10, Pain at this time. Pain Level With Medicine 4 410, on average with meds Pain Level Without Medicine 10 11/19 without meds BMI (Body Mass Index) 32.4 kg/m2 09/07/2013 3:17pm BP Systolic 128 mmHg BP Diastolic 70 mmHg Heart Rate 84 /min Respiratory Rate 18 /min Height 63 inches 5'3" Weight 189.00 lb Pain Level 9 10, Pain at this time. Pain Level With Medicine 6 6/10, on average with meds Pain Level Without Medicine 10 10 without meds BMI (Body Mass Index) 33.5 kg/m2 08/09/2013 3:24pm BP Systolic 126 mmHg BP Diastolic 78 mmHg Heart Rate 76 /min Respiratory Rate 18 /min Height 63 inches 5'3" Pain Level 8 8/10, Pain at this time. Pain Level With Medicine 4 4/10, on average with meds Pain Level Without Medicine 10 10 without meds 07/08/2013 4:18pm BP Systolic 124 mmHg BP Diastolic 78 mmHg Heart Rate 78 /min Respiratory Rate 20 /min Height 63 inches 5'3" Pain Level 5 5/10, Pain at this time. Pain Level With Medicine 3 310, on average with meds Pain Level Without Medicine 9 10/20 without meds 06/10/2013 2:43pm BP Systolic 132 mmHg BP Diastolic 78 mmHg Heart Rate 84 /min Respiratory Rate 18 /min Height 63 inches 5'3" Weight 180.00 lb Pain Level 8 8/10, Pain at this time. Pain Level With Medicine 8 8/10, on average with meds Pain Level Without Medicine 10 11/19 without meds BMI (Body Mass Index) 31.9 kg/m2 05/13/2013 9:51am BP Systolic 122 mmHg BP Diastolic 78 mmHg Heart Rate 74 /min Respiratory Rate 18 /min Height 63 inches 5'3" Weight 181.00 lb Pain Level 6-7 6-/10, Pain at this time. Pain Level With Medicine 5 510, on average with meds Pain Level Without Medicine 10 11/19 without meds BMI (Body Mass Index) 32.1 kg/m2 04/12/2013 2:30pm BP Systolic 128 mmHg BP Diastolic 76 mmHg Heart Rate 74 /min Respiratory Rate 18 /min Height 63 inches 5'3" Weight 178.00 lb Pain Level 8-9 8-9/10, Pain at this time. Pain Level With Medicine 7 7/10, on average with meds Pain Level Without Medicine 10 10 without meds BMI (Body Mass Index) 31.5 kg/m2 04/07/2013 3:37pm BP Systolic 122 mmHg BP Diastolic 78 mmHg Heart Rate 76 /min Respiratory Rate 18 /min Height 63 inches 5'3" Weight 176.00 lb Pain Level 7 Pain Level With Medicine 6 Pain Level Without Medicine 10 BMI (Body Mass Index) 31.2 kg/m2 03/08/2013 11:04am BP Systolic 118 mmHg BP Diastolic 72 mmHg Heart Rate 74 /min Respiratory Rate 18 /min Height 63 inches 5'3" Weight 176.00 lb Pain Level 7-8 7-8/10, Pain at this time. Pain Level With Medicine 4-5 4-5/10, on average with meds Pain Level Without Medicine 10 1010 without meds BMI (Body Mass Index) 31.2 kg/m2 02/05/2013 9:20am BP Systolic 128 mmHg BP Diastolic 84 mmHg Heart Rate 76 /min Respiratory Rate 18 /min Height 63 inches 5'3" Weight 178.00 lb Pain Level 8 8/10, Pain at this time. Pain Level With Medicine 7 7/10, on average with meds Pain Level Without Medicine 10 11/19 without meds Pain Level After Procedure 6 BP Systolic Recheck 122 mmHg Pulse:76 BP Diastolic Recheck 80 mmHg Pulse:76 BMI (Body Mass Index) 31.5 kg/m2 01/04/2013 9:53am BP Systolic 122 mmHg BP Diastolic 74 mmHg Heart Rate 72 /min Respiratory Rate 18 /min Height 63 inches 5'3" Weight 179.00 lb Pain Level 8 8/10, Pain at this time. Pain Level With Medicine 8 8/10, on average with meds Pain Level Without Medicine 10 1010 without meds BMI (Body Mass Index) 31.7 kg/m2 2012 9:29am BP Systolic 126 mmHg BP Diastolic 78 mmHg Heart Rate 84 /min Respiratory Rate 18 /min Height 63 inches 5'3" Weight 181.00 lb Pain Level 9 9/10, Pain at this time. Pain Level With Medicine 6 6/10, on average with meds Pain Level Without Medicine 10 10/10 without meds Pain Level After Procedure 7 BP Systolic Recheck 122 mmHg Pulse:80 BP Diastolic Recheck 76 mmHg Pulse:80 BMI (Body Mass Index) 32.1 kg/m2 12/09/2012 10:29am BP Systolic 120 mmHg BP Diastolic 76 mmHg Heart Rate 84 /min Respiratory Rate 18 /min Height 63 inches 5'3" Weight 181.00 lb Pain Level 8-9 8-9/10, Pain at this time. Pain Level With Medicine 8 8, on average with meds Pain Level Without Medicine 10 11/19 without meds BMI (Body Mass Index) 32.1 kg/m2 11/03/2012 3:38pm BP Systolic 118 mmHg BP Diastolic 74 mmHg Heart Rate 76 /min Respiratory Rate 18 /min Height 63 inches 5'3" Weight 182.00 lb Pain Level 5-6 5-10, Pain at this time. Pain Level With Medicine 4 05/20, on average with meds Pain Level Without Medicine 10 11/19 without meds BMI (Body Mass Index) 32.2 kg/m2 10/13/2012 3:33pm BP Systolic 118 mmHg BP Diastolic 60 mmHg Heart Rate 72 /min Respiratory Rate 18 /min Height 63 inches 5'3" Weight 173.00 lb Pain Level 7 08/19, Pain at this time. Pain Level With Medicine 3 04/19, on average with meds Pain Level Without Medicine 10 11/19 without meds BMI (Body Mass Index) 30.6 kg/m2 09/24/2012 2:45pm BP Systolic 118 mmHg BP Diastolic 70 mmHg Heart Rate 64 /min Respiratory Rate 18 /min Height 63 inches 5'3" Weight 175.00 lb Pain Level 3 04/19, Pain at this time. Pain Level With Medicine 4 05/20, on average with meds Pain Level Without Medicine 10 11/19 without meds BMI (Body Mass Index) 31.0 kg/m2 09/09/2012 3:18pm BP Systolic 130 mmHg BP Diastolic 68 mmHg Heart Rate 76 /min Respiratory Rate 18 /min Height 63 inches 5'3" Weight 169.00 lb Pain Level 8 09/19, Pain at this time. Pain Level With Medicine 7 08/19, on average with meds Pain Level Without Medicine 10 11/19 without meds BMI (Body Mass Index) 29.9 kg/m2 08/11/2012 2:49pm BP Systolic 134 mmHg BP Diastolic 82 mmHg Heart Rate 84 /min Respiratory Rate 18 /min Height 63 inches 5'3" Weight 168.00 lb Pain Level 4 410, Pain at this time. Pain Level With Medicine 3 310, on average with meds Pain Level Without Medicine 10 11/19 without meds BMI (Body Mass Index) 29.8 kg/m2 07/14/2012 4:19pm BP Systolic 130 mmHg BP Diastolic 80 mmHg Heart Rate 80 /min Respiratory Rate 18 /min Height 63 inches 5'3" Weight 168.00 lb Pain Level 9 9/10, Pain at this time. Pain Level Without Medicine 9 9/10 without meds BMI (Body Mass Index) 29.8 kg/m2 07/10/2012 2:59pm BP Systolic 118 mmHg BP Diastolic 80 mmHg Heart Rate 84 /min Respiratory Rate 18 /min Height 63 inches 5'3" Weight 168.00 lb Pain Level 7 7/10, Pain at this time. Pain Level With Medicine 4 4/10, on average with meds Pain Level Without Medicine 10 10/10 without meds BMI (Body Mass Index) 29.8 kg/m2 06/26/2012 9:16am BP Systolic 116 mmHg BP Diastolic 68 mmHg Heart Rate 84 /min Respiratory Rate 18 /min Height 63 inches 5'3" Weight 158.00 lb Pain Level 3 3/10, Pain at this time. Pain Level With Medicine 3 3/10, on average with meds Pain Level Without Medicine 10 11/19 without meds BMI (Body Mass Index) 28.0 kg/m2 Results Description No Information Available Procedures Date Code Description Status 04/06/2018 35602 Omt 3-4 Body Regions Completed 04/06/2018 83109 Therapeutic, Prophylactic Or Diagnostic Injection Subq/Im Completed 04/06/2018 39093 Brief Emotional/Behav Assessment W/ Scoring Doc Per Completed Standard Inst 04/06/2018 94893 Test Autonomic Nervous System, Sudomotor Completed 04/06/2018 99970 Test Autonomic Nervous System, Cardiovagal Innervation Completed 03/05/2018 39640 Therapeutic, Prophylactic Or Diagnostic Injection Subq/Im Completed 02/05/2018 15659 Therapeutic, Prophylactic Or Diagnostic Injection Subq/Im Completed 01/19/2018 Arthrocentesis/Aspiration/Inj Of Major Joint Or Bursa W/ Completed Ultra 01/19/201885183 Inject Tendon/Ligament Completed 01/19/201857930 Inject Tendon/Ligament Completed 01/13/201881460 Arthrocentesis Aspiration Inj, Small Joint/Bursa W US Completed Guidance 01/06/2018 69340 Therapeutic, Prophylactic Or Diagnostic Injection Subq/Im Completed 12/03/2017 09399 Omt 3-4 Body Regions Completed 12/03/2017 52638 Therapeutic, Prophylactic Or Diagnostic Injection Subq/Im Completed 10/23/2017 97243 Therapeutic, Prophylactic Or Diagnostic Injection Subq/Im Completed 09/23/2017 24239 Therapeutic, Prophylactic Or Diagnostic Injection Subq/Im Completed 09/23/201716587 Arthrocentesis/Aspiration/Inj Of Major Joint Or Bursa W/ Completed Ultra 08/22/2017 08386 Therapeutic, Prophylactic Or Diagnostic Injection Subq/Im Completed 07/23/2017 37649 Omt 1-2 Body Regions Completed 07/23/2017 23563 Therapeutic, Prophylactic Or Diagnostic Injection Subq/Im Completed 06/23/2017 74106 Therapeutic, Prophylactic Or Diagnostic Injection Subq/Im Completed 06/23/2017 49168 U/S Guidance For Needle Placement Completed 06/23/201759921 Inject Tendon/Ligament Completed 06/23/201776150 Inject Tendon/Ligament Completed 05/23/201753189 Arthrocentesis/Aspiration/Inj Of Major Joint Or Bursa W/ Completed Ultra 05/06/2017 73749 Therapeutic, Prophylactic Or Diagnostic Injection Subq/Im Completed 05/06/2017 79187 Inject Tendon/Ligament Completed 03/25/201784187 Arthrocentesis/Aspiration/Inj Of Major Joint Or Bursa W/ Completed Ultra 03/25/2017 27181 Therapeutic, Prophylactic Or Diagnostic Injection Subq/Im Completed 01/22/2017 62763 Omt 3-4 Body Regions Completed 01/22/2017 97952 Therapeutic, Prophylactic Or Diagnostic Injection Subq/Im Completed 12/23/2016 52994 Therapeutic, Prophylactic Or Diagnostic Injection Subq/Im Completed 12/23/201663893 Arthrocentesis/Aspiration/Inj Of Major Joint Or Bursa W/ Completed Ultra 12/23/201698028 Arthrocentesis/Aspiration/Inj Of Major Joint Or Bursa W/ Completed Ultra 12/23/201642672 Inject Tendon/Ligament Completed 12/23/201625917 Inject Tendon/Ligament Completed 12/23/201670576 Inject Tendon/Ligament Completed 12/23/201667581 Inject Tendon/Ligament Completed 11/20/2016 27680 Therapeutic, Prophylactic Or Diagnostic Injection Subq/Im Completed 11/20/2016 80407 Test Autonomic Nervous System, Sudomotor Completed 10/24/201677762 Inject Tendon/Ligament Completed 10/24/201643377 Inject Tendon/Ligament Completed 10/24/201661288 Inject Tendon/Ligament Completed 10/24/201661460 Inject Tendon/Ligament Completed 10/24/201663541 Arthrocentesis/Aspiration/Inj Of Major Joint Or Bursa W/ Completed Ultra 10/24/2016 Arthrocentesis/Aspiration/Inj Of Major Joint Or Bursa W/ Completed Ultra 10/24/2016 85681 Therapeutic, Prophylactic Or Diagnostic Injection Subq/Im Completed 10/24/2016 45040 Omt 1-2 Body Regions Completed 09/24/2016 26975 Therapeutic, Prophylactic Or Diagnostic Injection Subq/Im Completed 09/24/2016 48829 U/S Guidance For Needle Placement Completed 09/24/2016 27514 Injection For Nerve Block, Other Peripheral Nerve Or Completed Branch 06/06/2016 25213 Omt 3-4 Body Regions Completed 06/06/2016 40779 Therapeutic, Prophylactic Or Diagnostic Injection Subq/Im Completed 05/08/2016 00973 Therapeutic, Prophylactic Or Diagnostic Injection Subq/Im Completed 05/08/2016 34595 Omt 3-4 Body Regions Completed 04/08/2016 30948 Omt 3-4 Body Regions Completed 04/08/2016 82078 Therapeutic, Prophylactic Or Diagnostic Injection Subq/Im Completed 03/08/2016 05550 Therapeutic, Prophylactic Or Diagnostic Injection Subq/Im Completed 03/08/201619013 Arthrocentesis/Aspiration/Inj Of Major Joint Or Bursa W/ Completed Ultra 03/08/2016 Arthrocentesis/Aspiration/Inj Of Major Joint Or Bursa W/ Completed Ultra 02/08/2016 41152 Therapeutic, Prophylactic Or Diagnostic Injection Subq/Im Completed 01/09/2016 30947 Therapeutic, Prophylactic Or Diagnostic Injection Subq/Im Completed 12/07/2015 17826 Therapeutic, Prophylactic Or Diagnostic Injection Subq/Im Completed 11/09/2015 36809 Therapeutic, Prophylactic Or Diagnostic Injection Subq/Im Completed 10/23/2015 94228 U/S Guidance For Needle Placement Completed 10/23/201535676 Inject Tendon/Ligament Completed 10/23/201584416 Inject Tendon/Ligament Completed 10/09/2015 62107 Therapeutic, Prophylactic Or Diagnostic Injection Subq/Im Completed 09/14/2015 34638 Omt 3-4 Body Regions Completed 09/14/2015 46662 Therapeutic, Prophylactic Or Diagnostic Injection Subq/Im Completed 08/11/2015 39548 Therapeutic, Prophylactic Or Diagnostic Injection Subq/Im Completed 07/13/2015 54140 Omt 3-4 Body Regions Completed 07/13/2015 92211 Therapeutic, Prophylactic Or Diagnostic Injection Subq/Im Completed 06/15/201592864 Arthrocentesis/Aspiration/Inj Of Major Joint Or Bursa W/ Completed Ultra 05/15/2015 44316 Therapeutic, Prophylactic Or Diagnostic Injection Subq/Im Completed 05/15/2015 Inject/Drain Arthrocentesis Small Joint/Bursa Completed 05/15/2015 47773 Inject Tendon/Ligament Completed 04/13/2015 67359 Therapeutic, Prophylactic Or Diagnostic Injection Subq/Im Completed 03/16/2015 47121 Therapeutic, Prophylactic Or Diagnostic Injection Subq/Im Completed 03/16/2015 18107 Test Autonomic Nervous System, Sudomotor Completed 02/23/201547249 Arthrocentesis/Aspiration/Inj Of Major Joint Or Bursa W/ Completed Ultra 02/13/2015 99685 Therapeutic, Prophylactic Or Diagnostic Injection Subq/Im Completed 02/13/201571944 Arthrocentesis Aspiration Inj, Small Joint/Bursa W US Completed Guidance 02/13/201527217 Inject Tendon/Ligament Completed 01/25/2015 03182 U/S Guidance For Needle Placement Completed 01/25/201503628 Inject Tendon/Ligament Completed 01/12/2015 18239 Therapeutic, Prophylactic Or Diagnostic Injection Subq/Im Completed 2014 37873 Omt 3-4 Body Regions Completed 2014 36211 Therapeutic, Prophylactic Or Diagnostic Injection Subq/Im Completed 11/18/2014 77263 Delta-Nerve Conduction 13+ Studies Completed 11/10/2014 Arthrocentesis/Aspiration/Inj Of Major Joint Or Bursa W/ Completed Ultra 08/18/2014 20191 Test Autonomic Nervous System, Sudomotor Completed 08/18/201400334 Arthrocentesis/Aspiration/Inj Of Major Joint Or Bursa W/ Completed Ultra 06/21/201403425 Inject/Drain Arthrocentesis Major Joint/Bursa/Ganglion Completed Cyst 06/21/2014 92225 U/S Guidance For Needle Placement Completed 04/12/2014 72326 Omt 3-4 Body Regions Completed 11/11/2013 93860 Omt 1-2 Body Regions Completed 06/10/2013 10487 Omt 1-2 Body Regions Completed 03/08/2013 20827 Omt 5-6 Body Regions Completed 02/05/2013 49948 U/S Guidance For Needle Placement Completed 02/05/201308033 Inject Tendon/Ligament Completed 2012 81548 U/S Guidance For Needle Placement Completed 12/15/201262685 Inject Tendon/Ligament Completed 07/08/2012 33473 Test Autonomic Nervous System, Vasomotor Adrenergic Completed Innervation 07/08/2012 74282 Test Autonomic Nervous System, Cardiovagal Innervation Completed 06/29/2012 10928 Delta-Nerve Conduction 13+ Studies Completed Encounters Type Date Location Provider Dx Diagnosis Office Visit 04/21/2018 Main Office as Of Sorin Orellana DO G89.21 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 due 9:00a 03/13/13 [facility] to trauma M54.2 Cervicalgia M54.6 Pain in thoracic spine M25.511 Pain in right shoulder K21.9 Gastro-esophageal reflux disease without esophagitis G44.209 Tension-type headache, unspecified, not intractable 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 Office Visit 04/06/2018 10:00a Main Office as Sorin Orellana G89.21 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 due Of 03/13/13 DO, [facility] to trauma M54.2 Cervicalgia M99.01 Segmental and somatic dysfunction of cervical region M54.6 Pain in thoracic spine M99.02 Segmental and somatic dysfunction of thoracic region M25.511 Pain in right shoulder M99.07 Segmental and somatic dysfunction of upper extremity R53.83 Other fatigue K21.9 Gastro-esophageal reflux disease without esophagitis 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 Z13.31 Encounter for screening for depression 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 of the autonomic nervous system Z71.89 Other specified counseling Office Visit 03/05/2018 2:45p Main Office as Sorin Orellana G89.21 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 due Of 03/13/13 DO, [facility] to trauma M25.551 Pain in right hip M54.2 Cervicalgia M54.6 Pain in thoracic spine R53.83 Other fatigue 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 Office Visit 02/05/2018 9:30a Main Office as Sorin Orellana G89.21 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 due Of 2//14 DO, [facility] to trauma M25.551 Pain in right hip R53.83 Other fatigue Z79.891 group home (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 Office Visit 01/19/2018 3:00p Main Office as Sorin Orellana G89.21 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 due Of 2//14 DO, [facility] to trauma M25.551 Pain in right hip M65.88 Other synovitis and tenosynovitis, other site Office Visit 01/13/2018 3:00p Main Office as Sorin Orellana G89.21 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 due Of 2//14 DO, [facility] to trauma M65.311 Trigger thumb, right thumb Office Visit 01/06/2018 9:00a Main Office as Sorin Orellana G89.21 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 due Of 2/02/23 DO, [facility] to trauma M54.2 Cervicalgia M54.6 Pain in thoracic spine M25.511 Pain in right shoulder M25.512 Pain in left shoulder 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 R53.83 Other fatigue Office Visit 12/03/2017 11:30a Main Office as Sorin Orellana G89.21 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 due Of 2//14 DO, MPH to trauma M54.2 Cervicalgia M99.01 Segmental and somatic dysfunction of cervical region M54.6 Pain in thoracic spine M99.02 Segmental and somatic dysfunction of thoracic region M25.511 Pain in right shoulder M25.512 Pain in left shoulder M99.07 Segmental and somatic dysfunction of upper extremity R53.83 Other fatigue 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 Office Visit 11/06/2017 9:30a Main Office as Sorin Orellana G89.21 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 due Of 2//14 DO, MPH to trauma M54.2 Cervicalgia M54.5 Low back pain M25.552 Pain in left hip Z79.891 group home (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 Office Visit 10/23/2017 10:45a Main Office as Sorin Orellana G89.21 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 due Of 2//14 DO, MPH to trauma M25.551 Pain in right hip M25.552 Pain in left hip M54.2 Cervicalgia M54.5 Low back pain 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 R53.83 Other fatigue Office Visit 09/23/2017 11:15a Main Office as Sorin Orellana G89.21 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 due Of 03/13/13 DO, MPH to trauma M54.2 Cervicalgia M25.552 Pain in left hip M25.551 Pain in right hip M54.5 Low back pain 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 R53.83 Other fatigue Office Visit 08/22/2017 2:00p Main Office as Sorin Orellana G89.21 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 due Of 03/13/13 DO, MPH to trauma M54.5 Low back pain M54.2 Cervicalgia M25.552 Pain in left hip M25.551 Pain in right hip R53.83 Other fatigue 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 Office Visit 07/23/2017 10:45a Main Office as Sorin Orellana G89.21 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 due Of 03/13/13 DO, MPH to trauma M54.5 Low back pain M54.2 Cervicalgia M99.01 Segmental and somatic dysfunction of cervical region M25.551 Pain in right hip M25.552 Pain in left hip R53.83 Other fatigue Z79.891 group home (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 Office Visit 06/23/2017 11:30a Main Office as Sorin Orellana G89.21 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 due Of 03/13/13 DO, MPH to trauma M54.5 Low back pain M70.71 Other bursitis of hip, right hip M70.61 Trochanteric bursitis, right hip R53.83 Other fatigue Z79.891 group home (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 Office Visit 05/23/2017 11:15a Main Office as Sorin Orellana G89.21 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 due Of 03/13/13 DO, MPH to trauma M70.72 Other bursitis of hip, left hip M70.62 Trochanteric bursitis, left hip M54.5 Low back pain Z79.891 group home (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 Office Visit 05/06/2017 11:00a Main Office as Sorin Orellana G89.21 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 due Of 03/13/13 DO, MPH to trauma M70.71 Other bursitis of hip, right hip M70.61 Trochanteric bursitis, right hip M54.5 Low back pain R53.83 Other fatigue 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 Office Visit 04/23/2017 3:30p Main Office as Sorin Orellana G89.21 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 due Of 03/13/13 DO, MPH to trauma M70.61 Trochanteric bursitis, right hip M54.5 Low back pain 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 Office Visit 03/25/2017 10:30a Main Office as Sorin Orellana G89.21 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 due Of 03/13/13 DO, MPH to trauma M70.61 Trochanteric bursitis, right hip M54.5 Low back pain R53.83 Other fatigue 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 M25.551 Pain in right hip Office Visit 02/18/2017 10:30a Main Office as Sorin Orellana G89.21 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 due Of 03/13/13 DO, MPH to trauma M25.552 Pain in left hip M25.551 Pain in right hip M54.2 Cervicalgia M54.6 Pain in thoracic spine M54.5 Low back pain Z79.891 group home (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 Office Visit 01/22/2017 2:15p Main Office as Sorin Orellana G89.21 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 due Of 03/13/13 DO, MPH to trauma M25.551 Pain in right hip M25.552 Pain in left hip M54.2 Cervicalgia M99.01 Segmental and somatic dysfunction of cervical region M54.6 Pain in thoracic spine M99.02 Segmental and somatic dysfunction of thoracic region M54.5 Low back pain M99.03 Segmental and somatic dysfunction of lumbar region R53.83 Other fatigue Z71.89 Other specified counseling 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 Office Visit 12/23/2016 2:00p Main Office as Sorin Orellana G89.21 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 due Of 03/13/13 DO, MPH to trauma M25.552 Pain in left hip M25.551 Pain in right hip M65.88 Other synovitis and tenosynovitis, other site R53.83 Other fatigue 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 Office Visit 11/20/2016 3:45p Main Office as Sorin Orellana G89.21 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 due Of 03/13/13 DO, MPH to trauma M54.2 Cervicalgia M54.5 Low back pain M25.552 Pain in left hip M25.551 Pain in right hip M54.6 Pain in thoracic spine Z79.891 group home (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 R53.83 Other fatigue 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 of the autonomic nervous system Office Visit 10/24/2016 10:30a Main Office as Sorin Orellana G89.21 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 due Of 03/13/13 DO, MPH to trauma M54.5 Low back pain M54.2 Cervicalgia M25.551 Pain in right hip M25.552 Pain in left hip M54.6 Pain in thoracic spine M54.17 Radiculopathy, lumbosacral region M99.05 Segmental and somatic dysfunction of pelvic region M65.88 Other synovitis and tenosynovitis, other site 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 R53.83 Other fatigue Office Visit 09/24/2016 10:00a Main Office as Sorin Orellana G89.21 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 due Of 03/13/13 DO, MPH to trauma M54.5 Low back pain M54.2 Cervicalgia M25.551 Pain in right hip M54.6 Pain in thoracic spine M54.17 Radiculopathy, lumbosacral region R53.83 Other fatigue Z79.891 group home (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 Office Visit 09/10/2016 10:30a Main Office as Sorin Orellana G89.21 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 due Of 03/13/13 DO, MPH to trauma M54.5 Low back pain M54.2 Cervicalgia Z79.891 group home (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 Office Visit 08/05/2016 10:30a Main Office as Niki Barbosa 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 M54.5 Low back pain M54.2 Cervicalgia M25.551 Pain in right hip Z71.89 Other specified counseling Office Visit 07/05/2016 11:15a Main Office as Sorin Orellana G89.21 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 due Of 03/13/13 DO, MPH to trauma M54.2 Cervicalgia M54.6 Pain in thoracic spine M54.5 Low back pain M25.551 Pain in right hip Z79.891 group home (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 Office Visit 06/06/2016 11:00a Main Office as Sorin Orellana G89.21 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 due Of 03/13/13 DO, MPH to trauma M54.2 Cervicalgia M54.5 Low back pain M25.551 Pain in right hip R53.83 Other fatigue M99.03 Segmental and somatic dysfunction of lumbar region M99.05 Segmental and somatic dysfunction of pelvic region M53.3 Sacrococcygeal disorders, not elsewhere classified M99.04 Segmental and somatic dysfunction of sacral region Z79.891 group home (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 Office Visit 05/08/2016 10:30a Main Office as Sorin Orellana G89.21 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 due Of 03/13/13 DO, MPH to trauma M25.551 Pain in right hip M54.5 Low back pain M54.2 Cervicalgia R53.83 Other fatigue M99.00 Segmental and somatic dysfunction of head region M99.01 Segmental and somatic dysfunction of cervical region M99.02 Segmental and somatic dysfunction of thoracic region 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 Office Visit 04/08/2016 3:30p Main Office as Sorin Orellana G89.21 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 due Of 2 DO, MPH to trauma M25.551 Pain in right hip M54.5 Low back pain M99.03 Segmental and somatic dysfunction of lumbar region M54.2 Cervicalgia M99.01 Segmental and somatic dysfunction of cervical region M54.6 Pain in thoracic spine M99.02 Segmental and somatic dysfunction of thoracic region R53.83 Other fatigue Z79.891 group home (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 Office Visit 03/08/2016 10:00a Main Office as Sorin Orellana G89.21 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 due Of 2// DO, MPH to trauma M25.551 Pain in right hip M54.5 Low back pain R53.83 Other fatigue M25.552 Pain in left hip Office Visit 02/08/2016 10:30a Main Office as Niki Barbosa G89.21 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 Of 2//14 [employer]RIX SUPERVISOR 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 M25.552 Pain in left hip M25.551 Pain in right hip M54.5 Low back pain M54.17 Radiculopathy, lumbosacral region R53.83 Other fatigue Z79.891 group home (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 Office Visit 01/09/2016 10:30a Main Office as Niki Barbosa G89.21 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 Of 2// [employer]RIX SUPERVISOR 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 M25.551 Pain in right hip M25.552 Pain in left hip M54.5 Low back pain M54.17 Radiculopathy, lumbosacral region Z71.89 Other specified counseling R53.83 Other fatigue Office Visit 12/07/2015 10:45a Main Office as Niki Barbosa G89.21 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 Of 2//14 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 M54.5 Low back pain M25.551 Pain in right hip M54.17 Radiculopathy, lumbosacral region Z71.89 Other specified counseling R53.83 Other fatigue 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 Office Visit 11/09/2015 11:15a Main Office as Sorin Orellana G89.21 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 due Of 2/02/23 DO, MPH to trauma M25.551 Pain in right hip M70.61 Trochanteric bursitis, right hip M54.5 Low back pain M54.17 Radiculopathy, lumbosacral region Z79.891 group home (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 R53.83 Other fatigue Office Visit 10/23/2015 10:30a Main Office as Sorin Orellana G89.21 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 due Of 2/02/23 DO, MPH to trauma M25.551 Pain in right hip M54.5 Low back pain M70.61 Trochanteric bursitis, right hip M65.88 Other synovitis and tenosynovitis, other site Office Visit 10/09/2015 10:00a Main Office as Niki Barbosa 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 M25.551 Pain in right hip M54.5 Low back pain M54.17 Radiculopathy, lumbosacral region Z71.89 Other specified counseling Z79.891 group home (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 R53.83 Other fatigue Office Visit 09/25/2015 3:45p Main Office as Niki Barbosa 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 M54.5 Low back pain M25.551 Pain in right hip M54.17 Radiculopathy, lumbosacral region Z71.89 Other specified counseling Z79.891 group home (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 Office Visit 09/14/2015 10:15a Main Office as Sorin Orellana G89.21 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 due Of 03/13/13 DO, MPH to trauma M54.2 Cervicalgia M99.01 Segmental and somatic dysfunction of cervical region M54.6 Pain in thoracic spine M99.02 Segmental and somatic dysfunction of thoracic region M54.5 Low back pain M99.03 Segmental and somatic dysfunction of lumbar region M25.551 Pain in right hip M54.17 Radiculopathy, lumbosacral region R53.83 Other fatigue Office Visit 08/25/2015 2:15p Main Office as Niki Barbosa 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 M54.2 Cervicalgia M54.6 Pain in thoracic spine M54.5 Low back pain M25.551 Pain in right hip M54.17 Radiculopathy, lumbosacral region 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 Office Visit 08/11/2015 2:30p Main Office as Niki Barbosa 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 M54.5 Low back pain M54.6 Pain in thoracic spine M54.2 Cervicalgia M25.551 Pain in right hip M54.17 Radiculopathy, lumbosacral region R53.83 Other fatigue Z71.89 Other specified counseling Z79.891 group home (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 Office Visit 07/13/2015 10:45a Main Office as Niki Barbosa G89.21 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 Of 2// [employer]RIX SUPERVISOR 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 M54.2 Cervicalgia M99.01 Segmental and somatic dysfunction of cervical region M54.6 Pain in thoracic spine M99.02 Segmental and somatic dysfunction of thoracic region M54.5 Low back pain M25.551 Pain in right hip M99.03 Segmental and somatic dysfunction of lumbar region M54.17 Radiculopathy, lumbosacral region R53.83 Other fatigue Z79.891 group home (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 Office Visit 06/15/2015 9:15a Main Office as Sorin Orellana G89.21 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 due Of 03/13/13 DO, MPH to trauma M54.5 Low back pain M25.551 Pain in right hip M70.61 Trochanteric bursitis, right hip Office Visit 05/15/2015 10:15a Main Office as Niki Barbosa G89.21 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 Of 2// [employer]RIX SUPERVISOR 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 M79.641 Pain in right hand M25.551 Pain in right hip M54.17 Radiculopathy, lumbosacral region M54.5 Low back pain M54.2 Cervicalgia R53.83 Other fatigue Z71.89 Other specified counseling Z79.891 group home (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 M65.4 Radial styloid tenosynovitis [de Quervain] M65.88 Other synovitis and tenosynovitis, other site Office Visit 04/13/2015 9:00a Main Office as Niki Barbosa G89.21 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 Of 2// [employer]RIX SUPERVISOR 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 M54.2 Cervicalgia M54.5 Low back pain M54.17 Radiculopathy, lumbosacral region M25.551 Pain in right hip M79.641 Pain in right hand R53.83 Other fatigue 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 of the autonomic nervous system 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 Office Visit 03/16/2015 11:30a Main Office as Niki Barbosa G89.21 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 Of 2 [employer]RIX SUPERVISOR 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 M54.5 Low back pain M54.2 Cervicalgia M54.17 Radiculopathy, lumbosacral region M79.641 Pain in right hand M25.551 Pain in right hip M62.830 Muscle spasm of back R53.83 Other fatigue 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 of the autonomic nervous system Office Visit 02/23/2015 3:45p Main Office as Sorin Orellana G89.21 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 due Of 03/13/13 DO, MPH to trauma M54.5 Low back pain M25.551 Pain in right hip Office Visit 02/13/2015 9:45a Main Office as Sorin Orellana G89.21 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 due Of 03/13/13 DO, MPH to trauma M54.5 Low back pain M54.17 Radiculopathy, lumbosacral region M25.551 Pain in right hip R53.83 Other fatigue M65.4 Radial styloid tenosynovitis [de Quervain] M79.641 Pain in right hand Office Visit 01/25/2015 3:30p Main Office as Sorin Orellana G89.21 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 due Of 03/13/13 DO, MPH to trauma M54.5 Low back pain M54.17 Radiculopathy, lumbosacral region M25.551 Pain in right hip Office Visit 01/12/2015 9:45a Main Office as Niki Barbosa G89.21 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 Of 2 MATRIX SUPERVISOR 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 M54.5 Low back pain M25.551 Pain in right hip M79.641 Pain in right hand M54.17 Radiculopathy, lumbosacral region Z71.89 Other specified counseling R53.83 Other fatigue Office Visit 2014 9:30a Main Office as Sorin Orellana Z79.891 group home Of 03/13/13 DO, MPH (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 G89.21 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 M54.14 Radiculopathy, thoracic region M25.551 Pain in right hip M99.01 Segmental and somatic dysfunction of cervical region M99.02 Segmental and somatic dysfunction of thoracic region M54.5 Low back pain M99.03 Segmental and somatic dysfunction of lumbar region 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 R53.83 Other fatigue Office Visit 11/10/2014 10:15a Main Office as Sorin Orellana, G89.21 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 due Of 03/13/13 DO, MPH to trauma M54.5 Low back pain M25.551 Pain in right hip Office Visit 10/13/2014 9:45a Main Office as Sorin Orellana, 338.21 Chronic Pain Due Of 03/13/13 DO, MPH To Trauma 724.2 Lumbago 724.4 Neuritis Or Radiculitis Thoracic Or Lumbosacral Unspec Office Visit 09/15/2014 10:00a Main Office as Niki Barbosa, 338.21 Chronic Pain Of 03/13/13 [employer]RIX SUPERVISOR Due To Trauma 719.49 Pain Joint Multiple Sites 724.2 Lumbago 723.1 Cervicalgia 719.45 Pain Joint Pelvic Region & Thigh 337.9 Autonomic Nervous System Disorder Unspec Office Visit 08/18/2014 9:40a Main Office as Niki Barbsoa, 338.21 Chronic Pain Of 03/13/13 MATRIX SUPERVISOR Due To Trauma 724.2 Lumbago 723.1 Cervicalgia 719.45 Pain Joint Pelvic Region & Thigh 719.49 Pain Joint Multiple Sites 337.9 Autonomic Nervous System Disorder Unspec Office Visit 08/01/2014 9:45a Main Office as Sorin Orellana, 338.21 Chronic Pain Due Of 03/13/13 DO, MPH To Trauma 724.2 Lumbago 723.1 Cervicalgia 719.45 Pain Joint Pelvic Region & Thigh 719.49 Pain Joint Multiple Sites 729.5 Pain In Limb Office Visit 07/18/2014 3:00p Main Office as Niki Barbosa, 338.21 Chronic Pain Of 03/13/13 MATRIX SUPERVISOR Due To Trauma 719.45 Pain Joint Pelvic Region & Thigh 724.2 Lumbago 723.1 Cervicalgia 719.49 Pain Joint Multiple Sites 729.2 Neuralgia Neuritis & Radiculitis Unspec V58.69 Medications [facility] (Current) Use Encounter Office Visit 06/21/2014 10:30a Main Office as Sorin Orellana, 338.21 Chronic Pain Due Of 03/13/13 DO, MPH To Trauma 719.45 Pain Joint Pelvic Region & Thigh 724.2 Lumbago 728.85 Spasm Muscle Office Visit 06/02/2014 2:00p Main Office as Sorin Orellana, 338.21 Chronic Pain Due Of 03/13/13 DO, MPH To Trauma 719.45 Pain Joint Pelvic Region & Thigh 723.1 Cervicalgia 719.49 Pain Joint Multiple Sites Office Visit 05/13/2014 9:15a Main Office as Sorin Orellana, 338.21 Chronic Pain Due Of 03/13/13 DO, MPH To Trauma 719.49 Pain Joint Multiple Sites 723.1 Cervicalgia Office Visit 04/12/2014 9:30a Main Office as Sorin Orellana, 338.21 Chronic Pain Due Of 03/13/13 DO, MPH To Trauma 719.49 Pain Joint Multiple Sites 723.1 Cervicalgia 739.1 Lesion Nonallopathic Cervical Region Not Elsewhere Class 724.1 Pain Thoracic Spine 739.2 Lesion Nonallopathic Thoracic Region Not Elsewhere Class 724.2 Lumbago 739.3 Lesion Nonallopathic Lumbar Region Not Elsewhere Class Office Visit 03/17/2014 3:15p Main Office as Sorin Orellana, 338.21 Chronic Pain Due Of 03/13/13 DO, MPH To Trauma 719.49 Pain Joint Multiple Sites 723.1 Cervicalgia 724.2 Lumbago Office Visit 02/14/2014 3:30p Main Office as Sorin Orellana, 338.21 Chronic Pain Due Of 03/13/13 DO, MPH To Trauma 724.2 Lumbago 723.1 Cervicalgia 719.49 Pain Joint Multiple Sites Office Visit 01/14/2014 2:30p Main Office as Sorin Orellana, 338.21 Chronic Pain Due Of 03/13/13 DO, MPH To Trauma 719.49 Pain Joint Multiple Sites 724.2 Lumbago 723.1 Cervicalgia Office Visit 12/16/2013 3:15p Main Office as Sorin Orellana, 338.21 Chronic Pain Due Of 03/13/13 DO, MPH To Trauma 724.2 Lumbago 723.1 Cervicalgia 719.49 Pain Joint Multiple Sites Office Visit 11/11/2013 10:45a Main Office as Sorin Orellana, 338.21 Chronic Pain Due Of 03/13/13 DO, MPH To Trauma 724.2 Lumbago 728.85 Spasm Muscle 739.3 Lesion Nonallopathic Lumbar Region Not Elsewhere Class V58.69 Medications [facility] (Current) Use Encounter Office Visit 10/14/2013 1:30p Main Office as Sorin Orellana, 338.21 Chronic Pain Due Of 03/13/13 DO, MPH To Trauma 724.2 Lumbago 728.85 Spasm Muscle Office Visit 09/07/2013 3:15p Main Office as Sorin Orellana 338.21 Chronic Pain Due Of 03/13/13 DO, MPH To Trauma 724.2 Lumbago 337.9 Autonomic Nervous System Disorder Unspec Office Visit 08/09/2013 3:30p Main Office as Sorin Orellana, 338.21 Chronic Pain Due Of 03/13/13 DO, MPH To Trauma 724.2 Lumbago 719.49 Pain Joint Multiple Sites Office Visit 07/08/2013 4:00p Main Office as Sorin Orellana 338.21 Chronic Pain Due Of 03/13/13 DO, MPH To Trauma 724.2 Lumbago 307.81 Headache Tension Office Visit 06/10/2013 3:00p Main Office as Sorin Orellana, 338.21 Chronic Pain Due Of 03/13/13 DO, MPH To Trauma 724.2 Lumbago 307.81 Headache Tension 739.1 Lesion Nonallopathic Cervical Region Not Elsewhere Class 739.0 Lesion Nonallopathic Head Region Not Elsewhere Class Office Visit 05/13/2013 10:00a Main Office as Sorin Orellana 338.21 Chronic Pain Due Of 03/13/13 DO, MPH To Trauma 724.2 Lumbago 729.1 Myalgia & Myositis Unspec Office Visit 04/12/2013 2:30p Main Office as Sorin Orellana, 338.21 Chronic Pain Due Of 03/13/13 DO, MPH To Trauma 724.2 Lumbago 729.1 Myalgia & Myositis Unspec Office Visit 04/07/2013 9:15a Main Office as Sorin Orellana, 338.21 Chronic Pain Due Of 03/13/13 DO, MPH To Trauma 724.2 Lumbago Office Visit 03/08/2013 10:45a Main Office as Sorin Orellana, 338.21 Chronic Pain Due Of 03/13/13 DO, MPH To Trauma 724.2 Lumbago 739.3 Lesion Nonallopathic Lumbar Region Not Elsewhere Class 724.1 Pain Thoracic Spine 739.2 Lesion Nonallopathic Thoracic Region Not Elsewhere Class 723.1 Cervicalgia 739.1 Lesion Nonallopathic Cervical Region Not Elsewhere Class 739.0 Lesion Nonallopathic Head Region Not Elsewhere Class 719.45 Pain Joint Pelvic Region & Thigh 739.5 Lesion Nonallopathic Pelvic Region Not Elsewhere Class 726.19 Shoulder Disorders Other 739.7 Lesion Nonallopathic Upper Extremity Not Elsewhere Class Office Visit 02/05/2013 9:15a Main Office as Sorin Orellana, 338.21 Chronic Pain Due Of 03/13/13 DO, MPH To Trauma 724.2 Lumbago 727.09 Synovitis & Tenosynovitis Other 719.45 Pain Joint Pelvic Region & Thigh Office Visit 01/04/2013 9:45a Main Office as Sorin Orellana, 338.21 Chronic Pain Due Of 03/13/13 DO, MPH To Trauma 724.2 Lumbago 727.09 Synovitis & Tenosynovitis Other Office Visit 2012 9:00a Main Office as Sorin Orellana, 338.21 Chronic Pain Due Of 03/13/13 DO, MPH To Trauma 727.09 Synovitis & Tenosynovitis Other Office Visit 12/09/2012 10:45a Main Office as Sorin Orellana, 338.21 Chronic Pain Due Of 03/13/13 DO, MPH To Trauma 724.2 Lumbago Office Visit 11/03/2012 3:30p Main Office as Sorin Orellana, 338.21 Chronic Pain Due Of 03/13/13 DO, MPH To Trauma 724.2 Lumbago Office Visit 10/13/2012 3:30p Main Office as Sorin Orellana, 338.21 Chronic Pain Due Of 03/13/13 DO, MPH To Trauma 724.2 Lumbago Office Visit 09/24/2012 2:45p Main Office as Sorin Orellana, 338.21 Chronic Pain Due Of 03/13/13 DO, MPH To Trauma 724.2 Lumbago Office Visit 09/09/2012 3:15p Main Office as Sorin Orellana, 338.21 Chronic Pain Due Of 03/13/13 DO, MPH To Trauma 724.2 Lumbago Office Visit 08/11/2012 2:45p Main Office as Sorin Orellana, 338.21 Chronic Pain Due Of 03/13/13 DO, MPH To Trauma 724.2 Lumbago Office Visit 07/14/2012 4:30p Main Office as Sorin Orellana, 338.21 Chronic Pain Due Of 03/13/13 DO, MPH To Trauma 724.2 Lumbago 337.9 Autonomic Nervous System Disorder Unspec Office Visit 07/10/2012 3:00p Main Office as Sorin Orellana, 338.21 Chronic Pain Due Of 03/13/13 DO, MPH To Trauma 724.2 Lumbago 337.9 Autonomic Nervous System Disorder Unspec Office Visit 06/26/2012 9:00a Main Office as Sorin Orellana, 338.21 Chronic Pain Due Of 03/13/13 DO, MPH To Trauma 724.2 Lumbago Plan of Treatment Future Appointment(s):06/04/2018 10:00 am - Sorin Orellana DO, MPH at Main Office as Of 03/13/1402 - Sorin Orellana DO, MPHG89.21 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Comments:Chronic. Symptoms and complaints discussed and reviewed today. No significant changes in physical findings. Continue current medical pain management.M54.2 CervicalgiaComments:Chronic. Symptoms and complaints discussed and reviewed today. No significant changes in physical findings. Continue current medical pain management.M54.6 Pain in thoracic spineComments: Chronic.Symptoms and complaints discussed and reviewed today. No significant changes in physical findings. Continue current medical pain management.M25.511 Pain in right shoulderComments:Chronic. Symptoms and complaints discussed and reviewed today. No significant changes in physical findings. Continue current medical pain management.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New Labs:Urine Drug Screen, Ordered: 05/08/18Comments:Urine drug screen sample taken today to monitor opiate use and to monitor use of illicit substances.Will discuss results at next appointment.The following tests were ordered:6 AM, AMPH , MARGARITA, DORY, BUP, CARIS, COCM, COT, ETG, FENT, MCSHSG, OPI, OXY, PCP, TAPEN, XTSY, ZOLP. A urine drug test (UDT) was ordered for this patient and collected on site today. Creatinine has been ordered as well for specimen validity, not for kidney function. Preliminary UDT results are not final and should not be used to determine patient care or plan of treatment. Initially a qualitative immunoassay screen will be done. Any inconsistent or positive findings will be further tested with a more comprehensive quantitative confirmation LCMS study. It is part of the treatment process of prescribing controlled substances and is considered standard of care.R53.83 Other fatigueComments:Symptoms and complaints discussed and reviewed today. No significant changes in physical findings. Continue current medical pain management. B12 injection administered after patient evaluated. 1ml IM for fatigue. (See Consent for injection-B12 document for lot number and expiration date.)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 of the autonomic nervous systemComments: Sudomotor test report reviewed with the patient today. The test was Positive for possible autonomic dysfunction at this time. Will follow effects of pain and current medical treatment. Future testing will help to monitor the effects of chronic illness, pain and subsequent treatment on the autonomic nervous system. May retest in 3-6 monthsAlpha lipoic acid 100 - 200 mg tid. suggested to patient. Thishas been shown to help with the neuropathic component of pain and autonomic dysfunction.AllComments:All above symptoms and complaints discussed as well as diagnoses reviewed.Continue trial of opioid pain management - note changes below; injection therapy, osteopathic manipulation ( OMT), PT / modalities, and consults as needed to manage chronic pain.Side effects discussed; anticipatory guidance given. Patient clearly understands and agrees with all medical treatments and suggestions. All medicines prescribed are adequate and appropriate for this patient's complaint of pain, medical history, physical, and personal goals.Goals of Treatment are to provide adequate and appropriate multidisciplinary medical pain management to increase/ maintain patient's quality of life and functionality while maintaining satisfactory side effect profile and minimizing terminal operations manager end-organ damage. Activity as toleratedContinue with PCP
--- OUTSIDE RECORDS SUMMARY | 2018-05-15 14:28 | XMS REPORT | Continuity of Care Document ---
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 [address] [place] [address] Effective: 2017 Policy Number: [id number] Medicaid MAKENZIE Chong Expires: 2017 PayID: [id number] [address] [place] [id number] Effective: 2017 Policy Number: [id number] [facility] Chinyere Chong PayID: [id number] [address] [address] [place] [address] Advance Directives Description No Information Available Problems [...] smoker, smokes every day Smoking Status Reviewed: 04/21/18 Patient is a current smoker, smokes every day Allergies, Adverse Reactions, Alerts Date Description Reaction Status Severity Comments 06/26/2012 Penicillin Active Medications Medication Date Status Form Strength Qnty SIG Indications Ordering Provider Gabapentin 03/05/ Active Capsules 400mg 45cap si by Janice Orellana s mouth Sorin, every 8 as WALI HORNE directed chronic pain. Oxycodone HCL 12/22/ Active Tablets 15mg 60tab si by Esteban 2015 s mouth Sorin, every 4 to DO, MPH 6 hours as directed chronic pain patient Zanaflex 07/12/ Active Tablets 4mg 45tab si by Esteban 2015 s mouth Sorin, three a DO, MPH day as directed chronic pain patient Aleve / Active Capsules 220mg Unknown 0000 Allergy & Sinus / Active Tablets 25-10-650 Unknown Intense Strength 0000 mg Singulair / Active Tablets 10mg 1 by mouth Unknown 0000 every day Tolterodine / Active Tablets 1mg one a day Unknown Tartrate 0000 Omeprazole / Active Capsules 20mg 1 by mouth Unknown 0000 DR every day Albuterol / Active Aerosol 90mcg/Dos Unknown Inhalation 0000 e Tumeric / Active Unknown 0000 Gabapentin 04/23/ Hx Capsules 300mg 90cap si by Esteban 2018 - s mouth Sorin, 03/05/ three DO, MPH 2019 times a day as directed Gabapentin 12/23/ Hx Capsules 100mg 60cap take 1-2 Esteban 2016 - s capsules Sorin, 04/23/ by mouth DO, MPH 2017 at night Celebrex 07/05/ Hx Capsules 200mg 60cap si-2 by Esteban 2016 - s mouth Sorin, 09/10/ daily as DO, MPH 2016 directed chronic pain patient Oxycodone HCL 06/10/ Hx Tablets 10mg 120ta si by Darci Orellana - bs mouth Sorin, 10/24/ every 4 to DO, MPH 2016 6 hours as directed chronic pain patient Oxycodone HCL 06/06/ Hx Tablets 5mg 150ta si by Esteban 2017 - bs mouth Sorin, 06/10/ every 4 to DO, MPH 2016 6 hours as directed chronic pain patient Celebrex 03/08/ Hx Capsules 200mg 30cap si by Esteban 2017 - s mouth Sorin, 07/05/ daily as DO, MPH 2016 directed chronic pain patient take with food and water. Gabapentin 02/07/ Hx Capsules 100mg 90cap take 1 Esteban 2015 - s capsules Sorin, 03/08/ by mouth DO, MPH 2016 every 8 hours ud. chronic pain. Cane 02/07/ Hx Misc 1unit use as Esteban 2015 - s directed Sorin, 04/08/ DO, MPH 2016 Meloxicam 01/08/ Hx Tablets 7.5mg 30tab si by Esteban 2015 - s mouth Sorin, 03/08/ every DO, MPH 2017 morning as directed chronic pain. take with food. Tramadol HCL 07/12/ Hx Tablets 50mg 30tab si by Esteban 2015 - s mouth Sorin, 10/23/ every 8 DO, MPH 2018 hours as needed pain Zanaflex 03/16/ Hx Tablets 4mg 60tab sig:-1 by Esteban 2015 - s mouth Sorin, 07/12/ every 8 to DO, MPH 2015 12 hours as directed chronic pain patient dose increase Zanaflex 11/14/ Hx Tablets 4mg 30tab si/2-1 Esteban 2014 - s by mouth Sorin, 03/16/ at night DO, MPH 2016 as directed chronic pain patient Tramadol HCL 09/15/ Hx Tablets 50mg 60tab si-2 Esteban 2014 - s by mouth Sorin, 07/12/ every DO, MPH 2016 night at bedtime as directed chronic pain. Cyclobenzaprine 09/15/ Hx Tablets 10mg 45tab si by TIANA Orellana 2014 - mouth Sorin, 10/08/ every 8 DO, MPH [...] Capsules 100mg 30cap take 1 Esteban 2014 - s capsules Sorin, 02/07/ by mouth DO, MPH 2016 every evening ud. chronic pain. Oxycodone HCL 06/02/ Hx Tablets 10mg 120ta si by Esteban 2014 - bs mouth Sorin, 06/06/ every 4 to DO, MPH 2017 6 hours as directed chronic pain patient Oxycodone HCL 02/14/ Hx Tablets 5mg 180ta si-2 by Esteban, 2014 - bs mouth Sorin, 06/02/ every 4 to DO, MPH 2014 6 hours as directed chronic pain patient Oxycodone HCL 12/16/ Hx Capsules 5mg 150ca si-2 Orellana, 2013 - ps po q4-6h Sorin, 02/14/ ud DO, MPH 2014 chronic pain patient Chlorzoxazone 10/18/ Hx Tablets 500mg 90tab si by Orellana, 2013 - s mouth Sorin, 06/21/ three DO, MPH 2015 times a day chronic pain patient Lorzone 10/14/ Hx Tablets 375mg 90tab 1 po tid Orellana, 2013 - s Sorin, 10/18/ DO, MPH 2013 Medrol Dosepak 08/09/ Hx Tablets 4mg 21tab sig: ud Orellana, 2013 - s Sorin, 11/11/ DO, MPH 2013 Ketamine 10% Vicente 08/09/ Hx Cream 240un sig: apply Orellana, 2% Cyclo 2% Diclo 2013 - 1-2 gm to Sorin, 3% Rock 6% 01/12/ affected DO, MPH Tetracaine 2% 2015 area 3-4 times daily Oxycodone HCL 04/12/ [...] tid Orellana, HCL 2013 - s Sorin, 10/14/ DO, MPH 2013 Opana ER (Crush 04/07/ Hx T12a 10mg 60uni si po Orellana, Resistant) 2013 - ts q12h ud Sorin, 04/12/ DO, MPH 2013 Opana ER (Crush 03/09/ Hx T12a 5mg 60uni take 1 po Orellana, Resistant) 2013 - ts q 12 hrs Sorin, 04/07/ ud chronic DO, MPH 2013 pain patient Analgesic Cream 01/05/ Hx Cream BP1 1unit sig: apply Orellana, ([place]) 2012 - s 1-2 grams Sorin, 01/12/ to the DO, MPH 2014 affected area 3-4 times daily Amrix 12/15/ Hx Caps ER 15mg 30cap si po Orellana, 2012 - 24HR s qpm ud Sorin, 04/07/ DO, MPH 2013 Zanaflex 12/09/ Hx Capsules 4mg 60cap si/2- Orellana, 2012 - s po bid day Sorin, 12/15/ ud DO, MPH 2012 brand [...] Morphine Sulfate 07/14/ Hx Tablets 15mg 60tab si/2- Orellana, 2012 - s po bid ud [...] HCL 0000 - s tid ud 2012 Amitriptyline HCL / Hx Tablets 10mg si by Unknown 0000 - mouth 11/10/ 2014 night Pramipexole / Hx Tablets 0.25mg Unknown Dihydrochloride - 2014 Potassimin / Hx Tablets 75mg [...] as needed as directed chronic pain patient Amoxicillin/Clavu / Hx Tablets 875-125mg 1 by mouth Unknown lanate Potassium 0000 - twice a day for 10 2018 days Immunizations Description No Information Available Vital Signs Date Vital Result Comment 04/21/2018 9:04am BP Systolic 128 mmHg BP [...] Pain Level Without Medicine 11/19 without meds Pain Level After Procedure [...] Pain Level Without Medicine 11/19 without meds Pain Level After Procedure [...] 5'3" Weight 180.00 lb Pain Level 8 09/19, Pain at this time. Pain Level With Medicine 8 8/10, on average with meds Pain Level Without Medicine 10 11/19 without meds BMI (Body Mass Index) 31.9 kg/m2 01/09/2016 10:06am BP Systolic 130 mmHg BP Diastolic 80 mmHg Heart Rate 82 /min Respiratory Rate 18 /min Height 63 inches 5'3" Weight 190.00 lb Pain Level 7 7, Pain at this time. Pain Level With Medicine 7 08/19, on average with meds Pain Level Without Medicine 10 11/19 without meds BMI (Body Mass Index) 33.7 kg/m2 12/07/2015 9:50am BP Systolic 134 mmHg BP Diastolic 80 mmHg Heart Rate 76 /min Respiratory Rate 18 /min Height 63 inches 5'3" Weight 184.00 lb Pain Level 8 09/19, Pain at [...] 5'3" Weight 184.00 lb Pain Level 9 10/20, Pain at [...] 10/10 without meds BMI (Body Mass Index) 32.9 kg/m2 09/14/2015 8:23am BP Systolic 142 mmHg BP Diastolic 80 mmHg Heart Rate 82 /min Respiratory Rate 18 /min Height 63 inches 5'3" Weight 186.00 lb Pain Level 8 Pain at this time. Pain Level With Medicine 7 on average with meds Pain Level Without Medicine 10 1010 without meds BMI (Body Mass Index) 32.9 [...] Level Without Medicine 10 1010 without meds Pain Level After Procedure 4 [...] 5'3" Weight 182.00 lb Pain Level 7 7/10, Pain at this time. Pain Level With Medicine 6 6/10, on average with meds Pain Level Without Medicine 10 10/10 without meds BMI (Body Mass Index) 32.2 kg/m2 09/15/2014 9:53am BP Systolic 126 mmHg BP Diastolic 72 mmHg Heart Rate 74 /min Respiratory Rate 18 /min Height 63 inches 5'3" Weight 182.00 lb Pain Level 6 6/10, Pain at this time. Pain Level With Medicine 6 6/10, on average with meds Pain Level Without Medicine 10 10 without meds BMI (Body Mass Index) 32.2 [...] 5'3" Weight 189.00 lb Pain Level 8 8/10, Pain at this time. Pain Level With Medicine 7 710, on average with meds Pain Level Without [...] 5'3" Weight 190.00 lb Pain Level 9 910, Pain at this time. Pain Level With Medicine 5 10, on average with meds Pain Level [...] 5'3" Weight 186.00 lb Pain Level 6 10, Pain at this time. Pain Level With Medicine 5 10, on average with meds Pain Level [...] 5'3" Weight 182.00 lb Pain Level 8 8/10, Pain at [...] 5'3" Weight 189.00 lb Pain Level 9 910, Pain at this time. Pain Level With [...] Level Without Medicine 10 11/19 without meds 07/08/2013 4:18pm BP Systolic 124 mmHg BP Diastolic 78 mmHg Heart Rate 78 /min Respiratory Rate 20 /min Height 63 inches 5'3" Pain Level 5 5/10, Pain at this time. Pain Level With Medicine 3 3/10, on average with meds Pain Level Without Medicine 9 910 without meds 06/10/2013 2:43pm BP Systolic 132 mmHg BP Diastolic 78 mmHg Heart Rate 84 /min Respiratory Rate 18 /min Height 63 inches 5'3" Weight 180.00 lb Pain Level 8 8/10, Pain at this time. Pain Level With Medicine 8 8/10, on average with meds Pain Level Without Medicine 10 10 without meds BMI (Body Mass Index) 31.9 kg/m2 05/13/2013 9:51am BP Systolic 122 mmHg BP Diastolic 78 mmHg Heart Rate 74 /min Respiratory Rate 18 /min Height 63 inches 5'3" Weight 181.00 lb Pain Level 6-7 6-7/10, Pain at this time. Pain Level With [...] 11/19 without meds BMI (Body Mass Index) 31.5 [...] 10 without meds BMI (Body Mass Index) 31.2 [...] this time. Pain Level With Medicine 8 810, on average with meds Pain Level Without Medicine 10 11/19 without meds BMI (Body Mass Index) 31.7 kg/m2 2012 9:29am BP Systolic 126 mmHg BP Diastolic 78 mmHg Heart Rate 84 /min Respiratory Rate 18 /min Height 63 inches 5'3" Weight 181.00 lb Pain Level 9 10, Pain at [...] 5'3" Weight 181.00 lb Pain Level 8-9 8-10/20, Pain at this time. Pain Level With Medicine 8 09/19, on average with meds Pain Level Without Medicine 10 11/19 without meds BMI (Body Mass Index) 32.1 kg/m2 11/03/2012 3:38pm BP Systolic 118 mmHg BP Diastolic 74 mmHg Heart Rate 76 /min Respiratory Rate 18 /min Height 63 inches 5'3" Weight 182.00 lb Pain Level 5-6 5-10, Pain at this time. Pain Level With Medicine 4 10, on average with meds Pain Level Without Medicine 10 11/19 without meds BMI (Body Mass Index) 32.2 kg/m2 10/13/2012 3:33pm BP Systolic 118 mmHg BP Diastolic 60 mmHg Heart Rate 72 /min Respiratory Rate 18 /min Height 63 inches 5'3" Weight 173.00 lb Pain Level 7 710, Pain at this time. Pain Level With Medicine 3 3, on average with meds Pain Level Without Medicine 10 11/19 without meds BMI (Body Mass Index) 30.6 kg/m2 09/24/2012 2:45pm BP Systolic 118 mmHg BP Diastolic 70 mmHg Heart Rate 64 /min Respiratory Rate 18 /min Height 63 inches 5'3" Weight 175.00 lb Pain Level 3 310, Pain at this time. Pain Level With [...] 5'3" Weight 168.00 lb Pain Level 4 05/20, Pain at this time. Pain Level With Medicine 3 310, on average with meds Pain Level Without Medicine 10 11/19 without meds BMI (Body Mass Index) 29.8 kg/m2 07/14/2012 4:19pm BP Systolic 130 mmHg BP Diastolic 80 mmHg Heart Rate 80 /min Respiratory Rate 18 /min Height 63 inches 5'3" Weight 168.00 lb Pain Level 9 10/20, Pain at this time. Pain Level Without Medicine 9 10/20 without meds BMI (Body Mass Index) 29.8 kg/m2 07/10/2012 2:59pm BP Systolic 118 mmHg BP Diastolic 80 mmHg Heart Rate 84 /min Respiratory Rate 18 /min Height 63 inches 5'3" Weight 168.00 lb Pain Level 7 10, Pain at this time. Pain Level With Medicine 4 10, on average with meds Pain Level Without Medicine 10 11/19 without meds BMI (Body Mass Index) 29.8 kg/m2 06/26/2012 9:16am BP Systolic 116 mmHg BP Diastolic 68 mmHg Heart Rate 84 /min Respiratory Rate 18 /min Height 63 inches 5'3" Weight 158.00 lb Pain Level 3 10, Pain at this time. Pain Level With Medicine 3 10, on average with meds Pain Level Without Medicine 10 11/19 without meds BMI (Body Mass Index) 28.0 kg/m2 Results Description No Information Available Procedures Date Code Description Status 04/06/2018 46253 Omt 3-4 Body Regions Completed 04/06/2018 84826 Therapeutic, Prophylactic Or Diagnostic Injection Subq/Im Completed 04/06/2018 12199 Brief Emotional/Behav Assessment W/ Scoring Doc Per Completed Standard Inst 04/06/2018 02483 Test Autonomic Nervous System, Sudomotor Completed 04/06/2018 35768 Test Autonomic Nervous System, Cardiovagal Innervation Completed 03/05/2018 39004 Therapeutic, Prophylactic Or Diagnostic Injection Subq/Im Completed 02/05/2018 31852 Therapeutic, Prophylactic Or Diagnostic Injection Subq/Im Completed 01/19/201808981 Arthrocentesis/Aspiration/Inj Of Major Joint Or Bursa W/ Completed Ultra 01/19/2018 94400 Inject Tendon/Ligament Completed 01/19/2018 75244 Inject Tendon/Ligament Completed 01/13/201842699 Arthrocentesis Aspiration Inj, Small Joint/Bursa W US Completed Guidance 01/06/2018 29425 Therapeutic, Prophylactic Or Diagnostic Injection Subq/Im Completed 12/03/2017 63724 Omt 3-4 Body Regions Completed 12/03/2017 06934 Therapeutic, Prophylactic Or Diagnostic Injection Subq/Im Completed 10/23/2017 42809 Therapeutic, Prophylactic Or Diagnostic Injection Subq/Im Completed 09/23/2017 49989 Therapeutic, Prophylactic Or Diagnostic Injection Subq/Im Completed 09/23/2017 41127 Arthrocentesis/Aspiration/Inj Of Major Joint Or Bursa W/ Completed Ultra 08/22/2017 45312 Therapeutic, Prophylactic Or Diagnostic Injection Subq/Im Completed 07/23/2017 29051 Omt 1-2 Body Regions Completed 07/23/2017 35759 Therapeutic, Prophylactic Or Diagnostic Injection Subq/Im Completed 06/23/2017 73104 Therapeutic, Prophylactic Or Diagnostic Injection Subq/Im Completed 06/23/2017 38393 U/S Guidance For Needle Placement Completed 06/23/2017 46681 Inject Tendon/Ligament Completed 06/23/2017 19309 Inject Tendon/Ligament Completed 05/23/201772028 Arthrocentesis/Aspiration/Inj Of Major Joint Or Bursa W/ Completed Ultra 05/06/2017 87804 Therapeutic, Prophylactic Or Diagnostic Injection Subq/Im Completed 05/06/201779998 Inject Tendon/Ligament Completed 03/25/2017 Arthrocentesis/Aspiration/Inj Of Major Joint Or Bursa W/ Completed Ultra 03/25/2017 85993 Therapeutic, Prophylactic Or Diagnostic Injection Subq/Im Completed 01/22/2017 37126 Omt 3-4 Body Regions Completed 01/22/2017 24438 Therapeutic, Prophylactic Or Diagnostic Injection Subq/Im Completed 12/23/2016 65358 Therapeutic, Prophylactic Or Diagnostic Injection Subq/Im Completed 12/23/2016 Arthrocentesis/Aspiration/Inj Of Major Joint Or Bursa W/ Completed Ultra 12/23/2016 Arthrocentesis/Aspiration/Inj Of Major Joint Or Bursa W/ Completed Ultra 12/23/201699508 Inject Tendon/Ligament Completed 12/23/201609253 Inject Tendon/Ligament Completed 12/23/201634091 Inject Tendon/Ligament Completed 12/23/201617387 Inject Tendon/Ligament Completed 11/20/2016 75071 Therapeutic, Prophylactic Or Diagnostic Injection Subq/Im Completed 11/20/2016 21131 Test Autonomic Nervous System, Sudomotor Completed 10/24/201667897 Inject Tendon/Ligament Completed 10/24/201659656 Inject Tendon/Ligament Completed 10/24/201666359 Inject Tendon/Ligament Completed 10/24/201609052 Inject Tendon/Ligament Completed 10/24/2016 Arthrocentesis/Aspiration/Inj Of Major Joint Or Bursa W/ Completed Ultra 10/24/2016 Arthrocentesis/Aspiration/Inj Of Major Joint Or Bursa W/ Completed Ultra 10/24/2016 45797 Therapeutic, Prophylactic Or Diagnostic Injection Subq/Im Completed 10/24/2016 79381 Omt 1-2 Body Regions Completed 09/24/2016 73077 Therapeutic, Prophylactic Or Diagnostic Injection Subq/Im Completed 09/24/2016 07603 U/S Guidance For Needle Placement Completed 09/24/2016 45458 Injection For Nerve Block, Other Peripheral Nerve Or Completed Branch 06/06/2016 00756 Omt 3-4 Body Regions Completed 06/06/2016 15365 Therapeutic, Prophylactic Or Diagnostic Injection Subq/Im Completed 05/08/2016 77084 Therapeutic, Prophylactic Or Diagnostic Injection Subq/Im Completed 05/08/2016 80227 Omt 3-4 Body Regions Completed 04/08/2016 04424 Omt 3-4 Body Regions Completed 04/08/2016 47100 Therapeutic, Prophylactic Or Diagnostic Injection Subq/Im Completed 03/08/2016 23711 Therapeutic, Prophylactic Or Diagnostic Injection Subq/Im Completed 03/08/201630590 Arthrocentesis/Aspiration/Inj Of Major Joint Or Bursa W/ Completed Ultra 03/08/2016 Arthrocentesis/Aspiration/Inj Of Major Joint Or Bursa W/ Completed Ultra 02/08/2016 07156 Therapeutic, Prophylactic Or Diagnostic Injection Subq/Im Completed 01/09/2016 29471 Therapeutic, Prophylactic Or Diagnostic Injection Subq/Im Completed 12/07/2015 71287 Therapeutic, Prophylactic Or Diagnostic Injection Subq/Im Completed 11/09/2015 67753 Therapeutic, Prophylactic Or Diagnostic Injection Subq/Im Completed 10/23/2015 27281 U/S Guidance For Needle Placement Completed 10/23/201513350 Inject Tendon/Ligament Completed 10/23/201533363 Inject Tendon/Ligament Completed 10/09/2015 55172 Therapeutic, Prophylactic Or Diagnostic Injection Subq/Im Completed 09/14/2015 81825 Omt 3-4 Body Regions Completed 09/14/2015 00699 Therapeutic, Prophylactic Or Diagnostic Injection Subq/Im Completed 08/11/2015 12039 Therapeutic, Prophylactic Or Diagnostic Injection Subq/Im Completed 07/13/2015 82903 Omt 3-4 Body Regions Completed 07/13/2015 24623 Therapeutic, Prophylactic Or Diagnostic Injection Subq/Im Completed 06/15/201588353 Arthrocentesis/Aspiration/Inj Of Major Joint Or Bursa W/ Completed Ultra 05/15/2015 81232 Therapeutic, Prophylactic Or Diagnostic Injection Subq/Im Completed 05/15/2015 96929 Inject/Drain Arthrocentesis Small Joint/Bursa Completed 05/15/2015 31025 Inject Tendon/Ligament Completed 04/13/2015 86041 Therapeutic, Prophylactic Or Diagnostic Injection Subq/Im Completed 03/16/2015 23036 Therapeutic, Prophylactic Or Diagnostic Injection Subq/Im Completed 03/16/2015 55358 Test Autonomic Nervous System, Sudomotor Completed 02/23/2015 Arthrocentesis/Aspiration/Inj Of Major Joint Or Bursa W/ Completed Ultra 02/13/2015 18666 Therapeutic, Prophylactic Or Diagnostic Injection Subq/Im Completed 02/13/201542741 Arthrocentesis Aspiration Inj, Small Joint/Bursa W US Completed Guidance 02/13/201571002 Inject Tendon/Ligament Completed 01/25/2015 11291 U/S Guidance For Needle Placement Completed 01/25/201598520 Inject Tendon/Ligament Completed 01/12/2015 90995 Therapeutic, Prophylactic Or Diagnostic Injection Subq/Im Completed 2014 22555 Omt 3-4 Body Regions Completed 2014 14766 Therapeutic, Prophylactic Or Diagnostic Injection Subq/Im Completed 11/18/2014 43234 Delta-Nerve Conduction 13+ Studies Completed 11/10/2014 Arthrocentesis/Aspiration/Inj Of Major Joint Or Bursa W/ Completed Ultra 08/18/2014 86068 Test Autonomic Nervous System, Sudomotor Completed 08/18/2014 Arthrocentesis/Aspiration/Inj Of Major Joint Or Bursa W/ Completed Ultra 06/21/201467428 Inject/Drain Arthrocentesis Major Joint/Bursa/Ganglion Completed Cyst 06/21/2014 55638 U/S Guidance For Needle Placement Completed 04/12/2014 78805 Omt 3-4 Body Regions Completed 11/11/2013 12923 Omt 1-2 Body Regions Completed 06/10/2013 00653 Omt 1-2 Body Regions Completed 03/08/2013 31838 Omt 5-6 Body Regions Completed 02/05/2013 64820 U/S Guidance For Needle Placement Completed 02/05/201333659 Inject Tendon/Ligament Completed 2012 08756 U/S Guidance For Needle Placement Completed 12/15/201260693 Inject Tendon/Ligament Completed 07/08/2012 56264 Test Autonomic Nervous System, Vasomotor Adrenergic Completed Innervation 07/08/2012 95834 Test Autonomic Nervous System, Cardiovagal Innervation Completed 06/29/2012 40623 Delta-Nerve Conduction 13+ Studies Completed Encounters Type Date Location Provider Dx Diagnosis Office Visit 04/06/2018 Main Office as Of Sorin Orellana DO, G89.21 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 due 10:00a 14 MPH to trauma M54.2 Cervicalgia M99.01 Segmental and somatic dysfunction of cervical region M54.6 Pain in thoracic spine M99.02 Segmental and somatic dysfunction of thoracic region M25.511 Pain in right shoulder M99.07 Segmental and somatic dysfunction of upper extremity R53.83 Other fatigue K21.9 Gastro-esophageal reflux disease without esophagitis Z79.891 [facility] (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 Z13.31 Encounter for screening for depression 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 of the autonomic nervous system Z71.89 Other specified counseling Office Visit 03/05/2018 2:45p Main Office as Sorin Orellana G89.21 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 due Of 2//14 DO, MPH to trauma M25.551 Pain in right hip M54.2 Cervicalgia M54.6 Pain in thoracic spine R53.83 Other fatigue 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 Office Visit 02/05/2018 9:30a Main Office as Sorin Orellana G89.21 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 due Of 2//14 DO, MPH to trauma M25.551 Pain in right hip R53.83 Other fatigue 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 Office Visit 01/19/2018 3:00p Main Office as Sorin Orellana G89.21 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 due Of 2//14 DO, MPH to trauma M25.551 Pain in right hip M65.88 Other synovitis and tenosynovitis, other site Office Visit 01/13/2018 3:00p Main Office as Sorin Orellana G89.21 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 due Of 2/1/14 DO, MPH to trauma M65.311 Trigger thumb, right thumb Office Visit 01/06/2018 9:00a Main Office as Sorin Orellana G89.21 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 due Of 2//14 DO, MPH to trauma M54.2 Cervicalgia M54.6 Pain in thoracic spine M25.511 Pain in right shoulder M25.512 Pain in left shoulder Z79.891 [facility] (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 R53.83 Other fatigue Office Visit 12/03/2017 11:30a Main Office as Sorin Orellana G89.21 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 due Of 2/1/14 DO, MPH to trauma M54.2 Cervicalgia M99.01 Segmental and somatic dysfunction of cervical region M54.6 Pain in thoracic spine M99.02 Segmental and somatic dysfunction of thoracic region M25.511 Pain in right shoulder M25.512 Pain in left shoulder M99.07 Segmental and somatic dysfunction of upper extremity R53.83 Other fatigue 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 Office Visit 11/06/2017 9:30a Main Office as Sorin Orellana G89.21 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 due Of 03/13/13 DO, MPH to trauma M54.2 Cervicalgia M54.5 Low back pain M25.552 Pain in left hip Z79.891 [facility] (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 Office Visit 10/23/2017 10:45a Main Office as Sorin Orellana G89.21 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 due Of 03/13/13 DO, MPH to trauma M25.551 Pain in right hip M25.552 Pain in left hip M54.2 Cervicalgia M54.5 Low back pain Z79.891 [facility] (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 R53.83 Other fatigue Office Visit 09/23/2017 11:15a Main Office as Sorin Orellana G89.21 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 due Of 03/13/13 DO, MPH to trauma M54.2 Cervicalgia M25.552 Pain in left hip M25.551 Pain in right hip M54.5 Low back pain Z79.891 [facility] (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 R53.83 Other fatigue Office Visit 08/22/2017 2:00p Main Office as Sorin Orellana G89.21 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 due Of 03/13/13 DO, MPH to trauma M54.5 Low back pain M54.2 Cervicalgia M25.552 Pain in left hip M25.551 Pain in right hip R53.83 Other fatigue Z79.891 [facility] (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 Office Visit 07/23/2017 10:45a Main Office as Sorin Orellana G89.21 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 due Of 03/13/13 DO, MPH to trauma M54.5 Low back pain M54.2 Cervicalgia M99.01 Segmental and somatic dysfunction of cervical region M25.551 Pain in right hip M25.552 Pain in left hip R53.83 Other fatigue 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 Office Visit 06/23/2017 11:30a Main Office as Sorin Orellana G89.21 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 due Of 03/13/13 DO, MPH to trauma M54.5 Low back pain M70.71 Other bursitis of hip, right hip M70.61 Trochanteric bursitis, right hip R53.83 Other fatigue Z79.891 [facility] (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 Office Visit 05/23/2017 11:15a Main Office as Sorin Orellana G89.21 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 due Of 03/13/13 DO, MPH to trauma M70.72 Other bursitis of hip, left hip M70.62 Trochanteric bursitis, left hip M54.5 Low back pain 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 Office Visit 05/06/2017 11:00a Main Office as Sorin Orellana G89.21 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 due Of 03/13/13 DO, MPH to trauma M70.71 Other bursitis of hip, right hip M70.61 Trochanteric bursitis, right hip M54.5 Low back pain R53.83 Other fatigue 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 Office Visit 04/23/2017 3:30p Main Office as Sorin Orellana G89.21 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 due Of 03/13/13 DO, MPH to trauma M70.61 Trochanteric bursitis, right hip M54.5 Low back pain Z79.891 [facility] (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 Office Visit 03/25/2017 10:30a Main Office as Sorin Orellana G89.21 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 due Of 2 DO, MPH to trauma M70.61 Trochanteric bursitis, right hip M54.5 Low back pain R53.83 Other fatigue Z79.891 [facility] (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 M25.551 Pain in right hip Office Visit 02/18/2017 10:30a Main Office as Sorin Orellana G89.21 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 due Of 03/13/13 DO, MPH to trauma M25.552 Pain in left hip M25.551 Pain in right hip M54.2 Cervicalgia M54.6 Pain in thoracic spine M54.5 Low back pain Z79.891 [facility] (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 Office Visit [...] Other fatigue Z71.89 Other specified counseling Z79.891 [facility] (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 Office Visit 12/23/2016 2:00p Main Office as Sorin Orellana G89.21 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 due Of 03/13/13 DO, MPH to trauma M25.552 Pain in left hip M25.551 Pain in right hip M65.88 Other synovitis and tenosynovitis, other site R53.83 Other fatigue Z79.891 [facility] (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 Office Visit 11/20/2016 3:45p Main Office as Sorin Orellana G89.21 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 due Of 03/13/13 DO, MPH to trauma M54.2 Cervicalgia M54.5 Low back pain M25.552 Pain in left hip M25.551 Pain in right hip M54.6 Pain in thoracic spine 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 R53.83 Other [...] Other synovitis and tenosynovitis, other site 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 R53.83 Other fatigue Office Visit 09/24/2016 10:00a Main Office as Sorin Orellana G89.21 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 due Of /02/23 DO, MPH to trauma M54.5 Low back pain M54.2 Cervicalgia M25.551 Pain in right hip M54.6 Pain in thoracic spine M54.17 Radiculopathy, lumbosacral region R53.83 Other fatigue 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 Office Visit 09/10/2016 10:30a Main Office as Sorin Orellana G89.21 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 due Of 2 DO, MPH to trauma M54.5 Low back pain M54.2 Cervicalgia Z79.891 [facility] (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 Office Visit 08/05/2016 10:30a Main Office as Niki Barbosa G89.21 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 M54.5 Low back pain M54.2 Cervicalgia M25.551 Pain in right hip Z71.89 Other specified counseling Office Visit 07/05/2016 11:15a Main Office as Sorin Orellana G89.21 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 due Of 03/13/13 DO, MPH to trauma M54.2 Cervicalgia M54.6 Pain in thoracic spine M54.5 Low back pain M25.551 Pain in right hip 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 Office Visit 06/06/2016 11:00a Main Office as Sorin Orellana G89.21 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 due Of 2 DO, MPH to trauma M54.2 Cervicalgia M54.5 Low back pain M25.551 Pain in right hip R53.83 Other fatigue M99.03 Segmental and somatic dysfunction of lumbar region M99.05 Segmental and somatic dysfunction of pelvic region M53.3 Sacrococcygeal disorders, not elsewhere classified M99.04 Segmental and somatic dysfunction of sacral region 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 Office Visit 05/08/2016 10:30a Main Office as Sorin Orellana G89.21 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 due Of 2 DO, MPH to trauma M25.551 Pain in right hip M54.5 Low back pain M54.2 Cervicalgia R53.83 Other fatigue M99.00 Segmental and somatic dysfunction of head region M99.01 Segmental and somatic dysfunction of cervical region M99.02 Segmental and somatic dysfunction of thoracic region 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891 [facility] (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 Office Visit 01/09/2016 10:30a Main Office as Niki Barbosa G89.21 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 Of 2//14 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 M25.551 Pain in right hip M25.552 Pain in left hip M54.5 Low back pain M54.17 Radiculopathy, lumbosacral region Z71.89 Other specified counseling R53.83 Other fatigue Office Visit 12/07/2015 10:45a Main Office as Niki Barbosa G89.21 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 Of 2// 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 M54.5 Low back pain M25.551 Pain in right hip M54.17 Radiculopathy, lumbosacral region Z71.89 Other specified counseling R53.83 Other fatigue Z79.891 [facility] (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 Office Visit 11/09/2015 11:15a Main Office as Sorin Orellana G89.21 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 due Of 03/13/13 DO, MPH to trauma M25.551 Pain in right hip M70.61 Trochanteric bursitis, right hip M54.5 Low back pain M54.17 Radiculopathy, lumbosacral region Z79.891 [facility] (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 R53.83 Other fatigue Office Visit 10/23/2015 10:30a Main Office as Sorin Orellana G89.21 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 due Of 03/13/13 DO, MPH to trauma M25.551 Pain in right hip M54.5 Low back pain M70.61 Trochanteric bursitis, right hip M65.88 Other synovitis and tenosynovitis, other site Office Visit 10/09/2015 10:00a Main Office as Nkii Barbosa G89.21 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 Of 214 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 M25.551 Pain in right hip M54.5 Low back pain M54.17 Radiculopathy, lumbosacral region Z71.89 Other specified counseling 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 R53.83 Other fatigue Office Visit 09/25/2015 3:45p Main Office as Niki Barbosa G89.21 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 Of 2/ 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 M54.5 Low back pain M25.551 Pain in right hip M54.17 Radiculopathy, lumbosacral region Z71.89 Other specified counseling Z79.891 [facility] (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 Office Visit [...] Niki Barbosa G89.21 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 M54.2 Cervicalgia M54.6 Pain in thoracic spine M54.5 Low back pain M25.551 Pain in right hip M54.17 Radiculopathy, lumbosacral region 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 Office Visit 08/11/2015 2:30p Main Office as Niki Barbosa G89.21 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 M54.5 Low back pain M54.6 Pain in thoracic spine M54.2 Cervicalgia M25.551 Pain in right hip M54.17 Radiculopathy, lumbosacral region R53.83 Other fatigue Z71.89 Other specified counseling Z79.891 [facility] (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 Office Visit 07/13/2015 10:45a Main Office as Niki Barbosa G89.21 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 Of 2 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 M54.2 Cervicalgia M99.01 Segmental and somatic dysfunction of cervical region M54.6 Pain in thoracic spine M99.02 Segmental and somatic dysfunction of thoracic region M54.5 Low back pain M25.551 Pain in right hip M99.03 Segmental and somatic dysfunction of lumbar region M54.17 Radiculopathy, lumbosacral region R53.83 Other fatigue Z79.891 [facility] (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 Office Visit 06/15/2015 9:15a Main Office as Sorin Orellana G89.21 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 due Of 03/13/13 DO, MPH to trauma M54.5 Low back pain M25.551 Pain in right hip M70.61 Trochanteric bursitis, right hip Office Visit 05/15/2015 10:15a Main Office as Niki Barbosa G89.21 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 Of 2 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 M79.641 Pain in right hand M25.551 Pain in right hip M54.17 Radiculopathy, lumbosacral region M54.5 Low back pain M54.2 Cervicalgia R53.83 Other fatigue Z71.89 Other specified counseling Z79.891 [facility] (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 M65.4 Radial styloid tenosynovitis [de Quervain] M65.88 Other synovitis and tenosynovitis, other site Office Visit 04/13/2015 9:00a Main Office as Niki Barbosa G89.21 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 M54.2 Cervicalgia M54.5 Low back pain M54.17 Radiculopathy, lumbosacral region M25.551 Pain in right hip M79.641 Pain in right hand R53.83 Other fatigue 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 of the autonomic nervous system Z79.891 [facility] (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 Office Visit 03/16/2015 11:30a Main Office as Niki Barbosa G89.21 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 M54.5 Low back [...] due Of 2/02/23 DO, MPH to trauma M54.5 Low back [...] Niki Barbosa G89.21 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 M54.5 Low back pain M25.551 Pain in right hip M79.641 Pain in right hand M54.17 Radiculopathy, lumbosacral region Z71.89 Other specified counseling R53.83 Other fatigue Office Visit 2014 9:30a Main Office as Sorin Orellana, 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 Of 03/13/13 DO, MPH (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 G89.21 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 M54.14 Radiculopathy, thoracic region M25.551 Pain in right hip M99.01 Segmental and somatic dysfunction of cervical region M99.02 Segmental and somatic dysfunction of thoracic region M54.5 Low back pain M99.03 Segmental and somatic dysfunction of lumbar region 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 R53.83 Other fatigue Office Visit 11/10/2014 10:15a Main Office as Sorin Orellana G89.21 [...] Niki Barbosa, 338.21 Chronic Pain Of 03/13/13 LEAD SECTION SUPERVISOR Due To Trauma 719.49 Pain Joint Multiple Sites 724.2 Lumbago 723.1 Cervicalgia 719.45 Pain Joint Pelvic Region & Thigh 337.9 Autonomic Nervous System Disorder Unspec Office Visit 08/18/2014 9:40a Main Office as Niki Barbosa, 338.21 Chronic Pain Of 03/13/13 LEAD SECTION SUPERVISOR Due To Trauma 724.2 Lumbago 723.1 [...] Visit 07/18/2014 3:00p Main Office as Niki Barbosa 338.21 Chronic Pain Of 03/13/13 LEAD SECTION SUPERVISOR Due To Trauma 719.45 Pain Joint Pelvic Region & Thigh 724.2 Lumbago 723.1 Cervicalgia 719.49 Pain Joint Multiple Sites 729.2 Neuralgia Neuritis & Radiculitis Unspec 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 Office Visit 06/21/2014 10:30a Main Office as Sorin Orellana 338.21 Chronic [...] Visit 05/13/2014 9:15a Main Office as Sorin Orellana 338.21 Chronic Pain Due Of 03/13/13 DO, MPH To Trauma 719.49 Pain Joint Multiple Sites 723.1 Cervicalgia Office Visit 04/12/2014 9:30a Main Office as Sorin Orellana 338.21 Chronic [...] Lumbar Region Not Elsewhere Class 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 Office Visit 10/14/2013 1:30p Main Office as Sorin Orellana, 338.21 Chronic Pain Due Of 03/13/13 DO, MPH To Trauma 724.2 Lumbago 728.85 Spasm Muscle Office Visit 09/07/2013 3:15p Main Office as Sorin Orellana, 338.21 Chronic Pain Due Of 03/13/13 DO, MPH To Trauma 724.2 Lumbago 337.9 Autonomic Nervous System Disorder Unspec Office Visit 08/09/2013 3:30p Main Office as Sorin Orellana 338.21 Chronic Pain Due Of 03/13/13 DO, MPH To Trauma 724.2 Lumbago 719.49 Pain Joint Multiple Sites Office Visit 07/08/2013 4:00p Main Office as Sorin Orellana, 338.21 Chronic [...] Visit 05/13/2013 10:00a Main Office as Sorin Orellana, 338.21 Chronic [...] Office Visit 2012 9:00a Main Office as OrellanaSriram barnettph, 338.21 Chronic Pain Due Of 03/13/13 DO, MPH To Trauma 727.09 Synovitis & Tenosynovitis Other Office Visit 12/09/2012 10:45a Main Office as OrellanaSriram barnettph, 338.21 Chronic Pain Due Of 03/13/13 DO, MPH To Trauma 724.2 Lumbago Office Visit 11/03/2012 3:30p Main Office as Orellana, Sorin, 338.21 Chronic Pain Due Of 03/13/13 DO, MPH To Trauma 724.2 Lumbago Office Visit 10/13/2012 3:30p Main Office as Orellana, Sorin, 338.21 Chronic Pain Due Of 03/13/13 DO, MPH To Trauma 724.2 Lumbago Office Visit 09/24/2012 2:45p Main Office as OrellanaSriram barnettph, 338.21 Chronic Pain Due Of 03/13/13 DO, MPH To Trauma 724.2 Lumbago Office Visit 09/09/2012 3:15p Main Office as Orellana, Sorin, 338.21 Chronic Pain Due Of 03/13/13 DO, MPH To Trauma 724.2 Lumbago Office Visit 08/11/2012 2:45p Main Office as OrellanaSriram barnettph, 338.21 Chronic Pain Due Of 03/13/13 DO, MPH To Trauma 724.2 Lumbago Office Visit 07/14/2012 4:30p Main Office as Orellana, Sorin, 338.21 Chronic Pain Due Of 03/13/13 DO, MPH To Trauma 724.2 Lumbago 337.9 Autonomic Nervous System Disorder Unspec Office Visit 07/10/2012 3:00p Main Office as Orellana, Sorin, 338.21 Chronic Pain Due Of 03/13/13 DO, MPH To Trauma 724.2 Lumbago 337.9 Autonomic Nervous System Disorder Unspec Office Visit 06/26/2012 9:00a Main Office as RoellanaSriram barnettph, 338.21 Chronic Pain Due Of 03/13/13 DO, MPH To Trauma 724.2 Lumbago Plan of Treatment 04/21/2018 - Orellana, Sorin, DO, MPHG89.21 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Comments: Chronic. Symptoms and complaints discussed and reviewed today. No significant changes in physical findings. Continue current medical pain management.M54.2 CervicalgiaComments:Chronic. Symptoms and complaints discussed and reviewed today. No significant changes in physical findings. Continue current medical pain management.M54.6 Pain in thoracic spineComments:Chronic.Symptoms and complaints discussed and reviewed today. No significant changes in physical findings. Continue current medical pain management.M25.511 Pain in right shoulderComments:Chronic. Symptoms and complaints discussed and reviewed today. No significant changes in physical findings. Continue current medical pain management.K21.9 Gastro-esophageal reflux disease without esophagitisComments: Following as pertains to chronic pain medications particularly NSAIDS and Tylenol as well as any meds that effect the GI tract.G44.209 Tension-type headache, unspecified, not intractableComments:Chronic. Symptoms and complaints discussed and reviewed today. No significant changes in physical findings. Continue current medical pain management.Z79.891 [facility] (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New Labs:Urine Drug Screen, Ordered: 04/21/18Comments:Urine drug screen sample taken today to monitor opiate use and to monitor use of illicit substances.Will discuss results at next appointment.The following tests were ordered:6 AM, AMPH, MARGARITA, DORY, BUP, CARIS, COCM, COT, ETG, [...] controlled substances and is considered standard of care.AllComments:All above symptoms and complaints discussed as well as diagnoses reviewed.Continue trial of opioid pain management - note changes below ; injection therapy, osteopathic manipulation (OMT), PT / modalities, and consults as needed [...] maintaining satisfactory side effect profile and minimizing residential end-organ damage. Activity as toleratedContinue with PCP
[2018-05-15 15:05] VITALS: BP 151/92
--- NOTE | 2018-05-15 16:12 | UC ---
Throat Pain/Nasal Kamari HPI - HPI Summary HPI Summary: 47-year-old female presents with 4 day history of nasal congestion, headache, sinus pressure, mild sore throat, occasional wheezing, and a dry nonproductive cough. States she has a history of sinus infections and thought that symptoms were recurring some therefore she contacted Dr. Haywood who placed her on Augmentin 875 mg twice a day. States she's been taking the Augmentin for the last 4 days with no improvement in her symptoms. Using albuterol inhaler 1-2 times a day. + smoker. Symptoms associated with chills, malaise, fatigue, and body aches. Denies fever, ear pain, dysphagia, chest pain, abdominal pain, nausea, vomiting, or diarrhea. - History of Current Complaint Chief Complaint: UCRespiratory Stated Complaint: CHEST CONGESTION Time Seen by Provider: 05/15/18 16:03 Hx Last Menstrual Period: 04/12/16 Pain Intensity: 8 - Allergies/Home Medications Allergies/Adverse Reactions: Allergies Allergy/AdvReac Type Severity Reaction Status Date / Time No Known Allergies Allergy Verified 05/15/18 14:54 Home Medications: Home Medications Albuterol HFA INHALER* [Ventolin HFA Inhaler*] 3 puff INH Q4H PRN 05/15/18 [ History Confirmed 05/15/18] Amoxicillin/Clavulanate TAB* [Augmentin TAB 875*] 875 mg PO BID 05/15/18 [ History Confirmed 05/15/18] Gabapentin 1,200 mg PO BEDTIME 05/15/18 [History Confirmed 05/15/18] PMH/Surg Hx/FS Hx/Imm Hx Respiratory History: Asthma Other History Of: Negative For: HIV, Hepatitis B, Hepatitis C, Anticoagulant Therapy - Surgical History Surgical History: Yes Surgery Procedure, Year, and Place: APPY - Family History Known Family History: Negative: Cardiac Disease, Diabetes - Social History Occupation: Employed Full-time Lives: With Family Alcohol Use: None Substance Use Type: None Smoking Status (MU): Heavy Every Day Tobacco Smoker Type: Cigarettes Amount Used/How Often: 1 ppd Length of Time of Smoking/Using Tobacco: started at age 16 Have You Smoked in the Last Year: Yes - Immunization History Most Recent Influenza Vaccination: 5946-9192 Review of Systems All Other Systems Reviewed And Are Negative: Yes Constitutional: Positive: Chills, Fatigue. Negative: Fever Skin: Negative: Rash Eyes: Negative: Drainage, Eye Redness ENT: Positive: Sore Throat, Nasal Discharge, Sinus Congestion, Sinus Pain/ Tenderness. Negative: Ear Ache Respiratory: Positive: Cough, Other - wheezing. Negative: Shortness Of Breath Cardiovascular: Negative: Palpitations, Chest Pain Gastrointestinal: Negative: Abdominal Pain, Vomiting, Diarrhea, Nausea Genitourinary: Positive: Negative Musculoskeletal: Positive: Myalgia Neurological: Positive: Headache Is Patient Immunocompromised?: No Physical Exam - Summary Physical Exam Summary: GENERAL APPEARANCE: Well developed, well nourished, alert and cooperative, and appears to be in no acute distress. EYES: Conjunctiva clear. No drainage. Vision is grossly intact. EARS: External auditory canals and tympanic membranes clear, hearing grossly intact. NOSE: Mild-moderate nasal congestion. No nasal discharge. Maxillary sinus tenderness. THROAT: Mild pharyngeal erythema with cobblestoning. No tonsilar inflammation, swelling, exudate, or lesions. Uvula midline. NECK: Neck supple, non-tender without lymphadenopathy. CARDIAC: Normal S1 and S2. No S3, S4 or murmurs. Rhythm is regular. There is no peripheral edema, cyanosis or pallor. Extremities are warm and well perfused. Capillary refill is less than 2 seconds. Peripheral pulses intact. LUNGS: Clear to auscultation without rales, rhonchi, wheezing or diminished breath sounds. Dry, non-productive cough. ABDOMEN: Positive bowel sounds. Soft, nondistended, nontender. No guarding or rebound. No masses or hepatosplenomegally. MUSKULOSKELETAL: ROM intact to all extremities. No joint erythema or tenderness. Normal muscular development. Normal gait. SKIN: Skin normal color, texture and turgor with no lesions or eruptions. Triage Information Reviewed: Yes Vital Signs: Initial Vital Signs Temp 98.1 F 05/15/18 14:56 Pulse 77 05/15/18 14:56 Resp 18 05/15/18 14:56 BP 151/92 05/15/18 14:56 Pulse Ox 98 05/15/18 14:56 Vital Signs Reviewed: Yes Throat Pain/Nasal Course/Dx - Course Course Of Treatment: 47-year-old female presents with 4 day history of nasal congestion, headache, sinus pressure, mild sore throat, occasional wheezing, and a dry nonproductive cough. States she has a history of sinus infections and thought that symptoms were recurring some therefore she contacted Dr. Haywood who placed her on Augmentin 875 mg twice a day. States she's been taking the Augmentin for the last 4 days with no improvement in her symptoms. Symptoms associated with chills , malaise, fatigue, and body aches. + smoker. Denies fever, ear pain, dysphagia , chest pain, abdominal pain, nausea, vomiting, or diarrhea. Afebrile. Hypertensive other vitals stable. Exam was remarkable for moderate nasal congestion, maxillary sinus tenderness, mild pharyngeal erythema with cobblestoning, clear bilateral breath sounds, and a dry nonproductive cough. Rapid flu test was negative. Suspect her symptoms are likely a viral upper respiratory infection. Recommending symptomatic treatment including Tessalon Perles one capsule every 8 hours as needed for cough. She is to follow-up with her primary care provider in 3-5 days if symptoms do not improve. Anticipatory guidance clinic symptoms are reviewed with the patient. Verbalizes understanding and agrees with plan of care. - Differential Dx/Diagnosis Differential Diagnosis/HQI/PQRI: Influenza, Sinusitis, URI Provider Diagnosis: Viral URI with cough Discharge - Sign-Out/Discharge Documenting (check all that apply): Patient Departure All imaging exams completed and their final reports reviewed: No Studies - Discharge Plan Condition: Stable Disposition: HOME Prescriptions: Benzonatate CAP* [Tessalon 100 MG CAP*] 100 mg PO TID PRN #30 cap PRN Reason: Cough Patient Education Materials: Upper Respiratory Infection (ED) Referrals: Niki Martinez NP [Primary Care Provider] - 3 Days (Follow up in 3-5 days if no improvement in symptoms.) Additional Instructions: The rapid flu test performed in the clinic today was negative. Your history and exam are consistent with a viral upper respiratory infection which is why I suspect your symptoms have not improved with the antibiotic. Viral infections do not respond to antibiotics and are limited to the treatment of symptoms. Viral infections typically run their course in 7-10 days with the first 3-5 days being the worst of the symptoms. Get plenty of rest. Drink plenty of fluids to avoid dehydration especially if you are running any fever. Use a saline rinse kit such as Neti Pot or NeilMed at least twice a day to help thin secretions and promote drainage of the sinuses. Use fluticasone (Flonase) nasal spray 2 sprays each nostril once daily. Use Tessalon Perles 1 cap every 8 hours as needed for cough. Take over the counter acetaminophen (Tylenol) or ibuprofen (Advil, Motrin) according to directions as needed for pain or fever. Follow up with your primary care provider in 3-5 days if symptoms persist. Seek immediate medical attention in the emergency room if you have fever greater than 100.5 F despite taking acetaminophen or ibuprofen, have chest pain , difficulty breathing, are unable to swallow, or have any worsening of symptoms. - Billing Disposition and Condition Condition: STABLE Disposition: Home
[2018-05-15 16:34] LABS: Influenza A Molecular NEGATIVE (Negative); Influenza B Molecular NEGATIVE (Negative)
== END 2018-05-15 16:57 | disposition home or self-care (01) ==
LOC: UCCORT 14:06
DX: J06.9 Acute upper respiratory infection, unspecified (principal); R05 Cough; J45.909 Unspecified asthma, uncomplicated; F17.210 Nicotine dependence, cigarettes, uncomplicated

== ENCOUNTER 2018-09-12 16:24 | Emergency (ER) | payer OTHER ==
--- NOTE | 2018-09-12 16:26 | UC ---
Lower Extremity/Ankle HPI - HPI Summary HPI Summary: 47 yo female presents with RIGHT ankle and foot pain. She tells me that 2-3 days ago she was walking in her home and twisted her right ankle. No fall. Didn' t think much of it - had a little pain. She continued to ambulate without assistance. 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 No new injury since initial time. Denies numbness or tingling. - History of Current Complaint Stated Complaint: RIGHT ANKLE/FOOT INJURY Time Seen by Provider: 09/12/18 16:26 Hx Obtained From: Patient Hx Last Menstrual Period: 04/12/16 Onset/Duration: Gradual Onset Severity Initially: Mild Severity Currently: Moderate Pain Intensity: 5 Pain Scale Used: 0-10 Numeric - Allergies/Home Medications Allergies/Adverse Reactions: Allergies Allergy/AdvReac Type Severity Reaction Status Date / Time No Known Allergies Allergy Verified 05/15/18 14:54 Home Medications: Home Medications Oxycodone HCl [Roxicodone] 15 mg PO QID 09/12/18 [History Confirmed 09/12/18] Topiramate 50 mg PO BEDTIME 09/12/18 [History Confirmed 09/12/18] PMH/Surg Hx/FS Hx/Imm Hx - Additional Past Medical History Additional PMH: 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 Other History Of: Negative For: HIV, Hepatitis B, Hepatitis C, Anticoagulant Therapy - Surgical History Surgical History: Yes Surgery Procedure, Year, and Place: APPY - Family History Known Family History: Positive: Non-Contributory Negative: Cardiac Disease, Diabetes - Social History Lives: With Family Alcohol Use: None Substance Use Type: None Smoking Status (MU): Heavy Every Day Tobacco Smoker Type: Cigarettes Amount Used/How Often: 1 ppd Length of Time of Smoking/Using Tobacco: started at age 16 Have You Smoked in the Last Year: Yes - Immunization History Most Recent Influenza Vaccination: [id number] Review of Systems All Other Systems Reviewed And Are Negative: Yes Constitutional: Positive: Negative Skin: Positive: Negative Respiratory: Positive: Negative Cardiovascular: Positive: Negative Neurovascular: Positive: Negative Musculoskeletal: Positive: Other: - Right ankle injury Neurological: Positive: Negative Psychological: Positive: Negative Physical Exam - Summary Physical Exam Summary: GENERAL: NAD. WDWN. No pain distress. SKIN: No rashes, sores, lesions, or open wounds. CHEST: No accessory muscle use. Breathing comfortably and in no distress. CV: Pulses intact PT and DP. Cap refill <2seconds MSK: RIGHT ANKLE: Moderate edema at lateral malleolus with mild edema at medial malleolus. Decreased ROM due to pain in all directions. Strength 5/5. Negative [place] test. RIGHT FOOT: Mild edema about foot with TTP about 5th and 4th MT. Moves all toes. NEURO: Alert. Sensations intact and symmetric B/L LEs PSYCH: Age appropriate behavior. Triage Information Reviewed: Yes Vital Signs Reviewed: Yes Lower Extremity Course/Dx - Course Course Of Treatment: XR foot: IMPRESSION: NO FRACTURE OR TRAUMATIC MALALIGNMENT OF THE RIGHT FOOT. XR ankle: FINDINGS: There is soft tissue swelling about the medial and lateral aspects of the ankle. At the level of the talar dome, a horizontally oriented lucency extends to the distal fibula (only seen on the ankle mortise view). The ankle mortise is congruent. Anatomic alignment is maintained. IMPRESSION: 1. A nondisplaced distal fibular fracture is suspected. If clinically equivalent , follow-up imaging in one week is recommended. 2. Soft tissue swelling as above. Advised to RICE. Pt was placed in a CAM boot and advised to use as much as possible. F/u with Ortho in 2-3 days for a recheck - Differential Dx/Diagnosis Provider Diagnosis: Fibula fracture Discharge - Sign-Out/Discharge Documenting (check all that apply): Patient Departure All imaging exams completed and their final reports reviewed: Yes - Discharge Plan Condition: Stable Disposition: HOME Patient Education Materials: Ankle Fracture (DC) Referrals: Niki Martinez NP [Primary Care Provider] - Kelvin Pollack MD [Medical Doctor] - 2 Days Additional Instructions: If you develop a fever, shortness of breath, chest pain, new or worsening symptoms - please call your PCP or go to the ED immediately. The X-Ray of your ankle has an area that is suspicious for a broken bone. 1) Rest, Ice, and elevate your ankle to reduce pain and swelling 2) Use the walking boot at all times. 3) Please call Orthopedics at the number below to schedule an appointment for a recheck within 2-3 days - Billing Disposition and Condition Condition: STABLE Disposition: Home
[2018-09-12 16:51] VITALS: BP 116/80
== END 2018-09-12 17:34 | disposition home or self-care (01) ==
LOC: UCCORT 16:24
DX: S82.831A Other fracture of upper and lower end of right fibula, initial encounter for closed fracture (principal); X50.1XXA Overexertion from prolonged static or awkward postures, initial encounter; Y93.01 Activity, walking, marching and hiking; Y92.009 Unspecified place in unspecified non-institutional (private) residence as the place of occurrence of the external cause; G89.29 Other chronic pain; F17.210 Nicotine dependence, cigarettes, uncomplicated
CPT/HCPCS: 99211; G0463

== ENCOUNTER 2019-04-20 10:09 | Emergency (ER) | payer OTHER ==
--- OUTSIDE RECORDS SUMMARY | 2019-04-20 10:17 | XMS REPORT | Continuity of Care Document ---
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 Capsules tabs (20mg) next week Prednisone 1 by mouth every 3tabs Domingo Haywood, 03/02/2019 10mg Tablets morning M.D. Ibuprofen 30 milliliters by 473ml Domingo Haywood, 11/19/2018 100mg/5ML mouth every 6 hours M.D. Suspension as needed pain Topiramate one to 2 at night 60tabs Domingo Haywood, 06/16/2018 50mg Tablets for 2 weeks M.D. Proair HFA 2 puffs four times 17gm Domingo Haywood, 11/14/2017 108(90Base) a day as needed for M.D. mcg/Act Aerosol sob Oxycodone HCL 1 tab every 4 hours Unknown 15mg as needed for back Tablets pain Tizanidine HCL 1 by mouth every hs Unknown 4mg Capsules Gabapentin 3 tabs @hs Unknown 400mg Capsules Nyquil HBP Cold & Flu prn @ hs Unknown 15-6.25-325mg/15ML Liquid History Medications Amoxicillin/Clavulanate 1 by mouth 20tabs Domingo Haywood, 02/12/2019 - Potassium twice a day for M.D. 03/02/2019 875-125mg Tablets 10 days Dexamethasone one tab daily 5tabs Domingo Haywood, 01/06/2019 - 4mg Tablets M.D. 02/12/2019 Dexamethasone 1 tabs in a.m. 2tabs Domingo Haywood, 12/03/2018 - 6mg Tablets and june repeat M.D. 02/12/2019 in 2 days Dexamethasone 2 by mouth post 2tabs Domingo Haywood, 11/19/2018 - 4mg Tablets op day 3 M.D. 12/03/2018 Budesonide 1 added to 30ml Domingo Haywood, 11/16/2018 - 0.25mg/2ML Suspension saline rinse M.D. 02/12/2019 daily until Friday Azithromycin 1 by mouth 5tabs Domingo Haywood, 11/16/2018 - 500mg Tablets every day for 5 M.D. 02/12/2019 days Prednisone 1 by mouth 2tabs Domingo Haywood, 11/16/2018 - 10mg Tablets every morning M.D. 02/12/2019 Prednisone 1 by mouth 5tabs Domingo Haywood, 11/10/2018 - 10mg Tablets every morning M.D. 11/16/2018 Guaifenesin 10 ml twice 400ml Domingo Haywood, 11/05/2018 - 200mg/10ML Solution daily M.D. 11/16/2018 Dexamethasone one tab daily 5tabs Domingo Haywood, 11/03/2018 - 4mg Tablets for 5 days M.D. 11/16/2018 Amoxicillin/Clavulanate 1 by mouth 14tabs Domingo Haywood, 11/03/2018 - Potassium twice a day for M.D. 11/16/2018 875-125mg Tablets 7 days Amoxicillin/Clavulanate 1 by mouth 14tabs Domingo Haywood, 10/20/2018 - Potassium twice a day for M.D. 11/03/2018 875-125mg Tablets 7 days Dexamethasone one tab daily 5tabs Domingo Haywood, 10/20/2018 - 4mg Tablets for 5 days M.D. 11/03/2018 Immunizations Description No Information Available Vital Signs Date Vital Result Comment 04/06/2019 3:57pm Weight 166.00 lb Height 63 inches 5'3" BMI (Body Mass Index) 29.4 kg/m2 BP Systolic 126 mmHg BP Diastolic 87 mmHg Heart Rate 87 /min O2 % BldC Oximetry 95 % Body Temperature 97.6 F Pain Level 0 03/02/2019 3:59pm Weight 160.00 lb Height 63 inches 5'3" BMI (Body Mass Index) 28.3 kg/m2 BP Systolic 152 mmHg BP Diastolic 102 mmHg Heart Rate 95 /min O2 % BldC Oximetry 99 % Body Temperature 97.2 F Pain Level 5 Results Test Acquired Date Facility Test Result H/L Range Note Laboratory test 11/25/2018 [facility] Surgical SEE RESULT [address] Pathology BELOW [place] [id number] [phone] 1 SEE RESULT BELOW Name: CHINYERE CHONG : [address]: Domingo Haywood MD Acct: [id number] Unit: [id number] AGE: 47 Location: [facility] Re11/25/18 SEX: F Status: REG REF SPEC: [id number] ANJUM: 11/25/181321 [facility] DR: Domingo Haywood MD REQ: [id number] RECD: 11/25/18 STATUS: SOUT _ ORDERED: LEVEL 3/2 COMMENTS: [id number] FINAL DIAGNOSIS 1. Tonsil, right, tonsillectomy: -- Benign tonsillar tissue with reactive lymphoid hyperplasia. 2. Tonsil, left, tonsillectomy: -- Benign tonsillar tissue with reactive lymphoid hyperplasia. CLINICAL HISTORY No history given GROSS DESCRIPTION 1. The specimen is received in formalin labeled, Right Tonsil, and consists of a 2.6 by up to 1.8 x 0.9 cm brock-sorenson irregular to ovoid cerebriform and focally cauterized tonsil with a small amount of adherent red-brown blood clot. The cut surface is glistening brock-thurston with normal crypts. The specimen is inked, serially sectioned and plastic products sales representative sections are submitted in one cassette. 2. The specimen is received in formalin labeled, Left Tonsil, and consists of a 3.0 x 1.7 x 1.2 cm brock-sorenson ovoid cerebriform and focally cauterized tonsil with a small amount of adherent red-brown blood clot. The cut surface is glistening brock-pink with normal crypts. The specimen is inked, serially sectioned and plastic products sales representative sections are submitted in one cassette. CONTINUED ON NEXT PAGE DEPARTMENT OF PATHOLOGY, [address] [place] [address] Naif Villasenor M.D. Director YOAN # [id number] Signed by and Reported on: Ruth Horner MD 11/27/18 1300 END OF REPORT DEPARTMENT OF PATHOLOGY, [facility] [employer] [place], [place] [address] Naif Villasenor M.D. Director YOAN # [id number] Procedures Date Code Description Status 11/25/2018 12738 Cat Scan Maxillofacial W/O Contrast,computed Completed tomography 11/25/2018 13294 Cat Scan Maxillofacial W/O Contrast,computed Completed tomography 11/25/2018 82669 Stereotactic Computer-Assisted, Cranial, Extradural Completed 11/25/2018 57896 Tonsillectomy;Age 12 Or Over Completed 11/25/2018 93719 Nasal/Sinus Endosc.W.Explor. Completed 11/25/2018 95156 Nasal/Sinus Endo Inc Sphenoido Completed 11/25/2018 34927 Nasal/Sinus Endosc.W.Max.Antrost. Completed 11/25/2018 79513 Anesthesia, Intraoral Surgery Not Otherwise Spec Completed 11/03/2018 03753 Nasal Endoscopy, Diag. Completed 10/20/2018 41320 Nasal Endoscopy, Diag. Completed 02/27/2016 [id number] Bone Mineral Density Test Completed 02/27/2016 [id number] Diabetic Retinal Eye Exam Completed 02/27/2016 [id number] Diabetic Foot Exam Completed 09/16/2011 [id number] Bone Mineral Density Test Completed 09/16/2011 [id number] Diabetic Retinal Eye Exam Completed 09/16/2011 [id number] Diabetic Foot Exam Completed Medical Devices Description No Information Available Encounters Type Date Location Provider Dx Diagnosis Office Visit 03/02/2019 Main Office Aliza Dee.Antonia Chronic sinusitis, 4:00p EXPORT MANAGER unspecified R51 Headache Office Visit 02/12/2019 9:45a Main Office Safia [email or web address] Acute sinusitis, RAVEN Angel unspecified Office Visit 11/16/2018 9:30a Main Office Safia Moreira01.90 Acute sinusitis, Stanley, EXPORT MANAGER unspecified Office Visit 11/03/2018 10:15a Main Office Domingo Haywood J32.Antonia Chronic sinusitis, M.D. unspecified J35.01 Chronic tonsillitis J31.0 Chronic rhinitis J34.2 Deviated nasal septum Office Visit 10/20/2018 2:15p Main Office Domingo Haywood J01Forest Acute sinusitis, M.D. unspecified R51 Headache J31.0 Chronic rhinitis Assessments Date Code Description Provider 03/02/2019 J32.9 Chronic sinusitis, unspecified Safia Angel NP 03/02/2019 R51 Headache Safia Angel, EXPORT MANAGER 02/12/2019 J01.90 Acute sinusitis, unspecified Safia Angel, EXPORT MANAGER 12/03/2018 J32.9 Chronic sinusitis, unspecified Safia Angel, EXPORT MANAGER 12/03/2018 J35.01 Chronic tonsillitis Safia Angel, EXPORT MANAGER 11/25/2018 J35.01 Chronic tonsillitis Jan Youssef MD 11/25/2018 J35.01 Chronic tonsillitis Domingo Haywood M.D. 11/25/2018 J32.9 Chronic sinusitis, unspecified Jan Youssef MD 11/25/2018 J32.9 Chronic sinusitis, unspecified Domingo Haywood M.D. 11/25/2018 J32.9 Chronic sinusitis, unspecified Domingo Haywood M.D. 11/16/2018 J01.90 Acute sinusitis, unspecified Safia Angel, EXPORT MANAGER 11/03/2018 J32.9 Chronic sinusitis, unspecified Domingo Haywood M.D. 11/03/2018 J35.01 Chronic tonsillitis Domingo Haywood M.D. 11/03/2018 J31.0 Chronic rhinitis Domingo Haywood M.D. 11/03/2018 J34.2 Deviated nasal septum Domingo Haywood M.D. 10/20/2018 J01.90 Acute sinusitis, unspecified Domingo Haywood M.D. 10/20/2018 R51 Headache Domingo Haywood M.D. 10/20/2018 J31.0 Chronic rhinitis Domingo Haywood M.D. Plan of Treatment No Information Available Functional Status Description No Information Available Mental Status Description No Information Available Referrals Refer to Dr Reason for Referral Status Appt Date Domingo Haywood M.D. NO AUTH REQ FOR SURGERY Created [address] [place] [phone] Domingo Haywood M.D. AUTH FOR CT Created [address] [place] [phone]
--- OUTSIDE RECORDS SUMMARY | 2019-04-20 10:17 | XMS REPORT | Continuity of Care Document ---
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 Problems Active Problems Provider Date Myalgia of auxiliary muscles, head and neck Sorin Orellana DO, MPH Onset: 10/2018 Cervical somatic dysfunction Sorin Orellana DO, MPH Onset: 10/19/2018 Somatic dysfunction of pelvic region Sorin Orellana DO, MPH Onset: 10/19/2018 Arthralgia of the pelvic region and thigh Sorin Orellana DO, MPH Onset: 2018 Neck pain Sorin Orellana DO, MPH Onset: 10/19/2018 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 due to injury Sorin Orellana DO, MPH Onset: 10/19/2018 Social History Type Date Description Comments Sex Unknown Cigarette Use Current Cigarette Smoker 1 Pack Daily ETOH Use Occasionally consumes alcohol Recreational Drug Use Denies Drug Use Tobacco Use Start: Unknown Patient is a current smoker, smokes every day Smoking Status Reviewed: 03/04/19 Patient is a current smoker, smokes every day Allergies, Adverse Reactions, Alerts Active Allergies Reaction Severity Comments Date Penicillin 06/26/2012 Medications Active Medications SIG Qnty Indications Ordering Date Provider Celebrex si-2 by mouth 60caps Sorin Orellana, 11/02/2018 200mg Capsules daily as directed DO, MPH chronic pain patient Gabapentin si by mouth 90caps Sorin Orellana, 03/05/2018 400mg every 8 as DO, MPH Capsules directed chronic pain. Oxycodone HCL si by mouth 120tabs Sorin Orellana, 12/23/2015 15mg every 4 to 6 DO, MPH Tablets hours as directed chronic pain patient Zanaflex si by mouth 90tabs Sorin Orellana, 07/13/2015 4mg Tablets three a day as DO, MPH directed chronic pain patient Aleve Unknown 220mg Capsules Singulair 1 by mouth every Unknown 10mg Tablets day Omeprazole 1 by mouth every Unknown 20mg day Capsules DR Wellbutrin SR si by mouth Unknown 150mg twice a day as Tablets ER 12HR directed Oxybutynin Chloride Unknown 5mg Tablets Ventolin HFA 1-2 puffs as Unknown needed every 4-6 108(90Base) mcg/Act hours for Aerosol shortness for breath Benadryl Allergy 1/2-1 by mouth Unknown 25mg three times a day Tablets as directed Nortriptyline HCL si by mouth Unknown 10mg every at night Capsules Immunizations Description No Information Available Vital Signs Date Vital Result Comment 03/04/2019 10:58am BP Systolic 130 mmHg BP Diastolic 78 mmHg Heart Rate 74 /min Respiratory Rate 20 /min Height 63 inches 5'3" Weight 162.00 lb Pain Level 7 Pain at this time. Pain Level With Medicine 6 on average with meds Pain Level Without Medicine 9 without meds BMI (Body Mass Index) 28.7 kg/m2 01/28/2019 11:10am BP Systolic 128 mmHg BP Diastolic 78 mmHg Heart Rate 74 /min Respiratory Rate 20 /min Height 63 inches 5'3" Weight 154.00 lb Pain Level 6 Pain at this time. Pain Level With Medicine 6 on average with meds Pain Level Without Medicine 9 without meds BMI (Body Mass Index) 27.3 kg/m2 Results Description No Information Available Procedures Date Code Description Status 01/28/2019 42168 Therapeutic, Prophylactic Or Diagnostic Injection Subq/Im Completed 01/04/2019 57207 Therapeutic, Prophylactic Or Diagnostic Injection Subq/Im Completed 12/02/2018 98946 Omt 1-2 Body Regions Completed 11/02/2018 24003 Therapeutic, Prophylactic Or Diagnostic Injection Subq/Im Completed 11/02/2018 92204 Test Autonomic Nervous System, Sudomotor Completed 11/02/2018 58958 Test Autonomic Nervous System, Cardiovagal Innervation Completed 11/02/201849689 Arthrocentesis/Aspiration/Inj Of Major Joint Or Bursa W/ Completed Ultra 10/19/2018 36215 Omt 1-2 Body Regions Completed 10/05/2018 59632 Omt 3-4 Body Regions Completed 10/05/2018 27377 Therapeutic, Prophylactic Or Diagnostic Injection Subq/Im Completed Medical Devices Description No Information Available Encounters Type Date Location Provider Dx Diagnosis Office Visit 01/28/2019 Main Office as Of Sorin Orellana DO G89.21 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 due 11:30a 03/13/13 MPH to trauma M54.2 Cervicalgia M54.6 Pain in thoracic spine M54.5 Low back pain Z79.891 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 R53.83 Other fatigue Office Visit 01/04/2019 10:00a Main Office as Sorin Orellana G89.21 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 due Of 03/13/13 DO, MPH to trauma M54.2 Cervicalgia M54.6 Pain in thoracic spine M54.5 Low back pain Z79.891 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 R53.83 Other fatigue Office Visit 12/02/2018 10:00a Main Office as Sorin Orellana G89.21 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 due Of 03/13/13 DO, MPH to trauma M54.2 Cervicalgia M99.00 Segmental and somatic dysfunction of head region M54.6 Pain in thoracic spine M54.5 Low back pain Z79.891 custodial (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 Office Visit 11/18/2018 2:00p Main Office as Sorin Orellana G89.21 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 due Of 03/13/13 DO, MPH to trauma M54.2 Cervicalgia M25.551 Pain in right hip M79.12 Myalgia of auxiliary muscles, head and neck Z79.891 custodial (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 Office Visit 11/02/2018 10:30a Main Office as Sorin Orellana G89.21 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 due Of 03/13/13 DO, MPH to trauma M54.2 Cervicalgia M25.551 Pain in right hip Z79.891 custodial (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 R53.83 Other fatigue 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 of the autonomic nervous system Office Visit 10/19/2018 10:15a Main Office as Sorin Orellana G89.21 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 due Of 03/13/13 DO, MPH to trauma M54.2 Cervicalgia M25.551 Pain in right hip M99.05 Segmental and somatic dysfunction of pelvic region M79.12 Myalgia of auxiliary muscles, head and neck Z79.891 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 M54.5 Low back pain M99.03 Segmental and somatic dysfunction of lumbar region Office Visit 10/05/2018 10:30a Main Office as Sorin Orellana G89.21 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 due Of 03/13/13 , MPH to trauma M54.2 Cervicalgia M99.01 Segmental and somatic dysfunction of cervical region M54.6 Pain in thoracic spine M99.02 Segmental and somatic dysfunction of thoracic region M54.5 Low back pain M99.03 Segmental and somatic dysfunction of lumbar region M25.571 Pain in right ankle and joints of right foot Z79.891 custodial (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 R53.83 Other fatigue Assessments Date Code Description Provider 03/04/2019 G89.21 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 Sorin Orellana DO, MPH 03/04/2019 M54.2 Cervicalgia Sorin Orellana DO, MPH 03/04/2019 M54.6 Pain in thoracic spine Sorin Orellana DO, MPH 03/04/2019 M54.5 Low back pain Sorin Orellana DO, MPH 03/04/2019 M79.12 Myalgia of auxiliary muscles, head and neck Sorin Orellana DO, MPH 03/04/2019 R53.83 Other fatigue Sorin Orlelana DO, MPH 03/04/2019 Z79.891 custodial (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 Sorin Orellana DO, MPH 03/04/2019 Z13.31 Encounter for screening for depression Sorin Orellana DO, MPH 01/28/2019 G89.21 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 Sorin Orellana DO, MPH 01/28/2019 M54.2 Cervicalgia Orellana, Sorin, DO, MPH 01/28/2019 M54.6 Pain in thoracic spine Orellana, Sorin, DO, MPH 01/28/2019 M54.5 Low back pain Orellana, Sorin, DO, MPH 01/28/2019 Z79.891 custodial (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 Orellana, Sorin , DO, MPH 01/28/2019 R53.83 Other fatigue Orellana, Sorin, DO, MPH 01/04/2019 G89.21 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 Orellana, Sorin, DO, MPH 01/04/2019 M54.2 Cervicalgia Orellana, Sorin, DO, MPH 01/04/2019 M54.6 Pain in thoracic spine Orellana, Sorin, DO, MPH 01/04/2019 M54.5 Low back pain Orellana, Sorin, DO, MPH 01/04/2019 Z79.891 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 Orellana, Sorin , DO, MPH 01/04/2019 R53.83 Other fatigue Orellana, Sorin, DO, MPH 12/02/2018 G89.21 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 Orellana, Sorin, DO, MPH 12/02/2018 M54.2 Cervicalgia Orellana, Sorin, DO, MPH 12/02/2018 M99.00 Segmental and somatic dysfunction of head Orellana, Sorin, DO , MPH region 12/02/2018 M54.6 Pain in thoracic spine Orellana, Sorin, DO, MPH 12/02/2018 M54.5 Low back pain Orellana, Sorin, DO, MPH 12/02/2018 Z79.891 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 Orellana, Sorin , DO, MPH 11/18/2018 G89.21 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 Orellana, Sorin, DO, MPH 11/18/2018 M54.2 Cervicalgia Orellana, Sorin, DO, MPH 11/18/2018 M25.551 Pain in right hip Orellana, Sorin, DO, MPH 11/18/2018 M79.12 Myalgia of auxiliary muscles, head and neck Orellana, Sorin, DO, MPH 11/18/2018 Z79.891 custodial (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 Orellana, Sorin , DO, MPH 11/02/2018 G89.21 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 Orellana, Sorin, DO, MPH 11/02/2018 M54.2 Cervicalgia Orellana, Sorin, DO, MPH 11/02/2018 M25.551 Pain in right hip Orellana, Sorin, DO, MPH 11/02/2018 Z79.891 custodial (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 Orellana, Sorin , DO, MPH 11/02/2018 R53.83 Other fatigue Orellana, Sorin, DO, MPH 11/02/2018 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 of the autonomic Orellana, Sorin, DO , MPH nervous system 10/19/2018 G89.21 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 Orellana, Sorin, DO, MPH 10/19/2018 M54.2 Cervicalgia Orellana, Sorin, DO, MPH 10/19/2018 M25.551 Pain in right hip Orellana, Sorin, DO, MPH 10/19/2018 M99.05 Segmental and somatic dysfunction of pelvic Orellana, Sorin, DO, MPH region 10/19/2018 M79.12 Myalgia of auxiliary muscles, head and neck Orellana, Sorin, DO, MPH 10/19/2018 Z79.891 custodial (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 Orellana, Sorin , DO, MPH 10/19/2018 M54.5 Low back pain Orellana, Sorin, DO, MPH 10/19/2018 M99.03 Segmental and somatic dysfunction of lumbar Orellana, Sorin, DO, MPH region 10/05/2018 G89.21 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 Orellana, Sorin, DO, MPH 10/05/2018 M54.2 Cervicalgia Orellana, Sorin, DO, MPH 10/05/2018 M99.01 Segmental and somatic dysfunction of Orellana, Sorin, DO, MPH cervical region 10/05/2018 M54.6 Pain in thoracic spine Orellana, Sorin, DO, MPH 10/05/2018 M99.02 Segmental and somatic dysfunction of Orellana, Sorin, DO, MPH thoracic region 10/05/2018 M54.5 Low back pain Sorin Orellana DO MPH 10/05/2018 M99.03 Segmental and somatic dysfunction of lumbar Sorin Orellana DO, MPH region 10/05/2018 M25.571 Pain in right ankle and joints of right foot Sorin Orellana DO, MPH 10/05/2018 Z79.891 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 Continue current medical pain management.M54.5 Low back painComments:Chronic. Symptoms and complaints discussed and reviewed today.No changes in physical findings. Patient is stable and comfortable when current medical therapy is rendered.M79.12 Myalgia of auxiliary muscles, head and neckComments:Chronic. Symptoms and complaints discussed and reviewed today. No significant changes in physical findings. Continue current medical pain management.R53.83 Other fatigueComments:Symptoms and complaints discussed and reviewed today. No significant changes in physical findings. Continue current medical pain management. B12 injection administered after patient evaluated. 1ml IM for fatigue. (See Consent for injection-B12 document for lot number and expiration date.)Z79.891 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New Labs: Urine Drug Screen, Ordered: 03/04/19Comments:Urine drug screen sample taken today to monitor opiate use and to monitor use of illicit substances.Will discuss results at next appointment.The following tests were ordered:6 AM, AMPH , MARGARITA, DORY, BUP, CARIS, COCM, ETG, FENT, MCSHSG, OPI, OXY, PCP, TAPEN, XTSY , ZOLP. A urine drug test (UDT) was ordered for this patient and collected on site today. Creatinine has been ordered as well for specimen validity, not for kidney function. Preliminary UDT results are not final and should not be used to determine patient care or plan of treatment. Initially a qualitative immunoassay screen will bedone. Any inconsistent or positive findings will be further tested with a more comprehensive quantitative confirmation LCMS study. It is part of the treatment process of prescribing controlled substances and is considered standard of care.Z13.31 Encounter for screening for depressionComments:PHQ-9 Depression Screen administered today, results were negative at this time. No positive symptoms on the Patient Health Questionnaire. Will follow up or repeat Screen as necessary in the future Will follow as pertains to their pain. Patient seems to be stable today.AllComments:Continue current medical pain management; injection therapy, osteopathic manipulation, PT / modalities, and consults as needed to manage chronic pain.Non - opioid pain management discussed and optionsdiscussed.Side effects discussed; anticipatory guidance given. Patient clearly understand and agree with all medical treatments and suggestions. All medicines prescribed are adequate and appropriate for this patient's complaint of pain, medical history, physical, and personal goals.Goals of Treatment are to provide adequate and appropriate multidisciplinary medical pain management to increase/ maintain patient's quality of life and functionality while maintaining satisfactory side effect profile andminimizing 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 accountant end-organ damage. Importance of regular nutrition throughout the day discussed.Activity as toleratedContinue with PCP Functional Status Description No Information Available Mental Status Description No Information Available Referrals Description No Information Available
--- OUTSIDE RECORDS SUMMARY | 2019-04-20 10:17 | XMS REPORT | Continuity of Care Document ---
:1970 External Reference #:[id number] Author Name Safia Angel NP (transmitted by agent of provider Radha Sparks) Address [address] [place] [address] Care Team Providers Name Role Phone Avel Martinez FNP Care Team Information Collection Systems Foreman [phone] Problems Active Problems Provider Date Chronic sinusitis Safia Angel NP Onset: 11/16/2018 Social History Type Date Description Comments Sex Unknown Tobacco Use Start: Unknown currently smokes 1/2 Pack Daily ETOH Use Rare Use Of Alcohol Recreational Drug Use Never Used Drugs Allergies, Adverse Reactions, Alerts Description No Known Drug Allergies Medications Active Medications SIG Qnty Indications Ordering Date Provider Ibuprofen 30 milliliters by 473ml Domingo Haywood, 11/19/2018 100mg/5ML mouth every 6 hours M.D. Suspension as needed pain Topiramate one to 2 at night 60tabs Domingo Haywood, 06/16/2018 50mg for 2 weeks M.D. Tablets Proair HFA 2 puffs four times 17gm Domingo Haywood, 11/14/2017 a day as needed for M.D. 108(90Base) mcg/Act sob Aerosol Oxycodone HCL 1 tab every 4 hours Unknown 15mg as needed for back Tablets pain Tizanidine HCL 1 by mouth every hs Unknown 4mg Capsules Gabapentin 3 tabs @hs Unknown 400mg Capsules Nyquil HBP Cold & prn @ hs Unknown Flu 15-6.25-325mg/15ML Liquid History Medications Amoxicillin/Clavulanate 1 by mouth 20tabs Domingo Haywood, 02/12/2019 - Potassium twice a day for M.D. 03/02/2019 875-125mg Tablets 10 days Dexamethasone one tab daily 5tabs Domingo Haywood, 01/06/2019 - 4mg Tablets M.D. 02/12/2019 Dexamethasone 1 tabs in a.m. 2tabs Domingo Haywood, 12/03/2018 - 6mg Tablets and may repeat M.D. 02/12/2019 in 2 days Dexamethasone [...] Available Vital Signs Date Vital Result Comment 03/02/2019 3:59pm Weight 160.00 lb Height 63 inches 5'3" BMI (Body Mass Index) 28.3 kg/m2 BP Systolic 152 mmHg BP Diastolic 102 mmHg Heart Rate 95 /min O2 % BldC Oximetry 99 % Body Temperature 97.2 F Pain Level 5 02/12/2019 9:58am Weight 162.00 lb Height 63 inches 5'3" BMI (Body Mass Index) 28.7 kg/m2 BP Systolic 128 mmHg BP Diastolic 85 mmHg Heart Rate 79 /min O2 % BldC Oximetry 99 % Body Temperature 98.1 F Pain Level 0 Results Test Acquired Date Facility Test Result H/L Range Note Laboratory test 11/25/2018 [facility] Surgical SEE RESULT [address] [place] [address] [phone] 1 SEE RESULT BELOW Name: CHINYERE CHONG : [address]: Domingo Haywood MD Acct: [id number] Unit: [id number] AGE: 47 Location: [facility] Re11/25/18 SEX: F Status: REG REF SPEC: [id number] ANJUM: 11/25/181321 SUBM DR: Domingo Haywood MD REQ: [id number] RECD: 11/25/18 STATUS: SOUT _ ORDERED: LEVEL 3/2 COMMENTS: [id number] FINAL DIAGNOSIS 1. Tonsil, right, tonsillectomy: -- [...] The specimen is inked, serially sectioned and home office representative sections are submitted in one cassette. 2. The specimen is received in formalin labeled, Left Tonsil, and consists of a 3.0 x 1.7 x 1.2 cm brock-sorenson ovoid cerebriform and focally cauterized tonsil with a small amount of adherent red-brown blood clot. The cut surface is glistening brock-pink with normal crypts. The specimen is inked, serially sectioned and home office representative sections are submitted in one cassette. CONTINUED ON NEXT PAGE DEPARTMENT OF PATHOLOGY, [address] [place] [address] Naif Villasenor M.D. Director [facility] # [id number] Signed by and Reported on: Ruth Horner MD 11/27/18 1300 END OF REPORT DEPARTMENT OF PATHOLOGY, [address] [place] [id number] Naif Villasenor M.D. Director [facility] # [id number] Procedures Date Code Description Status 11/25/2018 85578 Cat Scan Maxillofacial W/O Contrast,computed Completed tomography 11/25/2018 06063 Cat Scan Maxillofacial W/O Contrast,computed Completed tomography 11/25/2018 10770 Stereotactic Computer-Assisted, Cranial, Extradural Completed 11/25/2018 20934 Tonsillectomy;Age 12 Or Over Completed 11/25/2018 13669 Nasal/Sinus Endosc.W.Explor. Completed 11/25/2018 47907 Nasal/Sinus Endo Inc Sphenoido Completed 11/25/2018 46580 Nasal/Sinus Endosc.W.Max.Antrost. Completed 11/25/2018 26895 Anesthesia, Intraoral Surgery Not Otherwise Spec Completed 11/03/2018 09524 Nasal Endoscopy, Diag. Completed 10/20/2018 17099 Nasal Endoscopy, Diag. Completed 02/27/2016 588783715 Bone Mineral Density Test Completed 02/27/2016 085293978 Diabetic Retinal Eye Exam Completed 02/27/2016 411603548 Diabetic Foot Exam Completed 09/16/2011 893097917 Bone Mineral Density Test Completed 09/16/2011 298839933 Diabetic Retinal Eye Exam Completed 09/16/2011 912575210 Diabetic Foot Exam Completed Medical Devices Description No Information Available Encounters Type Date Location Provider Dx Diagnosis Office Visit 02/12/2019 Main Office Slava Dee Acute sinusitis, 9:45a ONLINE JOURNALIST unspecified Office Visit 11/16/2018 Main Office Lillie Dee01.Shazia Acute sinusitis, 9:30a ONLINE JOURNALIST unspecified Office Visit 11/03/2018 Main Office Domingo Haywood M.D. J32.9 Chronic sinusitis, 10:15a unspecified J35.01 Chronic tonsillitis J31.0 Chronic rhinitis J34.2 Deviated nasal septum Office Visit 10/20/2018 2:15p Main Office Domingo Haywood J01Forest Acute sinusitis, [email or web address] unspecified R51 Headache J31.0 Chronic rhinitis Assessments Date Code Description Provider 02/12/2019 J01.90 Acute sinusitis, unspecified Safia Angel NP 12/03/2018 J32.9 Chronic sinusitis, unspecified Safia Angel NP 12/03/2018 J35.01 Chronic tonsillitis Safia Angel NP 11/25/2018 J35.01 Chronic tonsillitis Jan Youssef MD 11/25/2018 J35.01 Chronic tonsillitis Domingo Haywood M.D. 11/25/2018 J32.9 Chronic sinusitis, unspecified Jan Youssef MD 11/25/2018 J32.9 Chronic sinusitis, unspecified Domingo Haywood M.D. 11/25/2018 J32.9 Chronic sinusitis, unspecified Domingo Haywood M.D. 11/16/2018 J01.90 Acute sinusitis, unspecified Safia Angel, RAVEN 11/03/2018 J32.9 Chronic sinusitis, unspecified Domingo Haywood [...] Description No Information Available Referrals Refer to Reason for Referral Status Appt Date Domingo Haywood M.D. NO AUTH REQ FOR SURGERY Created [address] [place] [address] [phone] Domingo Haywood M.D. AUTH FOR CT Created [address] [place] [address] [phone]
--- OUTSIDE RECORDS SUMMARY | 2019-04-20 10:17 | XMS REPORT | Continuity of Care Document ---
:1970 External Reference #:[id number] Author Name Safia Angel NP Address [address] [place] [address] Care Team Providers Name Role Phone Avel Martinez FNP Care Team Information Customs Consultant [phone] Problems Active Problems Provider Date Chronic sinusitis Safia Angel NP Onset: 11/16/2018 Social History Type Date Description Comments Sex Unknown Tobacco Use Start: Unknown currently smokes 1/2 Pack Daily ETOH Use Rare Use Of Alcohol Recreational Drug Use Never Used Drugs Allergies, Adverse Reactions, Alerts Description No Known Drug Allergies Medications Active Medications SIG Qnty Indications Ordering Date Provider Clindamycin HCL 1 by mouth twice a 20caps Domingo Haywood, 04/06/2019 300mg day for 10 days M.D. Capsules Fluticasone 2 sprays each 29.7ml Domingo Haywood, 04/06/2019 Propionate nostril every day M.D. 50mcg/Act Suspension Nortriptyline HCL 1 tabs at bedtime, 42caps [...] Result H/L Range Note Laboratory test 11/25/2018 [facility] Surgical SEE RESULT [address] Pathology BELOW [place] [id number] [phone] 1 SEE RESULT BELOW Name: CHINYERE CHONG : [address]: Domingo Haywood MD Acct: [id number] Unit: [id number] AGE: 47 Location: [facility] Re11/25/18 SEX: F Status: REG REF SPEC: [id number] ANJUM: 11/25/181 [facility] DR: Domingo Haywood MD REQ: [id number] RECD: 11/25/18 STATUS: SOUT _ ORDERED: LEVEL 3/2 COMMENTS: [id number] FINAL DIAGNOSIS 1. Tonsil, right, tonsillectomy: -- [...] The specimen is inked, serially sectioned and telemarketing sales representative sections are submitted in one cassette. 2. The specimen is received in formalin labeled, Left Tonsil, and consists of a 3.0 x 1.7 x 1.2 cm brock-sorenson ovoid cerebriform and focally cauterized tonsil with a small amount of adherent red-brown blood clot. The cut surface is glistening brock-pink with normal crypts. The specimen is inked, serially sectioned and telemarketing sales representative sections are submitted in one cassette. CONTINUED ON NEXT PAGE DEPARTMENT OF PATHOLOGY, [address] [place] [address] Naif Villasenor M.D. Director [facility] # [id number] Signed by and Reported on: Ruth Horner MD 11/27/18 1300 END OF REPORT DEPARTMENT OF PATHOLOGY, [address] [place] [address] Naif Villasenor M.D. Director [facility] # [id number] Procedures Date Code Description Status 11/25/2018 37361 Cat Scan Maxillofacial W/O Contrast,computed Completed tomography 11/25/2018 95688 Cat Scan Maxillofacial W/O Contrast,computed Completed tomography 11/25/2018 95879 Stereotactic Computer-Assisted, Cranial, Extradural Completed 11/25/2018 57034 Tonsillectomy;Age 12 Or Over Completed 11/25/2018 39330 Nasal/Sinus Endosc.W.Explor. Completed 11/25/2018 99470 Nasal/Sinus Endo Inc Sphenoido Completed 11/25/2018 45390 Nasal/Sinus Endosc.W.Max.Antrost. Completed 11/25/2018 51741 Anesthesia, Intraoral Surgery Not Otherwise Spec Completed 11/03/2018 63145 Nasal Endoscopy, Diag. Completed 10/20/2018 32405 Nasal Endoscopy, Diag. Completed 02/27/2016 [id number] Bone Mineral Density Test Completed 02/27/2016 [id number] Diabetic Retinal Eye Exam Completed 02/27/2016 [id number] Diabetic Foot Exam Completed 09/16/2011 839918240 Bone Mineral Density Test Completed 09/16/2011 160941464 Diabetic Retinal Eye Exam Completed 09/16/2011 392342074 Diabetic Foot Exam Completed Medical Devices Description No Information Available Encounters Type Date Location Provider Dx Diagnosis Office Visit 04/06/2019 Main Office Loi Dee.Shazia Acute sinusitis, 3:45p BIOMEDICAL ENGINEERING TECHNOLOGIST unspecified R51 Headache Office Visit 03/02/2019 4:00p Main Office Safia Moreira32.9 Chronic sinusitis, Angel, BIOMEDICAL ENGINEERING TECHNOLOGIST unspecified R51 Headache Office Visit 02/12/2019 9:45a Main Office Safia Moreira01.90 Acute sinusitis, Angel, BIOMEDICAL ENGINEERING TECHNOLOGIST unspecified Office Visit 11/16/2018 9:30a Main Office Safia Moreira01.90 Acute sinusitis, Angel, BIOMEDICAL ENGINEERING TECHNOLOGIST unspecified Office Visit 11/03/2018 10:15a Main Office Domingo Haywood J32.9 Chronic sinusitisLavinia unspecified J35.01 Chronic tonsillitis J31.0 Chronic rhinitis J34.2 Deviated nasal septum Office Visit 10/20/2018 2:15p Main Office Domingo Haywood J01.Shazia Acute sinusitis, M.D. unspecified R51 Headache J31.0 Chronic rhinitis Assessments Date Code Description Provider 04/06/2019 J01.90 Acute sinusitis, unspecified Safia Salvador Angel, BIOMEDICAL ENGINEERING TECHNOLOGIST 04/06/2019 R51 Headache Safia A Stanley, BIOMEDICAL ENGINEERING TECHNOLOGIST 03/02/2019 J32.9 Chronic sinusitis, unspecified Safia A Stanley, BIOMEDICAL ENGINEERING TECHNOLOGIST 03/02/2019 R51 Headache Safia A Stanley, BIOMEDICAL ENGINEERING TECHNOLOGIST 02/12/2019 J01.90 Acute sinusitis, unspecified Safia Salvador Angel, BIOMEDICAL ENGINEERING TECHNOLOGIST 12/03/2018 J32.9 Chronic sinusitis, unspecified Safia Salvador Angel, BIOMEDICAL ENGINEERING TECHNOLOGIST 12/03/2018 J35.01 Chronic tonsillitis Safia Angel, BIOMEDICAL ENGINEERING TECHNOLOGIST 11/25/2018 J35.01 Chronic tonsillitis Jan Youssef MD 11/25/2018 J35.01 Chronic tonsillitis Domingo Haywood M.D. 11/25/2018 J32.9 Chronic sinusitis, unspecified Jan Youssef MD 11/25/2018 J32.9 Chronic sinusitis, unspecified Domingo Haywood M.D. 11/25/2018 J32.9 Chronic sinusitis, unspecified Domingo Haywood M.D. 11/16/2018 J01.90 Acute sinusitis, unspecified Safia Angel, BIOMEDICAL ENGINEERING TECHNOLOGIST 11/03/2018 J32.9 Chronic sinusitis, unspecified Domingo Haywood M.D. 11/03/2018 J35.01 Chronic tonsillitis Domingo Haywood M.D. 11/03/2018 J31.0 Chronic rhinitis Domingo Haywood M.D. 11/03/2018 J34.2 Deviated nasal septum Domingo Haywood M.D. 10/20/2018 J01.90 Acute sinusitis, unspecified Domingo Haywood M.D. 10/20/2018 R51 Headache Domingo Haywood M.D. 10/20/2018 J31.0 Chronic rhinitis Domingo Haywood M.D. Plan of Treatment Future Appointment(s):04/27/2019 4:00 pm - Safia Angel NP at Main Office Functional Status Description No Information Available Mental Status Description No Information Available Referrals Refer to Reason for Referral Status Appt Date Domingo Haywood M.D. NO AUTH REQ FOR SURGERY Created [address] [place] [address] [phone] Domingo Haywood M.D. AUTH FOR CT Created [address] [place] [address] [phone]
--- OUTSIDE RECORDS SUMMARY | 2019-04-20 10:17 | XMS REPORT | Continuity of Care Document ---
:1970 External Reference #:[id number] Author Name Sorin Orellana DO, MPH Address [address] [place] [address], [address] [place] [address] Care Team Providers Name Role Phone Blayne Batista MD - Orthopaedic Care Team Information Chemists [phone] Surgery Avel Martinez V., NP - Nurse Care Team Information Chemists Practitioner Problems Active Problems Provider Date Myalgia [...] smoker, smokes every day Smoking Status Reviewed: 04/01/19 Patient is a current smoker, smokes every [...] Available Vital Signs Date Vital Result Comment 04/01/2019 3:32pm BP Systolic 128 mmHg BP Diastolic 74 mmHg Heart Rate 76 /min Respiratory Rate 20 /min Height 63 inches 5'3" Weight 162.00 lb Pain Level 6 Pain at this time. Pain Level With Medicine 6 on average with meds Pain Level Without Medicine 9 without meds BMI (Body Mass Index) 28.7 kg/m2 03/04/2019 10:58am BP Systolic 130 mmHg BP Diastolic 78 mmHg Heart Rate 74 /min Respiratory Rate 20 /min Height 63 inches 5'3" Weight 162.00 lb Pain Level 7 Pain at this time. Pain Level With Medicine 6 on average with meds Pain Level Without Medicine 9 without meds BMI (Body Mass Index) 28.7 kg/m2 Results Description No Information Available Procedures Date Code Description Status 03/04/2019 46739 Therapeutic, Prophylactic Or Diagnostic Injection Subq/Im Completed 03/04/2019 82912 Brief Emotional/Behav Assessment W/ Scoring Doc Per Completed Standard Inst 01/28/2019 57588 Therapeutic, Prophylactic Or Diagnostic Injection Subq/Im Completed 01/04/2019 00090 Therapeutic, Prophylactic Or Diagnostic Injection Subq/Im Completed 12/02/2018 10561 Omt 1-2 Body Regions Completed 11/02/2018 08158 Therapeutic, Prophylactic Or Diagnostic Injection Subq/Im Completed 11/02/2018 09329 Test Autonomic Nervous System, Sudomotor Completed 11/02/2018 19529 Test Autonomic Nervous System, Cardiovagal Innervation Completed 11/02/2018 22176 Arthrocentesis/Aspiration/Inj Of Major Joint Or Bursa W/ Completed Ultra 10/19/2018 21272 Omt 1-2 Body Regions Completed 10/05/2018 65830 Omt 3-4 Body Regions Completed 10/05/2018 66948 Therapeutic, Prophylactic Or Diagnostic Injection Subq/Im Completed Medical Devices Description No Information Available Encounters Type Date Location Provider Dx Diagnosis Office Visit 03/04/2019 Main Office as Of Sorin Orellana DO G89.21 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 due 11:00a 03/13/13 MPH to trauma M54.2 Cervicalgia M54.6 Pain in thoracic spine M54.5 Low back pain M79.12 Myalgia of auxiliary muscles, head and neck R53.83 Other fatigue 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 manager (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 Z13.31 Encounter for screening for depression Office Visit 01/28/2019 11:30a Main Office as Sorin Orellana G89.21 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 due Of 2/ DO, MPH to trauma M54.2 Cervicalgia M54.6 Pain in thoracic spine M54.5 Low back pain Z79.891 [facility] (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 R53.83 Other fatigue Office Visit 01/04/2019 10:00a Main Office as Sorin Orellana G89.21 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 due Of 2//14 DO, MPH to trauma M54.2 Cervicalgia M54.6 Pain in thoracic spine M54.5 Low back pain Z79.891 [facility] (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 R53.83 Other fatigue Office Visit 12/02/2018 10:00a Main Office as Sorin Orellana G89.21 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 due Of 2//14 DO, MPH to trauma M54.2 Cervicalgia M99.00 Segmental and somatic dysfunction of head region M54.6 Pain in thoracic spine M54.5 Low back pain 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 manager (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 Office Visit 11/18/2018 2:00p Main Office as Sorin Orellana G89.21 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 due Of 03/13/13 DO, MPH to trauma M54.2 Cervicalgia M25.551 Pain in right hip M79.12 Myalgia of auxiliary muscles, head and neck Z79.891 [facility] (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 Office Visit 11/02/2018 10:30a Main Office as Sorin Orellana G89.21 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 due Of 03/13/13 DO, MPH to trauma M54.2 Cervicalgia M25.551 Pain in right hip Z79.891 [facility] (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 R53.83 Other fatigue 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 of the autonomic nervous system Office Visit 10/19/2018 10:15a Main Office as Sorin Orellana G89.21 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 due Of 03/13/13 DO, MPH to trauma M54.2 Cervicalgia M25.551 Pain in right hip M99.05 Segmental and somatic dysfunction of pelvic region M79.12 Myalgia of auxiliary muscles, head and neck 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 manager (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 M54.5 Low [...] ankle and joints of right foot 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 manager (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 R53.83 Other fatigue Assessments Date Code Description Provider 04/01/2019 G89.21 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 Sorin Orellana DO, MPH 04/01/2019 M54.2 Cervicalgia Sorin Orellana DO, MPH 04/01/2019 M54.5 Low back pain Sorin Orellana DO, MPH 04/01/2019 R53.83 Other fatigue Orellana, Sorin, DO, MPH 03/04/2019 G89.21 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 Orellnaa, Sorin, DO, MPH 03/04/2019 M54.2 Cervicalgia Orellana, Sorin, DO, MPH 03/04/2019 M54.6 Pain in thoracic spine Orellana, Sorin, DO, MPH 03/04/2019 M54.5 Low back pain Orellana, Sorin, DO, MPH 03/04/2019 M79.12 Myalgia of auxiliary muscles, head and neck Orellana, Sorin, DO, MPH 03/04/2019 R53.83 Other fatigue Orellana, Sorin, DO, MPH 03/04/2019 Z79.891 [facility] (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 Orellana, Sorin , DO, MPH 03/04/2019 Z13.31 Encounter for screening for depression Orellana, Sorin, DO, MPH 01/28/2019 G89.21 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 Orellana, Sorin, DO, MPH 01/28/2019 M54.2 Cervicalgia Orellana, Sorin, DO, MPH 01/28/2019 M54.6 Pain in thoracic spine Orellana, Sorin, DO, MPH 01/28/2019 M54.5 Low back pain Orellana, Sorin, DO, MPH 01/28/2019 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 manager (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 Orellana, Sorin , DO, MPH 01/28/2019 R53.83 Other fatigue Orellana, Sorin, DO, MPH 01/04/2019 G89.21 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 Orellana, Sorin, DO, MPH 01/04/2019 M54.2 Cervicalgia Orellana, Sorin, DO, MPH 01/04/2019 M54.6 Pain in thoracic spine Orellana, Sorin, DO, MPH 01/04/2019 M54.5 Low back pain Orellana, Sorin, DO, MPH 01/04/2019 Z79.891 [facility] (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 Orellana, Sorin , DO, MPH 01/04/2019 R53.83 Other fatigue Orellana, Sorin, DO, MPH 12/02/2018 G89.21 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 Orellana, Soirn, DO, MPH 12/02/2018 M54.2 Cervicalgia Orellana, Sorin, DO, MPH 12/02/2018 M99.00 Segmental and somatic dysfunction of head Orellana, Sorin, DO , MPH region 12/02/2018 M54.6 Pain in thoracic spine Orellana, Sorin, DO, MPH 12/02/2018 M54.5 Low back pain Orellana, Sorin, DO, MPH 12/02/2018 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 manager (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 Orellana, Sorin , DO, MPH 11/18/2018 G89.21 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 Orellana, Sorin, DO, MPH 11/18/2018 M54.2 Cervicalgia Orellana, Sorin, DO, MPH 11/18/2018 M25.551 Pain in right hip Orellana, Sorin, DO, MPH 11/18/2018 M79.12 Myalgia of auxiliary muscles, head and neck Orellana, Sorin, DO, MPH 11/18/2018 Z79.891 [facility] (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 Orellana, Sorin , DO, MPH 11/02/2018 G89.21 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 Orellana, Sorin, DO, MPH 11/02/2018 M54.2 Cervicalgia Orellana, Sorin, DO, MPH 11/02/2018 M25.551 Pain in right hip Orellana, Sorin, DO, MPH 11/02/2018 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 manager (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 Orellana, Sorin [...] head and neck Sorin Orellana DO, MPH 10/19/2018 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 manager (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 Sorin Orellana DO, MPH 10/19/2018 M54.5 Low back pain Sorin Orellana DO, MPH 10/19/2018 M99.03 Segmental and somatic dysfunction of lumbar Sorin Orellana DO, MPH region 10/05/2018 G89.21 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 Sorin Orellana DO, MPH 10/05/2018 M54.2 Cervicalgia Sorin Orellana DO, MPH 10/05/2018 M99.01 Segmental and somatic dysfunction of Sorin Orellana DO, MPH cervical region 10/05/2018 M54.6 Pain in thoracic spine Sorin Orellana DO, MPH 10/05/2018 M99.02 Segmental and somatic dysfunction of Sorin Orellana DO, MPH thoracic region 10/05/2018 M54.5 Low back pain Sorin Orellana DO, MPH 10/05/2018 M99.03 Segmental and somatic dysfunction of lumbar Sorin Orellana DO, MPH region 10/05/2018 M25.571 Pain in right ankle and joints of right foot Sorin Orellana DO, MPH 10/05/2018 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 manager (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 No significant changes in physical findings. Continue current medical pain management. B12 injection administered after patient evaluated. 1ml IM for fatigue. (See Consent for injection-B12 document for lot number and expiration date.)AllComments:Continue current medical pain management; injection therapy, osteopathic [...] while maintaining satisfactory side effect profile andminimizing jail end-organ damage. Importance of regular nutrition throughout the day discussed.Activity as toleratedContinue with PCP Functional Status Description No Information Available Mental Status Description No Information Available Referrals Description No Information Available
--- OUTSIDE RECORDS SUMMARY | 2019-04-20 10:17 | XMS REPORT | Continuity of Care Document ---
:1970 External Reference #:[id number] Author Name Safia Angel NP Address [address] [place] [address] Care Team Providers Name Role Phone Avel Martinez FNP Care Team Information Government Service Executive [phone] Problems Active Problems Provider Date Chronic sinusitis [...] next week Prednisone 1 by mouth every 5tabs Domingo Haywood, 03/02/2019 10mg Tablets morning M.D. [...] Result H/L Range Note Laboratory test 11/25/2018 [facility] Surgical SEE RESULT [address] [place] [address] [phone] 1 SEE RESULT BELOW Name: CHINYERE CHONG : [address]: Domingo Haywood MD Acct: [id number] Unit: [id number] AGE: 47 Location: [facility] Re11/25/18 SEX: F Status: REG REF SPEC: [id number] ANJUM: 11/25/[address] [facility] [address]: Domingo Haywood MD REQ: [id number] RECD: 11/25/18 STATUS: SOUT _ ORDERED: LEVEL 3/2 COMMENTS: [id number] FINAL DIAGNOSIS 1. Tonsil, right, tonsillectomy: -- [...] The specimen is inked, serially sectioned and community engagement representative sections are submitted in one cassette. 2. The specimen is received in formalin labeled, Left Tonsil, and consists of a 3.0 x 1.7 x 1.2 cm brock-sorenson ovoid cerebriform and focally cauterized tonsil with a small amount of adherent red-brown blood clot. The cut surface is glistening brock-pink with normal crypts. The specimen is inked, serially sectioned and community engagement representative sections are submitted in one cassette. CONTINUED ON NEXT PAGE DEPARTMENT OF PATHOLOGY, [facility] [place] [address] Naif Villasenor M.D. Director [facility] # [id number] Signed by and Reported on: Ruth Horner MD 11/27/18 1300 END OF REPORT DEPARTMENT OF PATHOLOGY, [facility] [place], [place] [address] Naif Villasenor M.D. Director [facility] # [id number] Procedures Date Code Description Status 11/25/2018 16228 Cat Scan Maxillofacial W/O Contrast,computed Completed tomography 11/25/2018 04915 Cat Scan Maxillofacial W/O Contrast,computed Completed tomography 11/25/2018 09470 Stereotactic Computer-Assisted, Cranial, Extradural Completed 11/25/2018 02605 Tonsillectomy;Age 12 Or Over Completed 11/25/2018 20909 Nasal/Sinus Endosc.W.Explor. Completed 11/25/2018 13265 Nasal/Sinus Endo Inc Sphenoido Completed 11/25/2018 59540 Nasal/Sinus Endosc.W.Max.Antrost. Completed 11/25/2018 67772 Anesthesia, Intraoral Surgery Not Otherwise Spec Completed 11/03/2018 74719 Nasal Endoscopy, Diag. Completed 10/20/2018 27541 Nasal Endoscopy, Diag. Completed 02/27/2016 478880922 Bone Mineral Density Test Completed 02/27/2016 231386728 Diabetic Retinal Eye Exam Completed 02/27/2016 308256914 Diabetic Foot Exam Completed 09/16/2011 274139858 Bone Mineral Density Test Completed 09/16/2011 791231171 Diabetic Retinal Eye Exam Completed 09/16/2011 809726358 Diabetic Foot Exam Completed Medical Devices Description No Information Available Encounters Type Date Location Provider Dx Diagnosis Office Visit 03/02/2019 Main Office Aliza Dee.Antonia Chronic sinusitis, 4:00p LIBRARY AIDE unspecified R51 Headache Office Visit 02/12/2019 9:45a Main Office Safia Moreira01.90 Acute sinusitis, Stanley, RAVEN unspecified Office Visit 11/16/2018 9:30a Main Office Safia Monsivais.90 Acute sinusitis, Angel, LIBRARY AIDE unspecified Office Visit 11/03/2018 10:15a Main Office Domingo Haywood J32.Antonia Chronic sinusitis, M.D. unspecified J35.01 Chronic tonsillitis J31.0 Chronic rhinitis J34.2 Deviated nasal septum Office Visit 10/20/2018 2:15p Main Office Domingo Haywood J01.90 Acute sinusitis, M.D. unspecified R51 Headache J31.0 Chronic rhinitis Assessments Date Code Description Provider 03/02/2019 J32.9 Chronic sinusitis, unspecified Safia Angel NP 03/02/2019 R51 Headache Safia Angel NP 02/12/2019 J01.90 Acute sinusitis, unspecified Safia Angel, LIBRARY AIDE 12/03/2018 J32.9 Chronic sinusitis, unspecified Safia Angel, RAVEN 12/03/2018 J35.01 Chronic tonsillitis Safia Angel, RAVEN 11/25/2018 J35.01 Chronic tonsillitis Jan Youssef MD [...] Domingo Haywood M.D. Plan of Treatment Future Appointment(s):04/06/2019 3:45 pm - Safia Angel NP at Main Office Functional Status Description No Information Available Mental Status Description No Information Available Referrals Refer to Reason for Referral Status Appt Date Domingo Haywood M.D. NO AUTH REQ FOR SURGERY Created [address] [place] [address] [phone] Domingo Haywood M.D. AUTH FOR CT Created [address] [place] [address] [phone]
[2019-04-20 11:01] VITALS: BP 120/82
--- NOTE | 2019-04-20 11:33 | UC ---
Respiratory Complaint HPI - HPI Summary HPI Summary: cough x 2 weeks , cough is productive with yellow sputum worse with deep breathing, better with rest had sinus infection past 3 weeks, was on 2 different antibiotics denies any sob , no wheezing, chest is very tight, concern about pneumonia - History of Current Complaint Chief Complaint: UCRespiratory Stated Complaint: CHEST CONGESTION Time Seen by Provider: 04/20/19 11:15 Hx Obtained From: Patient Hx Last Menstrual Period: 04/12/16 ?: No Onset/Duration: Gradual Onset, Lasting Weeks - 2, Still Present Timing: Constant Severity Initially: Moderate Severity Currently: Moderate Pain Intensity: 4 Character: Cough: Nonproductive Aggravating Factors: Allergens, Exertion, Deep Breaths, Recumbent Position Associated Signs And Symptoms: Positive: Chills, Wheezing, Sinus Discomfort. Negative: Dyspnea, Fever, Pleuritic Chest Pain, Hemoptysis, Dizziness, Calf Pain , Calf Swelling, Edema, URI - Allergies/Home Medications Allergies/Adverse Reactions: Allergies Allergy/AdvReac Type Severity Reaction Status Date / Time No Known Allergies Allergy Verified 04/20/19 10:54 Home Medications: Home Medications Tizanidine HCl 4 - 8 mg PO BEDTIME 05/02/16 [History Confirmed 04/20/19] Albuterol HFA INHALER* [Ventolin HFA Inhaler*] 1 - 2 puff INH Q4H PRN 05/15/18 [ History Confirmed 04/20/19] Gabapentin 1,200 mg PO BEDTIME 05/15/18 [History Confirmed 04/20/19] Oxycodone HCl [Roxicodone] 15 mg PO QID 09/12/18 [History Confirmed 04/20/19] Fluticasone NASAL SPRAY 50MCG* [Flonase NASAL SPRAY 50MCG*] 2 spray BOTH NARES DAILY #1 btl 04/20/19 [Rx] Nortriptyline CAP* [Pamelor CAP*] 20 mg PO BEDTIME 04/20/19 [History Confirmed 04/20/19] Phenylephrine HCl/Acetaminophn [Vicks Sinex Daytime Conge 5-325 mg] 2 cap PO Q6H PRN 04/20/19 [History Confirmed 04/20/19] celeCOXIB CAP* [CeleBREX CAP*] 200 - 400 mg PO QAM 04/20/19 [History Confirmed 04/20/19] predniSONE [Prednisone 20 MG TAB] 20 mg PO BID #10 tablet 04/20/19 [Rx] PMH/Surg Hx/FS Hx/Imm Hx - Additional Past Medical History Additional PMH: Degenerative Disc Disease, Neuropathy, Scoliosis, Spinabifida Previously Healthy: Yes Respiratory History: Asthma Other History Of: Negative For: HIV, Hepatitis B, Hepatitis C, Anticoagulant Therapy - Surgical History Surgical History: Yes Surgery Procedure, Year, and Place: T&A and Sinuses, 2019, [facility]; Sinuses , 2018, [facility]; Tubal Ligation, ~2004; Appendectomy, ~1991 - Family History Known Family History: Positive: Non-Contributory Negative: Cardiac Disease, Diabetes - Social History Alcohol Use: None Substance Use Type: Synthetic Drugs Smoking Status (MU): Heavy Every Day Tobacco Smoker Type: Cigarettes Amount Used/How Often: 1 PPD Length of Time of Smoking/Using Tobacco: Since Age 16 Have You Smoked in the Last Year: Yes - Immunization History Most Recent Influenza Vaccination: [id number] Review of Systems All Other Systems Reviewed And Are Negative: Yes Constitutional: Positive: Chills. Negative: Fever Skin: Positive: Negative Eyes: Positive: Negative ENT: Positive: Sore Throat, Ear Ache, Nasal Discharge Respiratory: Positive: Cough Cardiovascular: Positive: Negative Is Patient Immunocompromised?: No Physical Exam Triage Information Reviewed: Yes Appearance: Well-Appearing, No Pain Distress, Well-Nourished Vital Signs: Initial Vital Signs Temp 98.1 F 04/20/19 10:49 Pulse 76 04/20/19 10:49 Resp 18 04/20/19 10:49 BP 120/82 04/20/19 10:49 Pulse Ox 99 04/20/19 10:49 Vital Signs Reviewed: Yes Eye Exam: Normal Eyes: Positive: Conjunctiva Clear ENT: Positive: Normal ENT inspection, Hearing grossly normal, Pharynx normal, Pharyngeal erythema, Nasal drainage Neck: Positive: Supple, Nontender, No Lymphadenopathy Respiratory Exam: Normal Respiratory: Positive: Chest non-tender, Lungs clear, Normal breath sounds Cardiovascular: Positive: RRR, No Murmur, Pulses Normal Abdominal Exam: Normal Diagnostics - Radiology No standard instances Radiology Interpretation Completed By: Radiologist Summary of Radiographic Findings: chest x ray report: IMPRESSION: NO ACTIVE CARDIOPULMONARY DISEASE. Respiratory Course/Dx - Differential Dx/Diagnosis Provider Diagnosis: Bronchitis Discharge ED - Sign-Out/Discharge Documenting (check all that apply): Patient Departure All imaging exams completed and their final reports reviewed: Yes - Discharge Plan Condition: Stable Disposition: HOME Prescriptions: Fluticasone NASAL SPRAY 50MCG* [Flonase NASAL SPRAY 50MCG*] 2 spray BOTH NARES DAILY #1 btl predniSONE [Prednisone 20 MG TAB] 20 mg PO BID #10 tablet Patient Education Materials: Acute Bronchitis (ED) Referrals: Niki Martinez NP [Primary Care Provider] - 7 Days - Billing Disposition and Condition Condition: STABLE Disposition: Home
== END 2019-04-20 11:51 | disposition home or self-care (01) ==
LOC: UCCORT 10:09
DX: J40 Bronchitis, not specified as acute or chronic (principal); J45.909 Unspecified asthma, uncomplicated; Z79.51 Long term (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 inhaled steroids; G62.9 Polyneuropathy, unspecified; F17.210 Nicotine dependence, cigarettes, uncomplicated; Z79.52 Long term (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 systemic steroids
CPT/HCPCS: 71046; 99212; G0463